=== PATIENT | male | born 1940 | race Caucasian/White ===

== ENCOUNTER → 2023-11-30 10:44 | Outpatient (REF) | payer MEDICARE, OTHER, SELFPAY | LOC: RAD 10:44 | PROVIDERS: ATTENDING PHYSICIAN Nurse Practitioner Family | DX: R42 Dizziness and giddiness (principal) | CPT/HCPCS: 70450 ==

== ENCOUNTER → 2023-12-01 09:49 | Outpatient (REF) | payer MEDICARE, OTHER, SELFPAY ==
[2023-12-01 12:14] LABS: ALT (SGPT) 24 U/L (0-50); AST (SGOT) 34 U/L (17-59); Albumin 4.1 g/dl (3.5-5.0); Alkaline Phosphatase 64 U/L (38-126); Blood Urea Nitrogen 26 mg/dl (9-20); Calcium 9.6 mg/dl (8.4-10.2); Carbon Dioxide 26 mmol/L (22-30); Chloride 104 mmol/L (98-107); Glucose 113 mg/dl (70-99); Potassium 4.1 mmol/L (3.5-5.1); Sodium 138 mmol/L (135-145); Total Bilirubin 2.4 mg/dl (0.2-1.3); Total Protein 6.9 g/dl (6.3-8.2); eGFR > 60.00
[2023-12-01 12:18] LABS: % Basophils 0.7 % (0-2); % Eosinophils 1.9 % (0-6); % Immature Granulocytes 0.2 % (0-0.5); % Lymphocytes 21.1 % (20.5-51.1); % Monocytes 9.7 % (1.7-9.3); % Neutrophils 66.4 % (42.2-75.2); Absolute Eosinophils 0.1 10^3/uL (0-0.7); Absolute Lymphocytes 1.2 10^3/uL (1.2-3.4); Absolute Monocytes 0.6 10^3/uL (0.1-0.6); Absolute Neutrophils 3.8 10^3/uL (1.4-6.5); Hematocrit 44.8 % (39.0-52.0); Mean Corp Hgb Conc. 33.5 g/dL (33.0-37.0); Mean Corpuscular Hgb 30.3 pg (27.0-31.0); Mean Corpuscular Volume 90.5 fL (80.0-94.0); Mean Platelet Volume 9.8 fL (7.4-10.4); Nucleated Red Blood Cells % 0 % (-); Platelet Count 206 10^3/uL (130-400); Red Blood Cell Count 4.95 10^6/uL (4.70-6.10); Red Cell Dist. Width 12.9 % (11.5-14.5); White Blood Cell Count 5.7 10^3/uL (4.8-10.8)
[2023-12-01 12:41] LABS: TSH Reflex To Free T4 1.44 uIU/ml (0.47-4.68)
== END ==
LOC: HWLAB 09:49
PROVIDERS: ATTENDING PHYSICIAN Nurse Practitioner Family
DX: R42 Dizziness and giddiness (principal); E78.2 Mixed hyperlipidemia
CPT/HCPCS: 36415; 80053; 84443; 85025

== ENCOUNTER → 2023-12-06 08:31 | Outpatient (REF) | payer MEDICARE, OTHER, SELFPAY | LOC: RCS 08:31 | PROVIDERS: ATTENDING PHYSICIAN Nurse Practitioner Family | DX: R42 Dizziness and giddiness (principal) | CPT/HCPCS: 93225; 93226 ==

== ENCOUNTER → 2024-04-05 09:59 | Outpatient (REF) | payer MEDICARE, OTHER, SELFPAY ==
[2024-04-05 12:09] LABS: % Basophils 1.1 % (0-2); % Eosinophils 2.2 % (0-6); % Immature Granulocytes 0.2 % (0-0.5); % Lymphocytes 18.7 % (20.5-51.1); % Monocytes 9.3 % (1.7-9.3); % Neutrophils 68.5 % (42.2-75.2); Absolute Basophils 0.1 10^3/uL (0-0.2); Absolute Eosinophils 0.1 10^3/uL (0-0.7); Absolute Monocytes 0.5 10^3/uL (0.1-0.6); Absolute Neutrophils 3.7 10^3/uL (1.4-6.5); Hematocrit 42.8 % (39.0-52.0); Hemoglobin 14.8 g/dL (13.0-18.0); Mean Corp Hgb Conc. 34.6 g/dL (33.0-37.0); Mean Corpuscular Hgb 31.1 pg (27.0-31.0); Mean Corpuscular Volume 89.9 fL (80.0-94.0); Mean Platelet Volume 9.6 fL (7.4-10.4); Nucleated Red Blood Cells % 0 % (-); Platelet Count 193 10^3/uL (130-400); Red Blood Cell Count 4.76 10^6/uL (4.70-6.10); Red Cell Dist. Width 12.9 % (11.5-14.5); White Blood Cell Count 5.4 10^3/uL (4.8-10.8)
[2024-04-05 12:26] LABS: ALT (SGPT) 24 U/L (0-50); AST (SGOT) 30 U/L (17-59); Albumin 4.1 g/dl (3.5-5.0); Alkaline Phosphatase 61 U/L (38-126); Blood Urea Nitrogen 25 mg/dl (9-20); Calcium 9.1 mg/dl (8.4-10.2); Carbon Dioxide 27 mmol/L (22-30); Chloride 102 mmol/L (98-107); Glucose 117 mg/dl (70-99); HDL Cholesterol 78 mg/dl; LDL Cholesterol, Calculated 46 mg/dl; Potassium 4.3 mmol/L (3.5-5.1); Sodium 140 mmol/L (135-145); Total Bilirubin 2.6 mg/dl (0.2-1.3); Total Cholesterol 139 mg/dl (50-199); Total Protein 6.8 g/dl (6.3-8.2); Triglyceride 77 mg/dl (10-149); Very Low Density Lipoprotein 15 mg/dl (0-30); eGFR > 60.00
[2024-04-05 12:56] LABS: PSA, Total - Diagnostic 5.95 ng/ml (0.0-4.0); TSH Reflex To Free T4 1.75 uIU/ml (0.47-4.68)
[2024-04-05 13:14] LABS: Glycohemoglobin (HgbA1c) 5.7 % (4.0-5.6)
== END ==
LOC: HWLAB 09:59
PROVIDERS: ATTENDING PHYSICIAN Nurse Practitioner Family
DX: E78.2 Mixed hyperlipidemia (principal); I25.10 Atherosclerotic heart disease of native coronary artery without angina pectoris; K50.00 Crohn's disease of small intestine without complications; I10 Essential (primary) hypertension; K21.9 Gastro-esophageal reflux disease without esophagitis; I48.0 Paroxysmal atrial fibrillation; I25.2 Old myocardial infarction; E80.4 Gilbert syndrome; H25.13 Age-related nuclear cataract, bilateral; R97.20 Elevated prostate specific antigen [PSA]; R73.01 Impaired fasting glucose
CPT/HCPCS: 36415; 80053; 80061; 83036; 84153; 84443; 85025

== ENCOUNTER → 2024-04-24 08:50 | Outpatient (REF) | payer MEDICARE, OTHER, SELFPAY | LOC: HWRCS 08:50 | PROVIDERS: ATTENDING PHYSICIAN Internal Medicine Cardiovascular Disease; FAMILY PHYSICIAN Nurse Practitioner Family | DX: I48.0 Paroxysmal atrial fibrillation (principal) | CPT/HCPCS: 93306 ==

== ENCOUNTER 2024-07-17 22:52 | Inpatient (IN) | payer MEDICARE, OTHER, SELFPAY ==
[2024-07-17] VITALS (9 sets, daily range): BP systolic 128–183; BP diastolic 60–88; BMI 26.0
[2024-07-17 15:36] LABS: % Basophils 0.5 % (0-2); % Eosinophils 1.2 % (0-6); % Immature Granulocytes 0.2 % (0-0.5); % Lymphocytes 19.4 % (20.5-51.1); % Monocytes 8.6 % (1.7-9.3); % Neutrophils 70.1 % (42.2-75.2); Absolute Eosinophils 0.1 10^3/uL (0-0.7); Absolute Lymphocytes 1.3 10^3/uL (1.2-3.4); Absolute Monocytes 0.6 10^3/uL (0.1-0.6); Absolute Neutrophils 4.6 10^3/uL (1.4-6.5); Hematocrit 42.4 % (39.0-52.0); Hemoglobin 14.3 g/dL (13.0-18.0); Mean Corp Hgb Conc. 33.7 g/dL (33.0-37.0); Mean Corpuscular Volume 89.1 fL (80.0-94.0); Mean Platelet Volume 9.5 fL (7.4-10.4); Nucleated Red Blood Cells % 0 % (-); Platelet Count 207 10^3/uL (130-400); Red Blood Cell Count 4.76 10^6/uL (4.70-6.10); Red Cell Dist. Width 12.8 % (11.5-14.5); White Blood Cell Count 6.6 10^3/uL (4.8-10.8)
[2024-07-17 15:54] LABS: ALT (SGPT) 19 U/L (0-50); AST (SGOT) 28 U/L (17-59); Albumin 4.2 g/dl (3.5-5.0); Alkaline Phosphatase 75 U/L (38-126); Blood Urea Nitrogen 21 mg/dl (9-20); Calcium 9.1 mg/dl (8.4-10.2); Carbon Dioxide 26 mmol/L (22-30); Chloride 100 mmol/L (98-107); Glucose 107 mg/dl (70-99); Potassium 4.2 mmol/L (3.5-5.1); Sodium 136 mmol/L (135-145); Total Bilirubin 2.1 mg/dl (0.2-1.3); eGFR > 60.00
[2024-07-17 16:00] LABS: Troponin I 0.105 ng/ml
[2024-07-17] MEDS: LOW STRENGTH ASPIRIN 324 MG PO (16:42)
--- NOTE | 2024-07-17 17:16 | ED.GENMED ---
History of Present Illness
General
Chief Complaint: Chest Pain
Source: patient and family (Son)
Exam Limitations: none
Time Seen by Provider: 07/17/24 16:36
Nursing documentation reviewed up to this point in time: agreed with
History of Present Illness
History of Present Illness:
84-year-old male with a past medical history of hypertension, hyperlipidemia, CAD status post stent, BPH who presents to the emergency room for evaluation of chest pain. Patient reports onset of symptoms this afternoon around 1 or 2 PM and they
lasted for a few hours and at this point have resolved�he reports that he still had mild chest pain on arrival and has essentially resolved by the time of my assessment. He describes a vague pressure sensation in his chest. No clear triggering
factors today that he reports symptoms started at rest. He does note that last week he had chest pain that started while he was shoveling snow that caused him to stop; he says pain resolved after he stopped. He says that he went out to shovel the
next day he once again had chest pain that limited him from shoveling. Today he says he has had occasional palpitations as well. He denies any associated shortness of breath, nausea, vomiting, diaphoresis. He has not had any recent cough or
fevers. No swelling in the legs. He denies any other complaints. He normally follows with Dr. Eubanks.
Past History
Past History
ED Past Medical History: Arrthythmia, CAD, HTN, Hypercholesterolemia, [place] and Other (Crohn's disease, diverticulitis, BPH)
ED Past Surgical History: Bowel resection, Cardiac (Stents X 3) and Cholecystectomy
Social History
Tobacco: Former smoker
Alcohol: Occasional
Drug: None
Personal:
Living: alone
Employment: Retired
Family History
Family History: CAD; Negative Early CAD
Review of Systems
Review of Systems
All Other Systems: ROS reviewed and negative except as documented in HPI and ROS
Constitutional: Denies fever or chills
Respiratory: Denies trouble breathing
Cardiac: Reports chest pain and palpitations; Denies syncope
ABD/GI: Denies abdominal pain, nausea or vomiting
: Denies flank pain
Musculoskeletal: Denies edema, neck pain or back pain
Neurological: Denies headache
Phy Exam
Physical Exam
Physical Exam:
General: Awake, alert, oriented x3; no acute distress
Head: Normocephalic, atraumatic
Eyes: Conjunctiva normal, EOMI
Throat: Airway intact, handling secretions
Neck: Trachea midline, no JVD
Lungs: Clear to auscultation bilaterally, no wheezing, rales, rhonchi
Heart: Regular rate and rhythm with occasional ectopy, no murmurs, gallops, or rubs
Abd: Soft, non distended, nontender
Neuro: No gross deficits
Skin: no rash
Extremities: No edema in extremities, equal pulses in all extremities
Scores
Heart Failure Risk
Heart Failure Risk Score: Not Applicable
Heart Score for Chest Pain Patients
STEMI patient?: No
History: Highly Suspicious
ECG: Normal
Age: >/= 65 years
Risk Factors: >/= 3 Risk Factors or History of CAD
Troponin: >/= 3 x Normal Limit
Heart Score for Chest Pain Patients: 8
Heart Score Risk: 72.7 % MACE over next 6 weeks
Withdrawal Assessment of Alcohol
Withdrawal Assessment Completed?: Not applicable
Course
Orders/Labs/Results
Orders:
Orders
07/17/24 14:56
Electrocardiogram (*1) Urgent
Reason for Study: Chest Pain
EKG- Treatment ONCE
07/17/24 15:16
Complete Blood Count/With Diff Urgent
Comprehensive Metabolic Panel Urgent
Troponin I Urgent
07/17/24 16:37
Aspirin Chewable [Low Strength Aspirin] 324 mg PO NOW STA
07/17/24 17:13
CARDIOLOGY CONSULT Urgent
Consulting Provider: Patel Eubanks
Was physician already notified: Yes
PTT Urgent
Comment: Obtain baseline before beginning heparin infusion if not already collected
Heparin 4,000 units IV NOW STA
Pharmacy Request to Place See Dose Instructions PO NOW STA
Discontinue all Active Warfarin orders?: Yes
Nursing to Place Non Medication Order As Directed
Physician Order: PTT 6 hours after initial start of Heparin infusion
Above order entered?: Yes
07/17/24 17:15
Heparin 27163 Units/250 ml 25,000 units in 250 ml IV PER PROTOCOL
Weight to be used for heparin protocol in kilograms (kg):: 72.9
Protocol:: Cardiac Tx/Acute Coronary
PTT Goal Range to be used:: PTT 73 to 111 seconds
Order type:: Initial
INITIAL Infusion Dose (UNITS/KG/hr) & then follow protocol:: 12 units/kg/hr
Infusion Dose in UNITS/hr & then follow protocol (UNITS/hr):: 900
INFUSION RATE in mL/hr & then follow protocol (mL/hr):: 9
PTT less than or equal to 64 seconds:: Increase rate by 200 units/hr (+ 2 mL/hr)
PTT 64.1 to 72.9 seconds:: Increase rate by 100 units/hr (+ 1 mL/hr)
PTT 73 to 111 seconds:: Target Range. No change in rate.
PTT 111.1 to 130.9 seconds:: Decrease rate by 100 units/hr (- 1 mL/hr)
PTT 131 to 199.9 seconds:: HOLD for 1 hr. Then decrease rate by 200 units/hr (- 2 mL/hr)
PTT greater than or equal to 200 seconds:: HOLD for 2 hrs & Notify Provider. Then decrease by 200 units/hr (-
2 mL/hr)
Lab follow-up:: Each change, PTT q6h until 2 consecutive are therapeutic. Then PTT
daily.
07/17/24 18:00
Troponin I Urgent
Pharmacy Request to Place See Dose Instructions IV DIRECTED
Abnormal Lab Results
07/17/24
15:16
Lymphocytes % 19.4 L %
(20.5-51.1)
BUN 21 H mg/dl
(9-20)
Glucose 107 H mg/dl
(70-99)
Total Bilirubin 2.1 H mg/dl
(0.2-1.3)
Troponin I 0.105 H* ng/ml
07/17/24 15:16
07/17/24 15:16
Vital Signs
Initial and Last Documented VS:
Initial Vital Signs
Temp Pulse Resp BP Pulse Ox
36.5 C 81 18 183/83 99
07/17/24 15:04 07/17/24 15:04 07/17/24 15:04 07/17/24 15:04 07/17/24 15:04
Last Documented Vital Signs
Temp Pulse Resp BP Pulse Ox
36.5 C 79 14 164/81 97
07/17/24 15:04 07/17/24 16:46 07/17/24 16:46 07/17/24 16:45 07/17/24 16:46
MDM/Problems Addressed
Differential Diagnosis Includes:
Unstable angina, GERD, pericarditis, costochondritis; PE considered very unlikely
MDM/Problems Addressed:
84-year-old male presents to the emergency room for evaluation of typical chest pain--had exertional symptoms while shoveling snow last week today had prolonged resting episode of chest pain that has resolved. EKG shows sinus rhythm with PACs.
Vitals significant for hypertension but otherwise normal. Physical exam as above. He had labs sent in triage including a CBC and a CMP which showed no clinically significant abnormalities. His troponin is elevated to 0.105. Will need to continue
to trend but clinical picture is concerning for unstable angina. Patient given full dose aspirin. Will provide some nitroglycerin for hypertension. Will start heparin infusion. Case discussed with cardiology for consultation. Case discussed
with hospitalist for admission.
Chronic conditions affecting care:
CAD, hypertension
Acute Exacerbation and/or Progression of Chronic Illness:
Acutely hypertensive managed with nitroglycerin
Acute Exacerbation and/or Progression of Chronic Illness: HTN
*Pulse Oximetry
Patient hypoxic: no
*EKG
Interpreted by ED Provider?: Yes
Heart Rate: 72
Rate: normal
Rhythm: sinus and PAC's
[place]: normal axis
Interval: normal interval
QRS Pattern: normal QRS
Ischemia: no ischemia
*Critical Care Note
Total Time (30-74mins, 75-104mins- exclusive of procedures): Not Applicable
Data Reviewed
Review of Other/Old Records Reveals: Labs and Records
Source: patient, records and family
Patient Management
Discussion with other providers: Hospitalist (Discussed with hospitalist) and Groundsman (Discussed with cardiology)
Escalation/DeEscalation of care consider admission/obs:
Admission indicate
ED Attending Note
-
Portions of this chart may have been created with voice recognition software.� Occasional wrong word or��sound alike� substitutions may have occurred due to the inherent limitations of voice recognition software.
Discharge Plan
Departure
Patient Disposition: Admit
Date of Disposition: 07/17/24
Time of Disposition: 17:16
Admit to doctor: Duran
Presentation/result/management discussed w/ accepting MD/DO: Hospitalist
Discharge Problem:
Unstable angina
Prescriptions:
No Action
tamsulosin 0.4 MG capsule
0.8 mg PO DAILY
simvastatin 20 MG tablet
20 mg PO HS
ascorbic acid (vitamin C) 250 MG tablet
250 mg PO DAILY
omeprazole 20 MG capsule,delayed release(DR/EC)
20 mg PO DAILY
cyanocobalamin (vitamin B-12) 1,000 MCG tablet
500 mcg PO DAILY
amlodipine 5 MG tablet
5 mg PO DAILY
aspirin 81 MG tablet,chewable
81 mg PO DAILYPRN PRN (Reason: feels he needs it)
finasteride 5 MG tablet
5 mg PO DAILY
cholestyramine (with sugar) 4 GM powder in packet
4 gm PO BID
omega 5-jwi-vyn-fish oil [Fish Oil] 1 EACH capsule
1 ea PO DAILY
bromfenac [Prolensa] 3 ML drops
1 drp RIGHT EYE DAILY
tamsulosin 0.4 MG capsule
0.4 mg PO DAILY Qty: 5 0RF
ondansetron 4 MG tablet,disintegrating
4 mg PO Q8HPRN PRN (Reason: Nausea/Vomiting) Qty: 5 0RF
naproxen 500 MG tablet
500 mg PO Q6HPRN PRN (Reason: severe pain) Qty: 10 0RF
tramadol 50 MG tablet
50 mg PO QID PRN (Reason: pain) Qty: 12 0RF
meclizine 12.5 mg tablet
12.5 mg PO TID PRN (Reason: dizziness) Qty: 10 0RF
Referrals:
Boogie Martin CRNP [Family Provider] -
Interventions
Interventions:
*Risk Screen - Suicide Last Done: 07/17/24 15:04
*General Assessment Last Done: 07/17/24 15:04
*Neglect/Abuse Screening Last Done: 07/17/24 15:04
ED- Fall Risk Assessment Last Done: 07/17/24 16:53
*ED COVID-19 Vaccine History Last Done: 07/17/24 16:46
ED- Cardiac Assessment Last Done: 07/17/24 16:46
Discharge Date and Time
Print Language: COMORAN
[2024-07-17] MEDS: NITROSTAT (SUBLINGUAL) 0.4 MG SL (17:25)
[2024-07-17] MEDS: HEPARIN 4000 UNITS IV (17:35)
[2024-07-17] MEDS: HEPARIN 25000 UNITS/250 ML IV (17:40)
--- NOTE | 2024-07-17 17:43 | CON.CAR ---
Consultation
Consultation Request
Date/Time Consultation Requested: 07/17/24 5:15pm
Date/Time Consultation Performed: 07/17/24 5:40pm
Requesting Provider: DR Buitrago
Performing Provider: Dr Eubanks
Reason for Consultation: chest pain
Medical History
-
Chief Complaint: chest pain
History of Present Illness:
84-year-old male with past medical history of coronary artery disease status post inferior wall [place] with Cypher stenting of LAD and RCA in 2006, hypertension, hyperlipidemia, paroxysmal atrial fibrillation, Crohn's disease, diverticulitis, and mildly
dilated aortic aneurysm presents with chest pains. He states over the past week he has had chest tightness with exertion during 2 episodes. 1 episode occurred when he was shoveling snow. He had another episode when he exerted himself requiring
him to stop. Today he had more chest discomfort on left side of his chest he rated it 3 out of 10. At that point he stopped what he was doing and came to the emergency room. He was given nitroglycerin and his symptoms resolved. Cardiac troponin
is abnormal at 0.1. He currently is pain-free. He denies any orthopnea, PND, or edema. He has no fevers or chills. He has no coughing or wheezing. He has felt no palpitations or syncope.
Past Medical History
Past Medical History: Arrhythmias (Paroxysmal atrial fibrillation declining anticoagulation), CAD (Inferior wall [place] status post LAD and safer stenting 2006), HTN, Hypercholesterolemia and Other (Crohn's disease, diverticulitis, B12 deficiency,
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
Past Surgical History: Appendectomy, Bowel Resection (1971) and Cholecystectomy
Social History
Tobacco: Non-Smoker
Alcohol: None
Drug: None
Employment: Retired
Family History
Family History: CAD and Hypertension
Allergies / Home Medications
Allergy/AdvReac Type Severity Reaction Status Date / Time
No Known Allergies Allergy Verified 07/17/24 15:04
�Medication �Instructions �Recorded �Confirmed �Type
simvastatin 20 mg tablet 20 mg PO HS 07/26/10 07/17/24 History
tamsulosin 0.4 mg capsule 0.4 mg PO BID 07/26/10 07/17/24 History
ascorbic acid (vitamin C) 250 mg 250 mg PO DAILY 09/21/16 07/17/24 History
tablet
cyanocobalamin (vitamin B-12) 1,000 mcg PO DAILY 09/21/16 07/17/24 History
1,000 mcg tablet
aspirin 81 mg chewable tablet 81 mg PO DAILY 05/22/21 07/17/24 History
cholestyramine (with sugar) 4 gram 4 gm PO HS 05/22/21 07/17/24 History
powder for susp in a packet
finasteride 5 mg tablet 5 mg PO DAILY 05/22/21 07/17/24 History
omega 8-dyp-ejl-fish oil 300 1 ea PO DAILY 05/22/21 07/17/24 History
mg-1,000 mg capsule (Fish Oil)
therapeutic multivitamin 1 tab PO DAILY 07/17/24 07/17/24 History
Review of Systems
-
History Source: Patient and Family
Constitutional: Fatigue
Respiratory: No Symptoms
Cardiac: Chest Pain
Abdomen/GI: Abdominal Pain
: No Symptoms
Musculoskeletal: No Symptoms
Skin: No Symptoms
Neurological: No Symptoms
Endocrine: No Symptoms
Hematologic/Lymphatic: No Symptoms
Physical Exam
Vital Signs
Temp Pulse Resp BP Pulse Ox
97.7 F 79 14 160/88 97
07/17/24 15:04 07/17/24 16:46 07/17/24 16:46 07/17/24 17:25 07/17/24 16:46
Lab Results
07/17/24 15:16
07/17/24 15:16
Troponin I 0.105 ng/ml H* 07/17/24 15:16
Physical Exam
General: Well Developed and Well Nourished
HEENT: Normocephalic and Anicteric
Respiratory: Clear and Non Labored Respirations
Cardiac: S1/S2, Regular Rhythm and Murmur (07/09 syst LSB)
GI: Soft, Non Tender and Non Distended
Genito-urinary: No Costovertebral Tender
Musculoskeletal: No Edema
Skin: Warm and Dry
Neuro: No Motor Deficits
Psych: Calm and Confused
Impression / Plan
-
Assess:
Unstable angina/non-STEMI
Hypertension
Hyperlipidemia
History of CAD status post LAD/RCA stenting 2006/inferior wall [place]
Crohn's disease
Diverticulitis
Orthostasis
Paroxysmal atrial fibrillation declining anticoagulation
Gilbert's disease
Echo 04/26: EF 55 to 60%, mild AI, mildly dilated aortic root.
PLan:
He presents with unstable angina and a non-STEMI. Agree with starting IV heparin. Continue aspirin. He has a known history of multivessel coronary arteries. I will hold off on Plavix for now as he may have three-vessel disease. Keep n.p.o. for
cardiac cath in AM. Continue to trend troponin.
Previous monitor has had some bradycardia. Will add low-dose Toprol 12.5 mg daily and watch on telemetry.
He remains in sinus rhythm from today. He has had some paroxysmal atrial fibrillation a fast but has declined full anticoagulation. He has a history of Crohn's disease.
Check lipids. Switch simvastatin to high-dose atorvastatin 40 mg daily.
Will check repeat echocardiogram to reevaluate LVEF. LVEF was preserved in the fall.
Data Reviewed
-
EKG: Report Reviewed by me
Medical Tests (Nuc Med, Echo etc): Report Reviewed by me
Labs: Labs Reviewed by me
Old Records: Reviewed
[2024-07-17 17:46] LABS: APTT 30.8 Sec (23.4-35.0)
[2024-07-17 17:52] LABS: INR 1.01; PT 13.6 Sec (11.4-14.6)
[2024-07-17 17:53] LABS: Troponin I 0.111 ng/ml
--- NOTE | 2024-07-17 18:00 | HPS.HSE ---
Family Physician
-
Family Physician: JOHN Villanueva
Chief Complaint
-
Chest pain
History of Present Illness
Mr. Ramos is a 84-year-old male with a medical history of Crohn's disease (remote history of partial bowel resection 1971), CAD (prior stents x3 in 2007), mixed hyperlipidemia, and prostate enlargement who presents from home with chest pain. He
reports intermittent chest pain during the past 2 weeks, previously when shoveling snow a week ago at which time his chest discomfort was associated with shortness of breath. Today his chest pain began while at rest and was associated with
palpitations. He denies any aggravating factors and rated the pain 3/10.
In the ED, he was hemodynamically stable. Lab work revealed elevated troponin of 0.111. EKG showed no acute ischemic changes. He was given sublingual nitro with relief of his chest discomfort. He was also loaded with aspirin and started on
anticoagulation with IV heparin drip. He is being admitted for further evaluation and management of NSTEMI.
Medical History
Past Medical History
Past Medical History: Reports CAD
Past Surgical History: Reports Bowel Resection and Cardiac (Stents x 3)
Social History
Tobacco: Former Smoker
Alcohol: Occasional
Family History
Family History: Not pertinent
Allergies / Home Medications
Allergies reflects when Allergies were last updated in [facility].
Home Medications with original date entered in [facility]
Allergy/Medication List:
No known allergies
Review of Systems
-
History Source: Patient
A 12 point ROS was completed and negative except as noted: Yes
Physical Exam
Vital Signs
Vital Signs
Temp Pulse Resp BP Pulse Ox
97.7 F 88 21 160/88 95
07/17/24 15:04 07/17/24 17:45 07/17/24 17:45 07/17/24 17:25 07/17/24 17:45
Physical Exam
General: No Apparent Distress
Laboratory Results
-
07/17/24 15:16
07/17/24 15:16
Laboratory Results
PT 13.6 Sec (11.4-14.6) 07/17/24 17:18
INR 1.01 07/17/24 17:18
APTT 30.8 Sec (23.4-35.0) 07/17/24 17:18
Total Bilirubin 2.1 mg/dl (0.2-1.3) H 07/17/24 15:16
AST 28 U/L (17-59) 07/17/24 15:16
ALT 19 U/L (0-50) 07/17/24 15:16
Alkaline Phosphatase 75 U/L (38-126) 07/17/24 15:16
Troponin I 0.111 ng/ml H* 07/17/24 17:18
Data Reviewed
-
Medical Tests (Nuc Med, Echo, EKG etc): Report Reviewed by me
Lab Data: Labs Reviewed by me
Impression/Plan
-
Gen-AAOx3, NAD
HEENT-NC, AT, anicteric, clear oral mm
Neck-supple
CV-reg, no M, +S1/S2
Lungs-clear B/L
Abd-soft, NT, ND
Musculoskeletal-no edema, no deformity
Skin-warm and dry
Neuro-grossly non-focal
Psych-calm, cooperative
Mr. Ramos is a 84-year-old male with a medical history of Crohn's disease (remote history of partial bowel resection 1971), CAD (prior stents x3 in 2007), mixed hyperlipidemia, and prostate enlargement who presents from home with chest pain. He
reports intermittent chest pain during the past 2 weeks, previously when shoveling snow a week ago at which time his chest discomfort was associated with shortness of breath. Today his chest pain began while at rest and was associated with
palpitations. He denies any aggravating factors and rated the pain 3/10.
In the ED, he was hemodynamically stable. Lab work revealed elevated troponin of 0.111. EKG showed no acute ischemic changes. He was given sublingual nitro with relief of his chest discomfort. He was also loaded with aspirin and started on
anticoagulation with IV heparin drip. He is being admitted for further evaluation and management of NSTEMI.
NSTEMI:
-Loaded with aspirin, started on anticoagulation with IV heparin drip
-Currently chest pain-free following administration of sublingual nitro, continue nitro as needed
-N.p.o. after midnight for planned coronary angiography in the morning
-Continue daily aspirin and statin therapy, will likely need to increase statin dose
-Telemetry monitoring, EKG as needed for chest pain
-Further recommendations per cardiology
Prostate enlargement:
-Continue finasteride and tamsulosin
-No evidence of bladder outlet obstruction, renal function within normal limits
CODE STATUS: Patient confirmed full code (of note, patient does not want to be kept alive on life support for prolonged period of time but is okay with chest compressions and intubation emergently)
[2024-07-17] MEDS: FLOMAX 0.4 MG PO (22:02)
[2024-07-17] MEDS: LIPITOR 10 MG PO (22:02)
[2024-07-17] MEDS: QUESTRAN 4 GRAM PO (22:36)
[2024-07-18] VITALS (17 sets, daily range): BP systolic 94–165; BP diastolic 56–103; BMI 24.8
--- NOTE | 2024-07-18 00:05 | PTCARENOTE ---
Patient arrived from the ED via stretcher. Patient AAOx3, VSS. Ambulated into the room. Patient has no c/o chest pain at this time. Patient arrived with heparin gtt running at 9 units/hr (9ml/hr). Patient educated on plan of care and NPO status for
procedure tomorrow. Call boland is within reach.
[2024-07-18 00:08] LABS: APTT 67.2 Sec (23.4-35.0)
[2024-07-18 07:20] LABS: APTT 84.5 Sec (23.4-35.0)
[2024-07-18] MEDS: LOW STRENGTH ASPIRIN 81 MG PO (07:49)
[2024-07-18] MEDS: FLOMAX 0.4 MG PO ×2 (07:49→19:36)
[2024-07-18] MEDS: VITAMIN B-12 1000 MCG PO (07:49)
[2024-07-18] MEDS: PROSCAR 5 MG PO (07:49)
[2024-07-18 08:22] LABS: Blood Urea Nitrogen 20 mg/dl (9-20); Calcium 8.8 mg/dl (8.4-10.2); Carbon Dioxide 24 mmol/L (22-30); Chloride 103 mmol/L (98-107); Estimated Creatinine Clearance 61 ml/min; Glucose 99 mg/dl (70-99); Magnesium 2.1 mg/dl (1.6-2.3); Phosphorus 3.6 mg/dl (2.5-4.5); Potassium 4.5 mmol/L (3.5-5.1); Sodium 134 mmol/L (135-145); eGFR > 60.00
--- NOTE | 2024-07-18 10:50 | CM ---
Pt seen bedside w/ son, Milton. Initial assessment completed. Admitted for chest pain.
Pt reports that he lives w/ his sig other in a 2ST[address]- 1 step from the porch to the home. Ramp access to enter the home. Pt reports that his son lives across the street.
Pt states that he is independent primarily w/ ambulating but does have 2 walkers and 2 wheelchairs. 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
Pt denies SNF/VN/PT hx
Address, point of contact and insurance verified
PCP: Dr. Martin
Pharmacy: [facility]
Plan: Home; no needs anticipated
CM will cont to follow for d/c planning
[2024-07-18 13:57] LABS: APTT 72.1 Sec (23.4-35.0)
[2024-07-18 15:32] LABS: ACT-LR - POC 234 Seconds (116-155)
[2024-07-18 15:59] LABS: ACT-LR - POC 268 Seconds (116-155)
[2024-07-18 16:04] LABS: Troponin I 0.068 ng/ml
--- NOTE | 2024-07-18 17:00 | W.PN.HOSP.TC ---
Today's Communication/Plan
-
Assessment / Plan
Assessment / Plan
Gen-AAOx3, NAD
HEENT-NC, AT, anicteric, clear oral mm
Neck-supple
CV-reg, no M, +S1/S2
Lungs-clear B/L
Abd-soft, NT, ND
Musculoskeletal-no edema, no deformity
Skin-warm and dry
Neuro-grossly non-focal
Psych-calm, cooperative
Mr. Ramos is a 84-year-old male with a medical history of Crohn's disease (remote history of partial bowel resection 1971), CAD (prior stents x3 in 2007), mixed hyperlipidemia, and prostate enlargement who presented from home with chest pain. He
experienced intermittent chest pain during the past 2 weeks prior to arrival, previously when shoveling snow a week ago at which time his chest discomfort was associated with shortness of breath. On the day of admission, his chest pain began while
at rest and was associated with palpitations. In the ED, he was hemodynamically stable. Lab work revealed elevated troponin of 0.111. EKG showed no acute ischemic changes. He was given sublingual nitro with relief of his chest discomfort. He
was also loaded with aspirin and started on anticoagulation with IV heparin drip. He was admitted for further evaluation and management of NSTEMI.
NSTEMI:
-Loaded with aspirin, continue anticoagulation with IV heparin drip
-Continue sublingual nitro as needed
-N.p.o. after midnight for planned coronary angiography today 07/18
-Continue daily aspirin and statin therapy, will likely need to increase statin dose
-Telemetry monitoring, EKG as needed for chest pain
-Further recommendations per cardiology
Prostate enlargement:
-Continue finasteride and tamsulosin
-No evidence of bladder outlet obstruction, renal function within normal limits
CODE STATUS: Patient confirmed full code (of note, patient does not want to be kept alive on life support for prolonged period of time but is okay with chest compressions and intubation emergently)
Anticipated Discharge: 24 - 48 hours
Subjective/Interval History
-
Date of Service: July 18, 2024
Mr. Ramos was seen and examined at bedside this morning. No chest pain or other complaints. He has been n.p.o. since midnight for planned cardiac cath today. Remains on IV heparin drip for treatment of NSTEMI.
Objective Data
-
Labs:
Laboratory Results
07/18/24 07/18/24 07/18/24
06:56 13:27 20:00
APTT 84.5 H 72.1 H Pending
Sodium 134 L
Potassium 4.5
Chloride 103
Carbon Dioxide 24
BUN 20
Creatinine 0.8
Glucose 99
Calcium 8.8
Vital Signs:
Vital Signs
Temp Pulse Resp BP Pulse Ox
98.3 F 72 17 128/71 97
07/18/24 11:20 07/18/24 16:54 07/18/24 16:54 07/18/24 16:54 07/18/24 16:54
I&O
07/17/24 07/18/24 07/19/24
06:59 06:59 06:59
Intake Total 360 / 360
Balance 360 / 360
Review of Systems
-
History Source: Patient
All other systems: Reviewed and negative
--- NOTE | 2024-07-18 17:11 | ITS.CL.CATH ---
[employer] - Catheterization
Cardiac Catheterization
Procedure Report:
LEFT HEART CATHETERIZATION
Date of Procedure: July 18, 2024
Referring: Abdulaziz Eubanks
PROCEDURES:
1. Left heart catheterization, coronary angiogram.
2. Ultrasound-guided access
INDICATION: Mr. Ramos is a 84-year-old gentleman with past medical history of hypertension, hyperlipidemia, Crohn's disease, diverticulitis, orthostasis, paroxysmal atrial fibrillation, declining anticoagulation, Gilbert's disease, history of
coronary artery disease status post LAD and RCA PCI in 2006 in the setting of an inferior wall CO who presents this admission after an episode of rest angina concerning for possible NSTEMI with mild troponin I elevation of 0.1. Echocardiogram is
pending. He is now being referred for left heart catheterization to rule out obstructive CAD. Upon discussion with patient and the son, patient does live independently with his girlfriend, drives, does his own ADLs, does not use any assisted
walking devices.
ACCESS: Right radial artery, 6 Bhutanese sheath, under ultrasound guidance
Ultrasound was utilized for vascular access. The radial artery was visualized under ultrasound, and the vessel was patent and pulsatile. An image was stored permanently in the patient's medical record. Under direct ultrasound guidance, a 6 Bhutanese
sheath was inserted into the artery using a micropuncture kit through a modified Seldinger technique.
HEMODYNAMICS : (mmHg)
AO (s/d) : 72/40
LV (s/d) : 78/2
LVEDP : 6
CORONARY FINDINGS
DOMINANCE: Right
LEFT MAIN: The left main artery is a large-caliber vessel which gives rise to the left anterior descending artery and the left circumflex artery. Distal left main appears to have hazy, calcified 80 to 85% stenosis extending into the ostial LAD and
ostial left circumflex (Miner 1, 1, 1)
LEFT ANTERIOR DESCENDING: The left anterior descending artery is a medium to large caliber vessel which gives rise to multiple small caliber diagonal branches as it courses through the anterior interventricular groove and wraps around the apex.
Proximal LAD stent and distal LAD stents are patent. Ostial LAD has eccentric, hazy, calcified 85 to 90% stenosis extending from the distal left main. D1 is a small caliber vessel with 70 to 80% ostial stenosis. TIFFANIE-3 flow is noted into the
distal vessel.
CIRCUMFLEX: The left circumflex artery is a medium to large caliber vessel which gives rise to 1 major branching obtuse marginal branch. Ostial left circumflex has eccentric 70% stenosis. Mid left circumflex just proximal to the OM has a hazy 60
to 70% stenosis. TIFFANIE-3 flow is noted into the distal vessel.
RIGHT CORONARY ARTERY: The right coronary artery is a medium to large caliber, dominant vessel which gives rise to the right posterior descending artery and the right posterolateral system. Mid LAD has a hazy up to 8085% stenosis with some haziness
noted at the proximal stent edge, cannot definitively rule out thrombus. Otherwise there is minimal luminal irregularities. TIFFANIE-3 flow was noted into the distal vessels.
SEDATION: 55 minutes of procedural sedation was utilized. An independent medical insurance coder was present to assist with and help manage the patient's level of consciousness and physiologic status.
RADIATION SUMMARY: Fluoro Time (min): 11.8, dose (mGy): 387.73, DAP (Gy.cm2) : 28.3
Closure Device: Vascular band over right radial artery, 10 cc of air.
CONCLUSIONS
1. Significant multivessel coronary artery disease involving distal left main extending into the ostial LAD and ostial left circumflex artery (Miner 1, 1, 1) and mid RCA.
2. Low normal LVEDP
RECOMMENDATIONS
1. Extensive discussion was had with the son in regards to potential treatment options including medical therapy only, versus high risk Impella assisted PCI versus coronary artery bypass grafting. We will consult CT surgery for a heart team
discussion to assess perioperative risk given patient's advanced age and frailty.
2. In the interim continue treatment for ACS with daily baby aspirin, high intensity statin, beta-chantale and IV unfractionated heparin for 48 hours.
3. Echocardiogram to assess biventricular function and rule out any significant valvular abnormalities.
4. Aggressive management of cardiovascular risk factors.
5. Eventual referral for outpatient cardiac rehab.
Copy to: Abdulaziz Eubanks
Sarah Luevano MD, FACC, [facility]
--- NOTE | 2024-07-18 17:23 | CONSULT.CT ---
Addendum entered and electronically signed by Cristofer Alcantar MD 07/19/24 15:40:
I saw and examined the patient.
The PA's note was reviewed and I agree with the note.
Comment:
Given the patient's advanced age, I do believe that PCI is valid option, although he does appear functional, so I would not say that he is prohibitive from a surgical perspective. I will defer to IC to discuss his options and risks of stenting, if
this is a possibility, then PCI would likely be his best option as I believe he would have a prolonged recovery simply due to his age.
Original Note:
Consultation
-
Date/Time Consultation Requested: 07/18/24
Date/Time Consultation Performed: 07/18/24 1730
Requesting Provider: Dr. Sarah Luevano MD.
Performing Provider: Florina Andino PA-C
Reason for Consultation: Multivessel CAD, evaluation for coronary artery revascularization
Patient History
Physicians
Family Physician: JOHN Villanueva
Outpatient Vacuum Bottle Assembler: Dr. Abdulaziz Eubanks MD.
Inpatient Vacuum Bottle Assembler: Dr. Abdulaziz Eubanks MD.
History of Present Illness
Patient is an 84-year-old male with PMH significant for CAD s/p inferior wall RI with Cypher stenting of the LAD and RCA in 2006, HTN, HLD, paroxysmal atrial fibrillation (declining anticoagulation), Crohn's disease, Gilbert's disease (baseline
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
Patient has had 2 episodes of chest pain within the past week. 1 episode was with exertion while shoveling snow. His most recent episode occurred at rest and was so severe it prompted him to seek medical attention via the emergency department.
Patient admitted to associated SOB, PERRY, and palpitations.
Upon presentation to the emergency department patient was ruled in for non-ST elevated myocardial infarction with peak troponin of 0.111. EKG revealed sinus rhythm (72 bpm) with PVCs. Patient was admitted for further workup. He was initiated on a
heparin drip for anticoagulation. And subsequent cardiac catheterization on 07/18/2024 revealed multivessel CAD. Please refer to the summary below:
Cardiac Catheterization: 07/18/24 Luevano
LM: 80-85% distal
LAD: Proximal and distal LAD stents are patent. Ostial LAD with 85-90% stenosis from distal LM.
D1: 70-80% ostial
LCx: 70 % ostial
OM: 60-70% w/ TIFFANIE III flow in distal vessel
RCA: 80-85% mid, cannot rule out thrombus
CT surgery was consulted for coronary artery revascularization evaluation.
Past Medical History
Past Medical History: Other
CAD s/p inferior wall RI with Cypher stenting of the LAD and RCA in 2006
HTN/HLD
Paroxysmal atrial fibrillation (declining anticoagulation)
Crohn's disease
Gilbert's disease (baseline 1.9-2.6)
Diverticulitis
B12 deficiency
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
Past Surgical History
Past Surgical History: Other
Appendectomy 1971
Bowel resection 1971
Cholecystectomy
Dental History
Noncontributory
Family History
Mother: at Age (93) and Cause of (Natural causes)
Father: at Age (78) and Cause of (Unknown)
Family Medical History: Other (Denies family history of CAD)
Social History
Alcohol: Occasional
Drug: None
Tobacco: Former Smoker (Quit 42 years ago)
Personal:
Living: With Roomate (Lives with significant other, has a total of 8 children.)
Employment: Retired (Formally worked for [employer])
Allergies
Allergy/AdvReac Type Severity Reaction Status Date / Time
No Known Allergies Allergy Verified 07/17/24 15:04
Home Medications
�Medication �Instructions �Recorded �Confirmed �Type
simvastatin 20 mg tablet 20 mg PO HS 07/26/10 07/17/24 History
tamsulosin 0.4 mg capsule 0.4 mg PO BID 07/26/10 07/17/24 History
ascorbic acid (vitamin C) 250 mg 250 mg PO DAILY 09/21/16 07/17/24 History
tablet
cyanocobalamin (vitamin B-12) 1,000 mcg PO DAILY 09/21/16 07/17/24 History
1,000 mcg tablet
aspirin 81 mg chewable tablet 81 mg PO DAILY 05/22/21 07/17/24 History
cholestyramine (with sugar) 4 gram 4 gm PO HS 05/22/21 07/17/24 History
powder for susp in a packet
finasteride 5 mg tablet 5 mg PO DAILY 05/22/21 07/17/24 History
omega 6-zlc-trp-fish oil 300 1 ea PO DAILY 05/22/21 07/17/24 History
mg-1,000 mg capsule (Fish Oil)
therapeutic multivitamin 1 tab PO DAILY 07/17/24 07/17/24 History
Review of Systems
-
History Source: Patient
General: Denies Fever, Weight Gain, Weight Loss or Chills
HEENT: Denies Visual Changes, Dysphagia, Hoarseness or Sore Throat
Respiratory: Reports SOB and PERRY; Denies Cough, Asthma or PND
Cardiac: Reports Chest Pain, CAD and Palpitations; Denies Known Vascular Disease, Nausea, Vomiting, Diaphoresis or Edema
Abdomen/GI: Denies Abdominal Pain, Reflux, Indigestion, Diarrhea, Constipation or BRBPR
: Reports Nocturia (At least 1-2 episodes per night); Denies Dysuria, Frequency, Incontinence or Hematuria
Musculoskeletal: Denies Myalgias, Joint Pain or Edema
Skin: Denies Itching or Rash
Neurological: Denies CVA, TIA, Headaches, Syncope, Dizzy, Numbness or Seizures
Vascular: Denies Claudication or PVD
Physical Exam
Vital Signs
Temp 98.3 F 07/18/24 11:20
Temp route: Oral 07/18/24 11:20
Pulse 72 07/18/24 16:54
Rhythm: Sinus bradycardia 07/18/24 08:10
With- Normal sinus rhythm 07/18/24 08:10
Resp Rate 17 07/18/24 16:54
Blood pressure 128/71 07/18/24 16:54
Blood pressure extremity used: Left upper arm 07/18/24 16:50
Position: Sitting 07/18/24 16:50
MAP (cuff-David Monitor) 89 07/18/24 16:54
SaO2 97 07/18/24 16:54
Oxygen Mode of Delivery Room air 07/18/24 16:50
Can the patient verbally communicate their pain? Yes 07/18/24 16:50
Pain scale ratin 07/17/24 21:50
Actual Weight 153 lb 7 oz 07/18/24 00:52
Body Mass Index (BMI) 24.8 07/18/24 00:52
Labs
07/17/24 15:16
07/18/24 06:56
PT 13.6 Sec (11.4-14.6) 07/17/24 17:18
APTT 72.1 Sec (23.4-35.0) H 07/18/24 13:27
Troponin I Cancelled 07/18/24 22:00
Diagnostic Studies
Cardiac Catheterization: 07/18/24 Luevano
LM: 80-85% distal
LAD: Proximal and distal LAD stents are patent. Ostial LAD with 85-90% stenosis from distal LM.
D1: 70-80% ostial
LCx: 70 % ostial
OM: 60-70% w/ TIFFANIE III flow in distal vessel
RCA: 80-85% mid, cannot rule out thrombus
EK07/17/24:
SR (72) w/ PVS's
Exam
General: Well Developed, Well Nourished, No Apparent Distress and Comfortable
HEENT: Normocephalic, Moist Mucous Membranes, Atraumatic, PERRLA and EOMI
Neck: Trachea Midline; Negative Carotid Bruit or Mass
Respiratory: Clear; Negative Wheezes, Crackles, Rhonchi or Accessory Muscle Use
Cardiac: S1/S2 and Regular Rhythm; Negative Murmur, Rub or Gallop
GI: Soft, Non Tender, Non Distended and Normal Bowel Sounds
Rectal: Deferred by Provider
Skin: Warm and Dry; Negative Rash
Neuro: AO x 3, No Motor Deficits and CN X-XII Intact
Extremities: Negative Upper Level Edema, Lower Level Edema, Upper Level Cyanosis, Lower Level Cyanosis, Upper Level Clubbing or Lower Level Clubbing
Psych: Calm
Assessment / Plan
-
Assessment:
84-year-old male with PMH of:
CAD s/p inferior wall RI with Cypher stenting of the LAD and RCA in 2006
HTN/HLD
Paroxysmal atrial fibrillation (declining anticoagulation)
Crohn's disease
Gilbert's disease (baseline 1.9-2.6)
Diverticulitis
B12 deficiency
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
Now with newly diagnosed:
NSTEMI (peak troponin 0.111)
Unstable angina
Progressing multivessel CAD
Plan:
Continue primary management per hospitalist/medicine.
Cardiology consulted, continue heparin drip.
Patient's case will be discussed with attending physician.
Further details regarding patient's plan will be determined after attending physicians full evaluation.
Routine preoperative cardiothoracic surgery orders were initiated.
--- NOTE | 2024-07-18 18:04 | PTCARENOTE ---
Received patient from the pharmaceutical laboratory technician after cardiac cath with access from the right radial artery. Radial band in place which is dry and intact, strong radial pulse palpable. Reinforced post cath restrictions with the patient and monitoring VS.
Patient's son and SO at the bedside.
[2024-07-18] MEDS: TOPROL XL 25 MG PO (19:35)
[2024-07-18 20:06] LABS: APTT 40.8 Sec (23.4-35.0)
[2024-07-18] MEDS: LIPITOR 40 MG PO (22:03)
[2024-07-18] MEDS: HEPARIN 25000 UNITS/250 ML IV (22:11)
[2024-07-18] MEDS: QUESTRAN PO (22:20)
--- NOTE | 2024-07-18 23:38 | PTCARENOTE ---
Received patient at change of shift. SR/SB on the monitor, HR in the 50-60s. Radial band removed and dressing applied, see documentation. Heparin restarted as per order, see MAR. No complaints from pt at this time, call boland within reach.
[2024-07-19 03:04] VITALS: BP 126/59
[2024-07-19 03:46] LABS: Hematocrit 39.1 % (39.0-52.0); Hemoglobin 13.4 g/dL (13.0-18.0); Mean Corp Hgb Conc. 34.3 g/dL (33.0-37.0); Mean Corpuscular Volume 87.5 fL (80.0-94.0); Mean Platelet Volume 9.8 fL (7.4-10.4); Platelet Count 188 10^3/uL (130-400); Red Blood Cell Count 4.47 10^6/uL (4.70-6.10); Red Cell Dist. Width 12.6 % (11.5-14.5); White Blood Cell Count 6.7 10^3/uL (4.8-10.8)
[2024-07-19 04:05] LABS: ALT (SGPT) 16 U/L (0-50); AST (SGOT) 26 U/L (17-59); Albumin 3.4 g/dl (3.5-5.0); Alkaline Phosphatase 61 U/L (38-126); Blood Urea Nitrogen 19 mg/dl (9-20); Calcium 8.4 mg/dl (8.4-10.2); Carbon Dioxide 24 mmol/L (22-30); Chloride 105 mmol/L (98-107); Estimated Creatinine Clearance 61 ml/min; Glucose 96 mg/dl (70-99); Magnesium 2.1 mg/dl (1.6-2.3); Phosphorus 3.6 mg/dl (2.5-4.5); Potassium 4.3 mmol/L (3.5-5.1); Sodium 137 mmol/L (135-145); Total Bilirubin 2.1 mg/dl (0.2-1.3); Total Protein 5.9 g/dl (6.3-8.2); eGFR > 60.00
[2024-07-19 07:14] VITALS: BP 109/45
[2024-07-19] MEDS: FLOMAX 0.4 MG PO ×2 (08:20→19:28)
[2024-07-19] MEDS: LOW STRENGTH ASPIRIN 81 MG PO (08:20)
[2024-07-19] MEDS: VITAMIN B-12 1000 MCG PO (08:20)
[2024-07-19] MEDS: TOPROL XL 25 MG PO (08:20)
--- NOTE | 2024-07-19 08:47 | W.PN.CARDCBS ---
Addendum entered and electronically signed by Bret Ash MD 07/19/24 17:35:
Attending addendum: I personally met with and reviewed catheterization angiogram with patient and family members. We discussed all treatment options including medical therapy, PCI, CABG and risk of each and benefit of each. Mr. Ramos does live
independently. He drives, mows his lawn, and continues to remain very active. Family members in the room say he is 'more like a 74 y/o than an 84 y/o'. However, he is 84 y/o and surgical intervention would carry real risks and potential need for
rehab. Stenting would be complex and would require Impella support given RCA disease and LM / LAD / LCx disease. I quoted risk for 1-3% and major morbidity (most likely from vascular access) around 10-15%. Similar to those estimated by STS
calculator. Two family members were present during my meeting and actively involved in these discussions. At the end of this discussion, Mr. Ramos and his family wanted time to discuss amongst themselves and other family members. I will followup
with them in the morning
Original Note:
Today's Communication / Plan
-
multidisciplinary discussion/evaluation regarding options for treatment of CAD
repeat echo
check lipids
IV heparin, asa, statin, toprol
Impression / Plan
-
Assess:
Presentation with CP
Unstable angina/non-STEMI with peak trop 0.1
Hypertension
Hyperlipidemia
History of CAD status post LAD/RCA stenting 2006/inferior wall IL
Crohn's disease
Diverticulitis
Orthostasis
Paroxysmal atrial fibrillation declining anticoagulation
Gilbert's disease
Echo 04/26: EF 55 to 60%, mild AI, mildly dilated aortic root.
Plan:
He presented with chest pain and ruled in for NSTEMI with peak troponin of 0.1. He underwent cardiac catheterization 07/18/2024 with significant multivessel coronary disease involving the distal left main extending into LAD and circumflex as well as
mid RCA
-CT surgery consulted. Will require multiple disciplinary discussion with CT surgery as well as interventional cardiology. He would potentially be a candidate for high risk Impella assisted PCI versus bypass versus medical therapy. This was
discussed with patient today. At this point he appears to be leaning towards more conservative management, however would like to hear his options and then will discuss with his son
-Continue IV heparin, aspirin, Toprol, statin. holding off on plavix for now while evaluation ongoing
-lipids pending
-for repeat echo, last from April with results as above
-He remains in sinus rhythm from today. He has had some paroxysmal atrial fibrillation in the past but has declined full anticoagulation. He has a history of Crohn's disease.
-d/w nursing. d/w hospitalist
Progress Note - Decorating Consultant
Subjective
Date of Service: July 19, 2024
No issues overnight
Objective
Labs:
07/19/24 03:13
07/19/24 03:13
Labs
Hgb 13.4 g/dL (13.0-18.0) 07/19/24 03:13
Hct 39.1 % (39.0-52.0) 07/19/24 03:13
Plt Count 188 10^3/uL (130-400) 07/19/24 03:13
PT 13.6 Sec (11.4-14.6) 07/17/24 17:18
INR 1.01 07/17/24 17:18
APTT 78.0 Sec (23.4-35.0) H 07/19/24 03:13
Sodium 137 mmol/L (135-145) 07/19/24 03:13
Potassium 4.3 mmol/L (3.5-5.1) 07/19/24 03:13
BUN 19 mg/dl (9-20) 07/19/24 03:13
Creatinine 0.8 mg/dL (0.7-1.3) 07/19/24 03:13
Glucose 96 mg/dl (70-99) 07/19/24 03:13
Troponins
07/17/24 07/17/24 07/18/24
15:16 17:18 15:07
Troponin I 0.105 H* 0.111 H* 0.068 H*
07/18/24
22:00
Troponin I Cancelled
Vital Signs and I&O:
Vital Signs
Temp Pulse Resp BP Pulse Ox
97.8 F 93 20 109/45 97
07/19/24 07:11 07/19/24 07:45 07/19/24 07:11 07/19/24 07:14 07/19/24 07:53
Vital Signs
Temp Pulse Resp BP Pulse Ox
97.8 F 93 20 109/45 97
07/19/24 07:11 07/19/24 07:45 07/19/24 07:11 07/19/24 07:14 07/19/24 07:53
Intake & Output
07/17/24 07/18/24 07/19/24 07/20/24
07:59 07:59 07:59 07:59
Intake Total 360 / 360
Balance 360 / 360
Physical Exam
Physical Exam
GEN: No distress, awake, alert, oriented x3. sitting in chair
HEENT: supple, anicteric, mmm, eomi
LUNGS: CTA B/L, no wheezes/rales
CV: Reg, S1/S2, no murmur
ABD: soft, BS+, NT/ND
EXT: No cyanosis, clubbing, edema
NEURO: Gross non-focal
SKIN: Warm, pink, dry. No rash. R wrist site c/d/i
[2024-07-19 10:05] LABS: APTT 93.3 Sec (23.4-35.0)
[2024-07-19 10:12] LABS: HDL Cholesterol 70 mg/dl; LDL Cholesterol, Calculated 37 mg/dl; Total Cholesterol 121 mg/dl (50-199); Triglyceride 70 mg/dl (10-149); Very Low Density Lipoprotein 14 mg/dl (0-30)
--- NOTE | 2024-07-19 10:36 | CM ---
Chart reviewed. Patient is independent of ADLS, lives with his significant other in a [address], 1 [address], 0 [address]ME. Patient's son lives across the street. Patient waiting on plan of care, CABG vs PCI. Plan is for the patient to return home. CM to follow
--- NOTE | 2024-07-19 10:40 | CM ---
Chart reviewed. PT evaluation recommending Acute Rehab. Patient is agreeable to go to [facility] [place]. Insurance authorization approved, auth# [id number], NRD 07/23,
--- NOTE | 2024-07-19 10:50 | W.PN.UPDATE ---
Update Note
Progress Note Update
Patient met with myself and Dr. Alcantar today about the possibility of surgery. He remains undecided and would like time to discuss with his family. Will continue pre-operative work up and I will follow up in the morning.
[2024-07-19 11:37] VITALS: BP 128/61
--- NOTE | 2024-07-19 14:42 | PTCARENOTE ---
Deferring all pre op testing today as pt awaits plan of care that does not involve CABG.
[2024-07-19 15:15] VITALS: BP 128/65
--- NOTE | 2024-07-19 15:51 | W.PN.HOSP.TC ---
Today's Communication/Plan
-
Assessment / Plan
Assessment / Plan
Gen-AAOx3, NAD
HEENT-NC, AT, anicteric, clear oral mm
Neck-supple
CV-reg, no M, +S1/S2
Lungs-clear B/L
Abd-soft, NT, ND
Musculoskeletal-no edema, no deformity
Skin-warm and dry
Neuro-grossly non-focal
Psych-calm, cooperative
Mr. Ramos is a 84-year-old male with a medical history of Crohn's disease (remote history of partial bowel resection 1971), CAD (prior stents x3 in 2007), mixed hyperlipidemia, and prostate enlargement who presented from home with chest pain. He
experienced intermittent chest pain during the past 2 weeks prior to arrival, previously when shoveling snow a week ago at which time his chest discomfort was associated with shortness of breath. On the day of admission, his chest pain began while
at rest and was associated with palpitations. In the ED, he was hemodynamically stable. Lab work revealed elevated troponin of 0.111. EKG showed no acute ischemic changes. He was given sublingual nitro with relief of his chest discomfort. He
was also loaded with aspirin and started on anticoagulation with IV heparin drip. He was admitted for further evaluation and management of NSTEMI.
NSTEMI:
-Loaded with aspirin, continue anticoagulation with IV heparin drip
-Continue sublingual nitro as needed
-Cardiac cath 07/18 with findings of multivessel disease
-Plan for evaluation by cardiothoracic surgery, patient is not inclined to proceed with surgical interventions even if indicated, prefers more conservative approach with stenting if possible or otherwise medical management alone
-Continue daily aspirin and statin therapy
-Telemetry monitoring, EKG as needed for chest pain
-Further recommendations per cardiology
Prostate enlargement:
-Continue finasteride and tamsulosin
-No evidence of bladder outlet obstruction, renal function within normal limits
CODE STATUS: Patient confirmed full code (of note, patient does not want to be kept alive on life support for prolonged period of time but is okay with chest compressions and intubation emergently)
Anticipated Discharge: 24 - 48 hours
Subjective/Interval History
-
Date of Service: July 19, 2024
Mr. Ramos was seen and examined at bedside this morning. He underwent cardiac catheterization yesterday with findings of multivessel disease. Awaiting further evaluation today by cardiothoracic surgery. No acute events overnight.
Objective Data
-
Labs:
Laboratory Results
07/19/24 07/19/24
03:13 09:38
APTT 78.0 H 93.3 H
Sodium 137
Potassium 4.3
Chloride 105
Carbon Dioxide 24
BUN 19
Creatinine 0.8
Glucose 96
Calcium 8.4
Total Bilirubin 2.1 H
AST 26
ALT 16
Alkaline Phosphatase 61
Vital Signs:
Vital Signs
Temp Pulse Resp BP Pulse Ox
98 F 62 20 128/61 98
07/19/24 15:13 07/19/24 11:37 07/19/24 15:13 07/19/24 11:37 07/19/24 15:13
I&O
07/18/24 07/19/24 07/20/24
06:59 06:59 06:59
Intake Total 360 / 360 240 / 240
Balance 360 / 360 240 / 240
Review of Systems
-
History Source: Patient
All other systems: Reviewed and negative
[2024-07-19] MEDS: HEPARIN 25000 UNITS/250 ML IV (16:38)
--- NOTE | 2024-07-19 18:18 | PTCARENOTE ---
Pt up independently in room without problem .He denies any discomfort, heparin infusion is at therapeutic level, telemetry shows sinus rhythm. Pt seen by Drs. Alcantar and Nilsa regarding plan of care of his CAD.
[2024-07-19 18:40] VITALS: BP 138/62
[2024-07-19] MEDS: PROSCAR 5 MG PO (19:28)
--- NOTE | 2024-07-19 19:36 | PTCARENOTE ---
Received patient at change of shift. Patient sitting on bed, oriented x3. Right radial site clean, dry, and intact. Soft, no hematoma. BP 138/62, NSR 60s-70s, 97% on room air. Heparin running into right forearm @ 1100 units/hr. Denies any chest pain
at this time. Discussed plan of care for evening. Verbalized understanding. Call boland within reach.
[2024-07-19] MEDS: LIPITOR 40 MG PO (21:24)
[2024-07-19 22:51] VITALS: BP 137/63
[2024-07-19] MEDS: QUESTRAN 4 GRAM PO (23:00)
[2024-07-20] VITALS (7 sets, daily range): BP systolic 107–173; BP diastolic 52–159; BMI 24.8
[2024-07-20 04:45] LABS: APTT 98.8 Sec (23.4-35.0)
[2024-07-20 04:51] LABS: Blood Urea Nitrogen 25 mg/dl (9-20); Calcium 8.8 mg/dl (8.4-10.2); Carbon Dioxide 23 mmol/L (22-30); Chloride 104 mmol/L (98-107); Estimated Creatinine Clearance 54 ml/min; Glucose 97 mg/dl (70-99); Phosphorus 3.8 mg/dl (2.5-4.5); Potassium 4.3 mmol/L (3.5-5.1); Sodium 135 mmol/L (135-145); eGFR > 60.00
--- NOTE | 2024-07-20 09:14 | W.PN.CARDCBS ---
Addendum entered and electronically signed by Bret Ash MD 07/20/24 14:17:
Attending addendum: Patient seen and examined. PA note reviewed and findings independently confirmed by me. Family present in the room. Patient is still discussing and considering treatment options including CABG / Impella assisted PCI.
RECOMMENDATIONS:
-Will mentasta back to see patient later this afternoon
-If he and family decide bypass then will let Dr. Alcantar and CT surgical team know
-If he and family decide PCI then will load with clopidogrel and make plans for Impella assisted PCI early next week
-Would continue heparin for now.
Original Note:
Today's Communication / Plan
-
Awaiting patient decision regarding CABG versus high risk PCI versus medical therapy
Impression / Plan
-
Assess:
Presentation with CP
Unstable angina/non-STEMI with peak trop 0.1
Hypertension
Hyperlipidemia
History of CAD status post LAD/RCA stenting 2006/inferior wall [place]
Crohn's disease
Diverticulitis
Orthostasis
Paroxysmal atrial fibrillation declining anticoagulation
Gilbert's disease
Echo 04/26: EF 55 to 60%, mild AI, mildly dilated aortic root.
ECHO 07/19/2024: EF 55 to 60%, mild concentric LVH, mild MR, trace TR, PAP 15 to 20 mmHg, no significant change compared to prior
Plan:
He presented with chest pain and ruled in for NSTEMI with peak troponin of 0.1. He underwent cardiac catheterization 07/18/2024 with significant multivessel coronary disease involving the distal left main extending into LAD and circumflex as well as
mid RCA
-CT surgery and interventional cardiology discussed with patient and family yesterday and reviewed risks versus benefits of CABG versus PCI versus medical therapy. Awaiting patient decision. Preop work up ongoing
-Echo 07/19/2024 as above, stable compared to prior
-Continue IV heparin, aspirin, Toprol. holding off on plavix for now while evaluation ongoing
-LDL 37. continue lipitor
-He remains in sinus rhythm on review of tele overnight. He has had some paroxysmal atrial fibrillation in the past but has declined full anticoagulation. He has a history of Crohn's disease.
-d/w nursing
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
Subjective
Date of Service: July 20, 2024
No issues overnight
Objective
Labs:
07/19/24 03:13
07/20/24 04:10
Labs
Hgb 13.4 g/dL (13.0-18.0) 07/19/24 03:13
Hct 39.1 % (39.0-52.0) 07/19/24 03:13
Plt Count 188 10^3/uL (130-400) 07/19/24 03:13
PT 13.6 Sec (11.4-14.6) 07/17/24 17:18
INR 1.01 07/17/24 17:18
APTT 98.8 Sec (23.4-35.0) H 07/20/24 04:10
Sodium 135 mmol/L (135-145) 07/20/24 04:10
Potassium 4.3 mmol/L (3.5-5.1) 07/20/24 04:10
BUN 25 mg/dl (9-20) H 07/20/24 04:10
Creatinine 0.9 mg/dL (0.7-1.3) 07/20/24 04:10
Glucose 97 mg/dl (70-99) 07/20/24 04:10
Troponins
07/17/24 07/17/24 07/18/24
15:16 17:18 15:07
Troponin I 0.105 H* 0.111 H* 0.068 H*
07/18/24
22:00
Troponin I Cancelled
Vital Signs and I&O:
Vital Signs
Temp Pulse Resp BP Pulse Ox
98.1 F 54 20 107/66 98
07/20/24 07:06 07/20/24 07:30 07/20/24 07:06 07/20/24 07:08 07/20/24 07:59
Vital Signs
Temp Pulse Resp BP Pulse Ox
98.1 F 54 20 107/66 98
07/20/24 07:06 07/20/24 07:30 07/20/24 07:06 07/20/24 07:08 07/20/24 07:59
Intake & Output
07/18/24 07/19/24 07/20/24 07/21/24
07:59 07:59 07:59 07:59
Intake Total 360 / 360 240 / 240
Balance 360 / 360 240 / 240
Physical Exam
Physical Exam
Ambulatory to stretcher without difficulty, no audible wheezes, sinus rhythm on telemetry, no edema
[2024-07-20] MEDS: VITAMIN B-12 1000 MCG PO (10:39)
[2024-07-20] MEDS: FLOMAX 0.4 MG PO ×2 (10:39→20:10)
[2024-07-20] MEDS: TOPROL XL 25 MG PO (10:39)
[2024-07-20] MEDS: LOW STRENGTH ASPIRIN 81 MG PO (10:40)
--- NOTE | 2024-07-20 11:59 | CM ---
Addendum entered by Jennifer Perrin RN 07/20/24 13:47:
Patient is now undecided. I gave the Cardiac Surgery Book to the patient and son. I reviewed preoperative and postoperative teaching, along with showering instructions. Patient is agreeable to a visit by CT Transitional RN. If patient decided on
CABG plan will be to return home with CT Transitional RN.
Original Note:
Chart reviewed. Patient is independent of ADLS, lives with his significant other in a [address] [facility], [address] [place], [address]. Son lives across the street. Patient decided on a CABG. Timing to be decided. Plan is for the patient to return home with CT Transitional
RN vs SNF. CM to follow
[2024-07-20] MEDS: PROSCAR PO (12:28)
[2024-07-20] MEDS: HEPARIN 25000 UNITS/250 ML IV (13:48)
--- NOTE | 2024-07-20 16:21 | W.PN.HOSP.TC ---
Today's Communication/Plan
-
Assessment / Plan
Assessment / Plan
Gen-AAOx3, NAD
HEENT-NC, AT, anicteric, clear oral mm
Neck-supple
CV-reg, no M, +S1/S2
Lungs-clear B/L
Abd-soft, NT, ND
Musculoskeletal-no edema, no deformity
Skin-warm and dry
Neuro-grossly non-focal
Psych-calm, cooperative
Mr. Ramos is a 84-year-old male with a medical history of Crohn's disease (remote history of partial bowel resection 1971), CAD (prior stents x3 in 2007), mixed hyperlipidemia, and prostate enlargement who presented from home with chest pain. He
experienced intermittent chest pain during the past 2 weeks prior to arrival, previously when shoveling snow a week ago at which time his chest discomfort was associated with shortness of breath. On the day of admission, his chest pain began while
at rest and was associated with palpitations. In the ED, he was hemodynamically stable. Lab work revealed elevated troponin of 0.111. EKG showed no acute ischemic changes. He was given sublingual nitro with relief of his chest discomfort. He
was also loaded with aspirin and started on anticoagulation with IV heparin drip. He was admitted for further evaluation and management of NSTEMI.
NSTEMI:
-Status post coronary angiography 07/18 with findings of multivessel disease not amenable to stenting
-Patient and medical teams have discussed his treatment options extensively, current plan is to proceed with CABG which will likely take place early next week
-Continue anticoagulation with IV heparin drip
-Continue sublingual nitro as needed
-Continue daily aspirin and statin therapy
-Telemetry monitoring, EKG as needed for chest pain
Prostate enlargement:
-Continue finasteride and tamsulosin
-No evidence of bladder outlet obstruction, renal function within normal limits
CODE STATUS: Patient confirmed full code (of note, patient does not want to be kept alive on life support for prolonged period of time but is okay with chest compressions and intubation emergently)
Anticipated Discharge: > 48 hours
Subjective/Interval History
-
Date of Service: July 20, 2024
Mr. Ramos was seen and examined at bedside. He has made a decision to proceed with CABG. He has no complaints at this time and is chest free.
Objective Data
-
Labs:
Laboratory Results
07/20/24
04:10
APTT 98.8 H
Sodium 135
Potassium 4.3
Chloride 104
Carbon Dioxide 23
BUN 25 H
Creatinine 0.9
Glucose 97
Calcium 8.8
Vital Signs:
Vital Signs
Temp Pulse Resp BP Pulse Ox
97.7 F 92 20 149/62 97
07/20/24 15:10 07/20/24 11:30 07/20/24 15:10 07/20/24 11:13 07/20/24 15:10
I&O
07/19/24 07/20/24 07/21/24
06:59 06:59 06:59
Intake Total 240 / 240 560 / 560
Balance 240 / 240 560 / 560
Review of Systems
-
History Source: Patient
All other systems: Reviewed and negative
Physical Exam
-
General: No Apparent Distress
--- NOTE | 2024-07-20 16:34 | W.PN.UPDATE ---
Update Note
Progress Note Update
Procedure Type:�Isolated CABG
Perioperative Outcome Estimate %
Operative Mortality 2.92%
Morbidity & Mortality 9.2%
Stroke 0.606%
Renal Failure 1.51%
Reoperation 3.22%
Prolonged Ventilation 4.79%
Deep Sternal Wound Infection 0.076%
Long Hospital Stay (>14 days) 7.41%
Short Hospital Stay (<6 days)* 22.5%
Clinical Summary
Planned Surgery: Isolated CABG, Urgent, First cardiovascular surgery
Demographics: 84 year old, White, male, 69.5kg, 168cm, BMI: 24.6 kg/m�
Lab Values: Creatinine: 0.9 mg/dL, Hematocrit: 13.4%, WBC Count: 6.7 10�/�L, Platelet Count: 830673 cells/�L
Substance Abuse: Former smoker, Alcohol use: 2-7 drinks/week
Risk Factors / Comorbidities: Hypertension
Pulmonary RF: Severity Unknown CLD
Cardiac Status: NYHA Class II, Ejection Fraction = 55%
Coronary Artery Disease: 3 vessels diseased, Left Main Stenosis >=50%, Unstable Angina, UT: > 21 Days
Valve Disease: Mild AR, Trivial/Trace MR, Trivial/Trace TR
Arrhythmia: Remote A-fib, Remote V. Tach / V. Fib
Prev. Cardiac Interv: Previous PCI: Not during this episode of care
--- NOTE | 2024-07-20 18:42 | PTCARENOTE ---
Pt denies any discomfort, up walking in halls without problem. Pt had pre op testing completed. Heparin infusion is at a therapeutic level. Telemetry shows sinus rhythm. Pt states he will have bypass surgery.
[2024-07-20] MEDS: QUESTRAN 4 GRAM PO (22:11)
[2024-07-21] VITALS (7 sets, daily range): BP systolic 131–175; BP diastolic 58–88
[2024-07-21] MEDS: PROSCAR 5 MG PO ×2 (02:17→22:51)
[2024-07-21] MEDS: LIPITOR 40 MG PO ×2 (02:17→22:51)
[2024-07-21 03:01] LABS: APTT 138.6 Sec (23.4-35.0)
--- NOTE | 2024-07-21 04:08 | PTCARENOTE ---
Tele remains Sinus ernesto-NSR, HR in the 50-60's at rest. Patient denies any pain or SOB. Right radial dressing C/D/I, pt aware of activity restrictions. IV heparin gtt infusing at 9ml/hr. Next ptt due at approx 10:07. POC ongoing, call boland within
reach.
[2024-07-21] MEDS: TOPROL XL 25 MG PO (09:22)
[2024-07-21] MEDS: LOW STRENGTH ASPIRIN 81 MG PO (09:22)
[2024-07-21] MEDS: FLOMAX 0.4 MG PO ×2 (09:22→20:10)
--- NOTE | 2024-07-21 09:22 | W.PN.CARDCBS ---
Addendum entered and electronically signed by Cristofer Goldberg MD 07/21/24 11:31:
Patient seen, interviewed and examined by me.
He tells me he has had no chest pain shortness of breath palpitations or dizziness overnight and into today.
Well-appearing, no acute distress
Regular rate and rhythm with normal S1 and S2, no S3 no S4. There is a grade 1/6 apical holosystolic murmur and no rubs. PMI is normally placed.
Lungs are clear to auscultation bilaterally without wheezes rales or rhonchi.
Abdomen soft nontender nondistended with normoactive bowel sounds
Extremities show trace pretibial edema bilaterally no clubbing or cyanosis.
Neurologic exam is grossly nonfocal.
Assessment and plan
Known coronary artery disease with non-ST segment elevation myocardial infarction, acute and unstable angina.
cardiac catheterization 07/18/2024 with significant multivessel coronary disease involving the distal left main extending into LAD and circumflex as well as mid RCA
Evaluated by CT surgery and is planned for coronary artery bypass grafting surgery on July 24.
Maintain heparin drip, aspirin, statin, beta-chantale (Plavix on hold )
Original Note:
Today's Communication / Plan
-
Awaiting high risk CABG 07/24/2024
Continues heparin drip, aspirin, statin, beta-chantale
Impression / Plan
-
Assess:
Presentation with CP
Unstable angina/non-STEMI with peak trop 0.1
Hypertension
Hyperlipidemia
History of CAD status post LAD/RCA stenting 2006/inferior wall [place]
Crohn's disease
Diverticulitis
Orthostasis
Paroxysmal atrial fibrillation declining anticoagulation
Gilbert's disease
Echo 04/26: EF 55 to 60%, mild AI, mildly dilated aortic root.
ECHO 07/19/2024: EF 55 to 60%, mild concentric LVH, mild MR, trace TR, PAP 15 to 20 mmHg, no significant change compared to prior
Plan:
He presented with chest pain and ruled in for NSTEMI with peak troponin of 0.1. He underwent cardiac catheterization 07/18/2024 with significant multivessel coronary disease involving the distal left main extending into LAD and circumflex as well as
mid RCA
-CT surgery and interventional cardiology discussed with patient and family yesterday and reviewed risks versus benefits of CABG versus PCI versus medical therapy. Plan for high risk CABG on 07/24/[address] Alcantar
-Echo 07/19/2024 as above, stable compared to prior
-Continue IV heparin, aspirin, Toprol. Plavix on hold
-LDL 37. continue lipitor
-He remains in sinus rhythm on review of tele overnight, HRs 60-70s.. He has had some paroxysmal atrial fibrillation in the past but has declined full anticoagulation. He has a history of Crohn's disease.
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
Subjective
Date of Service: July 21, 2024
Plan for high risk CABG on 07/24/2024
No chest pain, shortness of breath
In sinus rhythm
Objective
Labs:
07/19/24 03:13
07/20/24 04:10
Labs
Hgb 13.4 g/dL (13.0-18.0) 07/19/24 03:13
Hct 39.1 % (39.0-52.0) 07/19/24 03:13
Plt Count 188 10^3/uL (130-400) 07/19/24 03:13
PT 13.6 Sec (11.4-14.6) 07/17/24 17:18
INR 1.01 07/17/24 17:18
APTT 138.6 Sec (23.4-35.0) H 07/21/24 02:37
Sodium 135 mmol/L (135-145) 07/20/24 04:10
Potassium 4.3 mmol/L (3.5-5.1) 07/20/24 04:10
BUN 25 mg/dl (9-20) H 07/20/24 04:10
Creatinine 0.9 mg/dL (0.7-1.3) 07/20/24 04:10
Glucose 97 mg/dl (70-99) 07/20/24 04:10
Troponins
07/18/24 07/18/24
15:07 22:00
Troponin I 0.068 H* Cancelled
Vital Signs and I&O:
Vital Signs
Temp Pulse Resp BP Pulse Ox
97.7 F 55 18 131/83 95
07/21/24 07:33 07/21/24 08:00 07/21/24 07:33 07/21/24 07:35 07/21/24 07:35
Vital Signs
Temp Pulse Resp BP Pulse Ox
97.7 F 55 18 131/83 95
07/21/24 07:33 07/21/24 08:00 07/21/24 07:33 07/21/24 07:35 07/21/24 07:35
Intake & Output
07/19/24 07/20/24 07/21/24 07/22/24
06:59 06:59 06:59 06:59
Intake Total 240 / 240 915 / 915
Output Total 950 / 950
Balance 240 / 240 -35 / -35
Physical Exam
Physical Exam
GEN: No distress, awake, Ox3
HEENT: supple, anicteric, mmm
LUNGS: CTA, no wheezes/rales
CV: Reg, S1/S2, no murmur
ABD: soft, BS+, NT/ND
EXT: No edema
NEURO: Gross non-focal
SKIN: No rash
[2024-07-21] MEDS: VITAMIN B-12 1000 MCG PO (09:23)
--- NOTE | 2024-07-21 09:38 | PTCARENOTE ---
Received patient this morning oob ambulating in his room after using the bathroom. IV heparin infusing at 900 units/hr. Dressing removed from the right radial cath site. No bleeding or hematoma noted, pulse palpable. Patient ordering breakfast.
[2024-07-21 10:27] LABS: APTT 68.8 Sec (23.4-35.0)
[2024-07-21] MEDS: HEPARIN 25000 UNITS/250 ML IV (13:33)
--- NOTE | 2024-07-21 16:50 | W.PN.HOSP.TC ---
Today's Communication/Plan
-
Assessment / Plan
Assessment / Plan
Gen-AAOx3, NAD
HEENT-NC, AT, anicteric, clear oral mm
Neck-supple
CV-reg, no M, +S1/S2
Lungs-clear B/L
Abd-soft, NT, ND
Musculoskeletal-no edema, no deformity
Skin-warm and dry
Neuro-grossly non-focal
Psych-calm, cooperative
Mr. Ramos is a 84-year-old male with a medical history of Crohn's disease (remote history of partial bowel resection 1971), CAD (prior stents x3 in 2007), mixed hyperlipidemia, and prostate enlargement who presented from home with chest pain. He
experienced intermittent chest pain during the past 2 weeks prior to arrival, previously when shoveling snow a week ago at which time his chest discomfort was associated with shortness of breath. On the day of admission, his chest pain began while
at rest and was associated with palpitations. In the ED, he was hemodynamically stable. Lab work revealed elevated troponin of 0.111. EKG showed no acute ischemic changes. He was given sublingual nitro with relief of his chest discomfort. He
was also loaded with aspirin and started on anticoagulation with IV heparin drip. He was admitted for further evaluation and management of NSTEMI.
NSTEMI:
-Status post coronary angiography 07/18 with findings of multivessel disease not amenable to stenting
-Patient and medical teams have discussed his treatment options extensively, current plan is to proceed with CABG which will likely take place early next week
-Continue anticoagulation with IV heparin drip
-Continue sublingual nitro as needed
-Continue daily aspirin and statin therapy
-Telemetry monitoring, EKG as needed for chest pain
Prostate enlargement:
-Continue finasteride and tamsulosin
-No evidence of bladder outlet obstruction, renal function within normal limits
CODE STATUS: Patient confirmed full code (of note, patient does not want to be kept alive on life support for prolonged period of time but is okay with chest compressions and intubation emergently)
Anticipated Discharge: > 48 hours
Subjective/Interval History
-
Date of Service: July 21, 2024
Mr. Ramos was seen and examined at bedside this morning. No acute distress. Has decided to proceed with CABG. Plan tentatively for early this week.
Objective Data
-
Labs:
Laboratory Results
07/21/24 07/21/24
10:08 16:40
APTT 68.8 H Pending
Vital Signs:
Vital Signs
Temp Pulse Resp BP Pulse Ox
97.5 F 68 16 146/74 97
07/21/24 15:30 07/21/24 16:00 07/21/24 15:30 07/21/24 15:23 07/21/24 15:30
I&O
07/20/24 07/21/24 07/22/24
06:59 06:59 06:59
Intake Total 240 / 240 915 / 915 240 / 240
Output Total 950 / 950
Balance 240 / 240 -35 / -35 240 / 240
Review of Systems
-
History Source: Patient
All other systems: Reviewed and negative
Physical Exam
-
General: No Apparent Distress
[2024-07-21 17:37] LABS: APTT 71.5 Sec (23.4-35.0)
--- NOTE | 2024-07-21 18:27 | W.PN.UPDATE ---
Update Note
Progress Note Update
Met with patient this morning and discussed that his tentative surgery date will be July [address] Alcantar. Type and screen ordered for Tuesday and consent was obtained. Anesthesia consult pending.
[2024-07-21] MEDS: QUESTRAN 4 GRAM PO (23:51)
[2024-07-22 00:24] LABS: APTT 94.7 Sec (23.4-35.0)
[2024-07-22 03:57] VITALS: BP 127/56
--- NOTE | 2024-07-22 05:03 | PTCARENOTE ---
Patient remains CP free. VSS, Tele monitor shows NSR-Sinus Nikos, HR in the 50-60's at rest. IV Heparin gtt infusing, next ptt level due at 06:05. Right radial site WILL, no hematoma noted. POC ongoing.
[2024-07-22 06:35] LABS: APTT 116.1 Sec (23.4-35.0)
[2024-07-22 07:16] VITALS: BP 122/57
--- NOTE | 2024-07-22 07:48 | W.PN.CARDCBS ---
Today's Communication / Plan
-
Overall stable with no recurrent angina on intravenous heparin and awaiting coronary artery bypass grafting surgery on Tuesday after adequate Plavix washout.
Impression / Plan
-
Assess:
Presentation with CP
Unstable angina/non-STEMI with peak trop 0.1
Hypertension
Hyperlipidemia
History of CAD status post LAD/RCA stenting 2006/inferior wall [place]
Crohn's disease
Diverticulitis
Orthostasis
Paroxysmal atrial fibrillation declining anticoagulation
Gilbert's disease
Echo 04/26: EF 55 to 60%, mild AI, mildly dilated aortic root.
ECHO 07/19/2024: EF 55 to 60%, mild concentric LVH, mild MR, trace TR, PAP 15 to 20 mmHg, no significant change compared to prior
Assessment and plan
NSTEMI
Known coronary artery disease with non-ST segment elevation myocardial infarction, acute and unstable angina.
cardiac catheterization 07/18/2024 with significant multivessel coronary disease involving the distal left main extending into LAD and circumflex as well as mid RCA
Evaluated by CT surgery and is planned for coronary artery bypass grafting surgery on July 24 (Plavix washout).
Maintain heparin drip, aspirin, statin, beta-chantale (Plavix on hold )
Maintain Toprol-XL 25 mg daily
Maintain aspirin 81 mg daily
Maintain atorvastatin 40 mg daily
He has h/o paroxysmal atrial fibrillation in the past but has declined full anticoagulation. He has a history of Crohn's disease.
Consideration for left atrial appendage clipping at time of his bypass surgery
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
Subjective
Date of Service: July 22, 2024
No chest pain shortness of breath palpitations or dizziness
Objective
Labs:
07/19/24 03:13
07/20/24 04:10
Labs
Hgb 13.4 g/dL (13.0-18.0) 07/19/24 03:13
Hct 39.1 % (39.0-52.0) 07/19/24 03:13
Plt Count 188 10^3/uL (130-400) 07/19/24 03:13
PT 13.6 Sec (11.4-14.6) 07/17/24 17:18
INR 1.01 07/17/24 17:18
APTT 116.1 Sec (23.4-35.0) H 07/22/24 06:11
Sodium 135 mmol/L (135-145) 07/20/24 04:10
Potassium 4.3 mmol/L (3.5-5.1) 07/20/24 04:10
BUN 25 mg/dl (9-20) H 07/20/24 04:10
Creatinine 0.9 mg/dL (0.7-1.3) 07/20/24 04:10
Glucose 97 mg/dl (70-99) 07/20/24 04:10
Vital Signs and I&O:
Vital Signs
Temp Pulse Resp BP Pulse Ox
97.8 F 50 20 127/56 97
07/22/24 07:12 07/22/24 06:00 07/22/24 07:12 07/22/24 03:57 07/22/24 07:12
Vital Signs
Temp Pulse Resp BP Pulse Ox
97.8 F 50 20 127/56 97
07/22/24 07:12 07/22/24 06:00 07/22/24 07:12 07/22/24 03:57 07/22/24 07:12
Intake & Output
07/20/24 07/21/24 07/22/24 07/23/24
06:59 06:59 06:59 06:59
Intake Total 240 / 240 915 / 915 612 / 612
Output Total 950 / 950
Balance 240 / 240 -35 / -35 612 / 612
Physical Exam
Physical Exam
Well-appearing, no acute distress
Regular rate and rhythm with normal S1 and S2, no S3 no S4. There is a grade 1/6 apical holosystolic murmur and no rubs. PMI is normally placed.
Lungs are clear to auscultation bilaterally without wheezes rales or rhonchi.
Abdomen soft nontender nondistended with normoactive bowel sounds
Extremities show trace pretibial edema bilaterally no clubbing or cyanosis.
Neurologic exam is grossly nonfocal.
[2024-07-22] MEDS: FLOMAX 0.4 MG PO ×2 (09:42→21:25)
[2024-07-22] MEDS: LOW STRENGTH ASPIRIN 81 MG PO (09:42)
[2024-07-22] MEDS: VITAMIN B-12 1000 MCG PO (09:43)
[2024-07-22] MEDS: TOPROL XL 25 MG PO (09:43)
--- NOTE | 2024-07-22 10:39 | PTCARENOTE ---
Received patient this morning resting in bed, offers no complaints. IV heparin infusing at 1000 units/hr, still not at a therapeutic level x 2. Will repeat PTT at 1250 and check CBC as per protocol.
[2024-07-22 11:25] VITALS: BP 157/65
--- NOTE | 2024-07-22 11:39 | PTCARENOTE ---
Assumed care of patient at aprox 1100. Pt in bed. Heparin infusing at 1000 units per hour. Next PTT due at 1250. Assisted to bathroom to do some hygiene. Son visiting. Pt to order lunch now and has no complaints at this time.
[2024-07-22] MEDS: HEPARIN 25000 UNITS/250 ML IV (12:00)
[2024-07-22 13:00] LABS: % Basophils 0.7 % (0-2); % Eosinophils 1.9 % (0-6); % Immature Granulocytes 0.4 % (0-0.5); % Lymphocytes 19.5 % (20.5-51.1); % Monocytes 10.4 % (1.7-9.3); % Neutrophils 67.1 % (42.2-75.2); Absolute Eosinophils 0.1 10^3/uL (0-0.7); Absolute Lymphocytes 1.1 10^3/uL (1.2-3.4); Absolute Monocytes 0.6 10^3/uL (0.1-0.6); Absolute Neutrophils 3.8 10^3/uL (1.4-6.5); Hematocrit 39.2 % (39.0-52.0); Hemoglobin 13.7 g/dL (13.0-18.0); Mean Corp Hgb Conc. 34.9 g/dL (33.0-37.0); Mean Corpuscular Hgb 30.7 pg (27.0-31.0); Mean Corpuscular Volume 87.9 fL (80.0-94.0); Mean Platelet Volume 9.7 fL (7.4-10.4); Nucleated Red Blood Cells % 0 % (-); Platelet Count 193 10^3/uL (130-400); Red Blood Cell Count 4.46 10^6/uL (4.70-6.10); Red Cell Dist. Width 12.7 % (11.5-14.5); White Blood Cell Count 5.7 10^3/uL (4.8-10.8)
[2024-07-22 13:13] LABS: APTT 79.7 Sec (23.4-35.0)
--- NOTE | 2024-07-22 14:31 | W.PN.HOSP.TC ---
Today's Communication/Plan
-
Planning CABG this week, potentially including left atrial appendage clipping
Assessment / Plan
Assessment / Plan
Gen-AAOx3, NAD
HEENT-NC, AT, anicteric, clear oral mm
Neck-supple
CV-reg, no M, +S1/S2
Lungs-clear B/L
Abd-soft, NT, ND
Musculoskeletal-no edema, no deformity
Skin-warm and dry
Neuro-grossly non-focal
Psych-calm, cooperative
Mr. Ramos is a 84-year-old male with a medical history of Crohn's disease (remote history of partial bowel resection 1971), CAD (prior stents x3 in 2007), mixed hyperlipidemia, and prostate enlargement who presented from home with chest pain. He
experienced intermittent chest pain during the past 2 weeks prior to arrival, previously when shoveling snow a week ago at which time his chest discomfort was associated with shortness of breath. On the day of admission, his chest pain began while
at rest and was associated with palpitations. In the ED, he was hemodynamically stable. Lab work revealed elevated troponin of 0.111. EKG showed no acute ischemic changes. He was given sublingual nitro with relief of his chest discomfort. He
was also loaded with aspirin and started on anticoagulation with IV heparin drip. He was admitted for further evaluation and management of NSTEMI.
NSTEMI:
-Status post coronary angiography 07/18 with findings of multivessel disease not amenable to stenting
-Patient and medical teams have discussed his treatment options extensively, current plan is to proceed with CABG which will likely take place early next week
-Continue anticoagulation with IV heparin drip
-Continue sublingual nitro as needed
-Continue daily aspirin and statin therapy
-Telemetry monitoring, EKG as needed for chest pain
Prostate enlargement:
-Continue finasteride and tamsulosin
-No evidence of bladder outlet obstruction, renal function within normal limits
CODE STATUS: Patient confirmed full code (of note, patient does not want to be kept alive on life support for prolonged period of time but is okay with chest compressions and intubation emergently)
Anticipated Discharge: > 48 hours
Subjective/Interval History
-
Date of Service: July 22, 2024
Mr. Ramos was seen and examined at bedside this morning. No acute events overnight. Comfortable. Continuing preoperative workup for planned CABG this week.
Objective Data
-
Labs:
Laboratory Results
07/22/24 07/22/24 07/22/24
06:11 12:50 17:50
WBC 5.7
Hgb 13.7
Hct 39.2
Plt Count 193
APTT 116.1 H 79.7 H Cancelled
07/22/24
18:50
WBC
Hgb
Hct
Plt Count
APTT Pending
Vital Signs:
Vital Signs
Temp Pulse Resp BP Pulse Ox
97.6 F 60 20 157/65 98
07/22/24 11:22 07/22/24 11:25 07/22/24 11:22 07/22/24 11:25 07/22/24 11:22
I&O
07/21/24 07/22/24 07/23/24
06:59 06:59 06:59
Intake Total 915 / 915 612 / 612
Output Total 950 / 950
Balance -35 / -35 612 / 612
Review of Systems
-
History Source: Patient
All other systems: Reviewed and negative
Physical Exam
-
General: No Apparent Distress
[2024-07-22 14:46] VITALS: BP 118/52
--- NOTE | 2024-07-22 16:34 | PTCARENOTE ---
at 1250 PTT therapeutic at 79.7. Next PTT due at 1850.
[2024-07-22 19:16] LABS: APTT 65.3 Sec (23.4-35.0)
[2024-07-22 19:51] VITALS: BP 146/66
--- NOTE | 2024-07-22 19:59 | PTCARENOTE ---
Pt PTT result is 65.3 and heparin GTT increased to 1100 units per hour. Next PTT due at 0130.
[2024-07-22] MEDS: LIPITOR 40 MG PO (21:25)
[2024-07-22] MEDS: PROSCAR 5 MG PO (21:25)
[2024-07-22] MEDS: QUESTRAN 4 GRAM PO (22:27)
[2024-07-22 23:48] VITALS: BP 136/68
[2024-07-23] VITALS (7 sets, daily range): BP systolic 120–153; BP diastolic 54–70; BMI 23.8
[2024-07-23 01:54] LABS: APTT 100.3 Sec (23.4-35.0)
--- NOTE | 2024-07-23 06:01 | W.PN.CT ---
Today's Communication / Plan
-
Plan:
-Cont. current medical management per primary team
-Cont. current meds (ASA, Heparin gtt, Lipitor, Toprol XL, Flomax, Finasteride)
-Avoid SERA-I/ARBs in preparation for OR
-Ongoing preop workup
-For CABG/JUAN clip by Dr. Alcantar tomorrow 07/24/24
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
-Will cont. to closely monitor
Assessment / Plan
-
Assessment:
-Severe 3v CAD/80-85% distal LM
-[place]
-NSTEMI (peak trop 0.111)
-Hx SC S/P with Cypher RORY to LAD and RCA, 2006
-LVEF 55-60%
-Mild MR
-HTN
-HLD
-Prediabetes (A1C 6.0)
-Paroxysmal atrial fibrillation (declining anticoagulation)
-Crohn's disease
-Gilbert's syndrome
-B12 deficiency
-Diverticulitis
-Hx of orthostasis (likely from Flomax/Finasteride)
-S/P Appendectomy, 1971
-S/P Bowel resection, 1971
-S/P Cholecystectomy
Discussed patient care with: Cardiology, Nursing, Respiratory Therapy, Pharmacy and Care Team
Subjective
-
Date of Service: July 23, 2024
No issues overnight. Denies CP/SOB
Objective Data
-
Lab Results
07/22/24 12:50
07/20/24 04:10
PT 13.6 Sec (11.4-14.6) 07/17/24 17:18
INR 1.01 07/17/24 17:18
APTT 100.3 Sec (23.4-35.0) H 07/23/24 01:33
Vital Signs
Vital Signs
Temp Pulse Resp BP Pulse Ox
97.7 F 64 20 140/63 97
07/23/24 04:27 07/23/24 04:27 07/23/24 04:27 07/23/24 04:27 07/23/24 04:27
CT Intake/Output/Weight
07/22/24 07/22/24 07/23/24
06:59 18:59 06:59
Intake Total 372 / 612 560 / 560
Output Total 475 / 475
Balance 372 / 612 560 / 85 -475 / 85
SaO2: 97 (RA)
Physical Exam
-
General: Awake, Oriented and AOx3
Cardiovascular: Irregular rate & rhythm, No Murmurs and No Rub
Respiratory: Clear
Extremities: No Edema
Data Reviewed
-
Lab Results: Results Reviewed
Medications: Active Meds Reviewed
Chest X-Ray: Report Reviewed and Image Reviewed
ECG: Report Reviewed and Image Reviewed
--- NOTE | 2024-07-23 07:09 | W.PN.HOSP.TC ---
Today's Communication/Plan
-
c/w IV heparin gtt
Plan for surgery 07/24
Assessment / Plan
Assessment / Plan
Gen-AAOx3, NAD
HEENT-NC, AT, anicteric, clear oral mm
Neck-supple
CV-reg, no M, +S1/S2
Lungs-clear B/L
Abd-soft, NT, ND
Musculoskeletal-no edema, no deformity
Skin-warm and dry
Neuro-grossly non-focal
Psych-calm, cooperative
Mr. Ramos is a 84-year-old male with a medical history of Crohn's disease (remote history of partial bowel resection 1971), CAD (prior stents x3 in 2007), mixed hyperlipidemia, and prostate enlargement who presented from home with chest pain. He
experienced intermittent chest pain during the past 2 weeks prior to arrival, previously when shoveling snow a week ago at which time his chest discomfort was associated with shortness of breath. On the day of admission, his chest pain began while
at rest and was associated with palpitations. In the ED, he was hemodynamically stable. Lab work revealed elevated troponin of 0.111. EKG showed no acute ischemic changes. He was given sublingual nitro with relief of his chest discomfort. He
was also loaded with aspirin and started on anticoagulation with IV heparin drip. He was admitted for further evaluation and management of NSTEMI.
NSTEMI:
-Status post coronary angiography 07/18 with findings of multivessel disease not amenable to stenting
-Patient and medical teams have discussed his treatment options extensively, current plan is to proceed with CABG which will likely take place early next week
-Continue anticoagulation with IV heparin drip
-Continue sublingual nitro as needed
-Continue daily aspirin and statin therapy
-Telemetry monitoring, EKG as needed for chest pain
Per CT: CABG/JUAN clip by Dr. Alcantar tomorrow 07/24/24. Avoid SERA pre-op
Prostate enlargement:
-Continue finasteride and tamsulosin
-No evidence of bladder outlet obstruction, renal function within normal limits
CODE STATUS: Patient confirmed full code (of note, patient does not want to be kept alive on life support for prolonged period of time but is okay with chest compressions and intubation emergently)
Total time spent to see the patient, examine the patient, review data and lab results, discuss treatment plan with patient and nursing staff around 55 minutes
Anticipated Discharge: > 48 hours
Subjective/Interval History
-
Date of Service: July 23, 2024
Objective Data
-
Labs:
Laboratory Results
07/22/24 07/23/24 07/23/24
18:52 01:33 08:00
WBC Pending
Hgb Pending
Hct Pending
Plt Count Pending
APTT 65.3 H 100.3 H Pending
Sodium Pending
Potassium Pending
Chloride Pending
Carbon Dioxide Pending
BUN Pending
Creatinine Pending
Glucose Pending
Calcium Pending
Vital Signs:
Vital Signs
Temp Pulse Resp BP Pulse Ox
97.7 F 64 20 140/63 97
07/23/24 04:27 07/23/24 04:27 07/23/24 04:27 07/23/24 04:27 07/23/24 06:42
I&O
07/22/24 07/23/24 07/24/24
06:59 06:59 06:59
Intake Total 612 / 612 560 / 560
Output Total 475 / 475
Balance 612 / 612 85 / 85
[2024-07-23] MEDS: LOW STRENGTH ASPIRIN 81 MG PO (08:09)
[2024-07-23] MEDS: FLOMAX 0.4 MG PO ×2 (08:09→20:42)
[2024-07-23] MEDS: VITAMIN B-12 1000 MCG PO (08:09)
[2024-07-23] MEDS: VITAMIN C 250 MG PO (08:09)
[2024-07-23] MEDS: TOPROL XL 25 MG PO (08:09)
[2024-07-23 08:32] LABS: Hematocrit 39.4 % (39.0-52.0); Hemoglobin 13.5 g/dL (13.0-18.0); Mean Corp Hgb Conc. 34.3 g/dL (33.0-37.0); Mean Corpuscular Hgb 30.1 pg (27.0-31.0); Mean Corpuscular Volume 87.9 fL (80.0-94.0); Mean Platelet Volume 9.8 fL (7.4-10.4); Platelet Count 184 10^3/uL (130-400); Red Blood Cell Count 4.48 10^6/uL (4.70-6.10); Red Cell Dist. Width 12.9 % (11.5-14.5); White Blood Cell Count 5.7 10^3/uL (4.8-10.8)
[2024-07-23 08:43] LABS: APTT 106.1 Sec (23.4-35.0)
[2024-07-23 08:54] LABS: Blood Urea Nitrogen 22 mg/dl (9-20); Carbon Dioxide 24 mmol/L (22-30); Chloride 102 mmol/L (98-107); Estimated Creatinine Clearance 49 ml/min; Glucose 123 mg/dl (70-99); Magnesium 2.1 mg/dl (1.6-2.3); Potassium 4.5 mmol/L (3.5-5.1); Sodium 135 mmol/L (135-145); eGFR > 60.00
[2024-07-23] MEDS: HEPARIN 25000 UNITS/250 ML IV (09:54)
--- NOTE | 2024-07-23 10:21 | PTCARENOTE ---
Heparin gtt infusing at 11 ml/hr and is therapeutic per protocol. Pt has no complaints pain/discomfort at this time. Plan of care discussed w/ pt. Verbalizes understanding. Assessment completed as documented. Tele- SR. Currently sitting on side of
bed eating breakfast. Call krystian w/in reach.
--- NOTE | 2024-07-23 10:26 | W.PN.CARDCBS ---
Addendum entered and electronically signed by Kole Rodriguez DO 07/23/24 12:28:
I saw and examined the patient.
The Solderer Assembler's note was reviewed and I agree with the note.
Comment:
Plan:
Cont IV heparin
Cont Plavix wash out.
Cont ASA, beta chantale and statin
For CABG Jul 24 2024.
EF is preserved
He appears euvolemic.
Discussed with family at bedside.
Original Note:
Today's Communication / Plan
-
awaiting CABG 07/24/2024
Impression / Plan
-
Assess:
Presentation with CP
Unstable angina/non-STEMI with peak trop 0.1
Hypertension
Hyperlipidemia
History of CAD status post LAD/RCA stenting 2006/inferior wall [place]
Crohn's disease
Diverticulitis
Orthostasis
Paroxysmal atrial fibrillation declining anticoagulation
Gilbert's disease
Echo 04/26: EF 55 to 60%, mild AI, mildly dilated aortic root.
ECHO 07/19/2024: EF 55 to 60%, mild concentric LVH, mild MR, trace TR, PAP 15 to 20 mmHg, no significant change compared to prior
telemetry personally reviewed: SB/NSR 50s-60s, drops to 40s with sleep
Assessment and plan
NSTEMI
Known coronary artery disease with non-ST segment elevation myocardial infarction, acute and unstable angina.
cardiac catheterization 07/18/2024 with significant multivessel coronary disease involving the distal left main extending into LAD and circumflex as well as mid RCA
Evaluated by CT surgery and is planned for coronary artery bypass grafting surgery on July 24 (Plavix washout).
Maintain heparin drip, aspirin, statin, beta-chantale (Plavix on hold )
Maintain Toprol-XL 25 mg daily
Maintain aspirin 81 mg daily
Maintain atorvastatin 40 mg daily
He has h/o paroxysmal atrial fibrillation in the past but has declined full anticoagulation. He has a history of Crohn's disease.
Consideration for left atrial appendage clipping at time of his bypass surgery
Progress Note - Immunochemist
Subjective
Date of Service: July 23, 2024
feels good, no chest pain
CABG scheduled for tomorrow with Dr Alcantar
in NSR
Objective
Labs:
07/23/24 08:18
07/23/24 08:18
Labs
Hgb 13.5 g/dL (13.0-18.0) 07/23/24 08:18
Hct 39.4 % (39.0-52.0) 07/23/24 08:18
Plt Count 184 10^3/uL (130-400) 07/23/24 08:18
PT 13.6 Sec (11.4-14.6) 07/17/24 17:18
INR 1.01 07/17/24 17:18
APTT 106.1 Sec (23.4-35.0) H 07/23/24 08:18
Sodium 135 mmol/L (135-145) 07/23/24 08:18
Potassium 4.5 mmol/L (3.5-5.1) 07/23/24 08:18
BUN 22 mg/dl (9-20) H 07/23/24 08:18
Creatinine 1.0 mg/dL (0.7-1.3) 07/23/24 08:18
Glucose 123 mg/dl (70-99) H 07/23/24 08:18
Vital Signs and I&O:
Vital Signs
Temp Pulse Resp BP Pulse Ox
97.3 F 56 18 120/63 97
07/23/24 07:39 07/23/24 08:00 07/23/24 07:39 07/23/24 07:41 07/23/24 07:41
Vital Signs
Temp Pulse Resp BP Pulse Ox
97.3 F 56 18 120/63 97
07/23/24 07:39 07/23/24 08:00 07/23/24 07:39 07/23/24 07:41 07/23/24 07:41
Intake & Output
07/21/24 07/22/24 07/23/24 07/24/24
06:59 06:59 06:59 06:59
Intake Total 915 / 915 612 / 612 560 / 560
Output Total 950 / 950 475 / 475 100 / 100
Balance -35 / -35 612 / 612 85 / 85 -100 / -100
Physical Exam
Physical Exam
GEN: No distress, awake, Ox3
HEENT: supple, anicteric, mmm
LUNGS: CTA, no wheezes/rales
CV: Reg, S1/S2, no murmur
ABD: soft, BS+, NT/ND
EXT: No edema
NEURO: Gross non-focal
SKIN: No rash
[2024-07-23] MEDS: FERRLECIT 110 MG IV (14:22)
--- NOTE | 2024-07-23 16:36 | CM ---
plan is for CABG tomorrow, cm following
--- NOTE | 2024-07-23 20:30 | PTCARENOTE ---
Assumed care of pt from IVU nurse. Pt to room 2262. Pt AAOx3. Slightly forgetful. Hard of hearing. Pt sinus ernesto to sinus rhythm on the tele monitor. HR 50-60s. BP stable. Palpable pulses throughout. No edema. Pt 97% on RA. Lung sounds audible.
Deep breathing and IS encouraged. Abdomen soft/nontender. +BS. Pt voiding w/o issue. Right radial cath site intact and WILL. PIV x2 C/D/I. Denies pain at this time. Heparin infusing. See worklist for full nursing assessment and interventions. Call
boland within reach.
[2024-07-23] MEDS: PROSCAR 5 MG PO (22:17)
[2024-07-23] MEDS: LIPITOR 40 MG PO (22:17)
[2024-07-23] MEDS: QUESTRAN 4 GRAM PO (22:17)
[2024-07-24] VITALS (21 sets, daily range): BP systolic 95–121; BP diastolic 47–75; BMI 23.8
--- NOTE | 2024-07-24 00:37 | PTCARENOTE ---
Pt clipped and prepped for CVOR tomorrow. Right/left arm BP obtained. CHG bath #1 completed. Pt educated on NPO status starting at midnight. HR remains 50-60. BP stable. Pt 98% on RA. Heparin infusing as ordered. Call boland within reach.
--- NOTE | 2024-07-24 05:23 | PTCARENOTE ---
No acute change in assessment. Pt sinus ernesto to sinus rhythm on the tele monitor. HR 50-60s. BP stable. Pt on RA. POX 97%. Pt given 2nd CHG soap bath and wiped with CHG wipes. Gown and linens changed. VS & weight obtained. PTT drawn and sent.
Heparin infusing. Denies pain at this time. Call boland within reach.
[2024-07-24 05:58] LABS: APTT 178.1 Sec (23.4-35.0)
[2024-07-24] MEDS: LOPRESSOR 12.5 MG PO (06:07)
[2024-07-24] MEDS: PROTONIX 40 MG PO (06:07)
[2024-07-24] MEDS: BACTROBAN 2% OINTMENT 1 APPLIC NASAL ×2 (06:07→22:58)
[2024-07-24] MEDS: MAGNESIUM OXIDE 500 MG PO (06:07)
--- NOTE | 2024-07-24 06:25 | W.CVOR.SURPR ---
CVOR Surgeon Immed Pre Op
-
I have examined this patient prior to performance of the scheduled procedure.
The patient's condition is unchanged from the time of the dictated/written History and
Physical and the patient is able to undergo the scheduled procedure.
CABG + MAZE + JUAN Clip
[2024-07-24 07:32] LABS: ACT+ - POC 98 Seconds (82-134)
[2024-07-24 07:34] LABS: B.E. - POC -1.2 mmol/L; Glucose - POC 115 mg/dl (70-99); HCO3 - POC 23 mmol/L (21-28); Hematocrit - POC 32 % PCV (42-52); Hemodilution- POC No; Hemoglobin Calculated - POC 10.8; Ionized Calcium - POC 1.22 mmol/L (1.15-1.33); Lactate - POC 0.37 mmol/L (0.36-0.75); O2 Saturation %Calculated-POC 99.8 % (94-98); PCO2 - POC 38 mmHg (35-48); PO2 - POC 248 mmHg (83-108); Potassium - POC 4.2 mmol/L (3.5-5.1); Sodium - POC 136 mmol/L (136-145); Specimen Type - POC Arterial
[2024-07-24 09:04] LABS: Urine Albumin Negative (Neg - Trace); Urine Bilirubin Negative (Negative); Urine Character Slightly Cloudy (Clear); Urine Color Straw; Urine Glucose Negative (Negative); Urine Ketone Negative (Negative); Urine Leukocyte Trace (Negative); Urine Nitrite Negative (Negative); Urine Occult Blood Negative (Negative); Urine Urobilinogen Negative (Neg - 1+)
[2024-07-24 09:08] LABS: ACT+ - POC 468 Seconds (82-134)
[2024-07-24 09:18] LABS: Urine Bacteria Few (Negative); Urine Red Blood Cell 0-2 /HPF (0-2); Urine Squamous Cell >30 /LPF (Few)
[2024-07-24 09:42] LABS: ACT+ - POC 699 Seconds (82-134)
[2024-07-24 10:00] LABS: B.E. - POC 0.3 mmol/L; Glucose - POC 204 mg/dl (70-99); HCO3 - POC 24 mmol/L (21-28); Hematocrit - POC 29 % PCV (42-52); Hemodilution- POC Yes; Ionized Calcium - POC 1.09 mmol/L (1.15-1.33); Lactate - POC 0.55 mmol/L (0.36-0.75); O2 Saturation %Calculated-POC 99.9 % (94-98); PCO2 - POC 35 mmHg (35-48); PO2 - POC 273 mmHg (83-108); Potassium - POC 5.6 mmol/L (3.5-5.1); Sodium - POC 134 mmol/L (136-145); Specimen Type - POC Arterial; pH - POC 7.45 (7.35-7.45)
[2024-07-24] MEDS: LOW STRENGTH ASPIRIN PO (10:02)
[2024-07-24] MEDS: FLOMAX PO (10:02)
[2024-07-24 10:03] LABS: ACT+ - POC 596 Seconds (82-134)
[2024-07-24 10:18] LABS: B.E. - POC 1.2 mmol/L; Glucose - POC 193 mg/dl (70-99); HCO3 - POC 25 mmol/L (21-28); Hematocrit - POC 29 % PCV (42-52); Hemodilution- POC Yes; Ionized Calcium - POC 1.12 mmol/L (1.15-1.33); Lactate - POC 0.72 mmol/L (0.36-0.75); O2 Saturation %Calculated-POC 99.8 % (94-98); PCO2 - POC 38 mmHg (35-48); PO2 - POC 234 mmHg (83-108); Potassium - POC 5.8 mmol/L (3.5-5.1); Sodium - POC 134 mmol/L (136-145); Specimen Type - POC Arterial; pH - POC 7.43 (7.35-7.45)
--- NOTE | 2024-07-24 10:20 | W.PN.UPDATE ---
Update Note
Progress Note Update
Addendum
Patient is going for CT surgery and will be under cardiothoracic surgery service.
Hospitalist service will sign off, please feel free to contact hospitalist service if needed
Thank you
End
[2024-07-24 10:24] LABS: ACT+ - POC 615 Seconds (82-134)
[2024-07-24 10:38] LABS: ACT+ - POC 115 Seconds (82-134)
[2024-07-24 10:57] LABS: B.E. - POC -1.1 mmol/L; Glucose - POC 184 mg/dl (70-99); HCO3 - POC 23 mmol/L (21-28); Hematocrit - POC 28 % PCV (42-52); Hemodilution- POC Yes; Hemoglobin Calculated - POC 9.4; O2 Saturation %Calculated-POC 99.8 % (94-98); PCO2 - POC 33 mmHg (35-48); PO2 - POC 201 mmHg (83-108); Potassium - POC 4.7 mmol/L (3.5-5.1); Sodium - POC 136 mmol/L (136-145); Specimen Type - POC Arterial; pH - POC 7.45 (7.35-7.45)
--- NOTE | 2024-07-24 11:14 | W.PN.CT.SURG ---
CT Surgery Operative Note
-
CARDIAC SURGERY OPERATIVE REPORT
Preoperative Diagnosis: Multivessel Coronary Artery Disease with left main disease, NSTEMI
Postoperative Diagnosis: Same
Procedure(s) Performed:
1. Standard sternotomy with aortic and right atrial cannulation
2. Coronary artery bypass grafting x 3 (In situ UNDERWOOD to LAD, Ao to RSVG to OM, Ao to RSVG to distal RCA)
3. Left atrial maze [posterior wall isolation with encompass clamp]
4. Left atrial appendage exclusion [35 mm clip]
5. Endoscopic vein harvesting of right lower extremity
6. Placement of temporary ventricular pacing wire
7. Transesophageal echocardiography
Date of Surgery: 07/24/2024
Comorbidities:
1. NSTEMI with multivessel coronary artery disease catheter this admission
2. History of CAD status post PCI with stents x 3
3. Crohn's disease history of bowel obstruction
4. Hyperlipidemia
5. Hypertension
6. BPH
7. Paroxysmal atrial fibrillation
Attending Surgeon: Cristofer Alcantar MD, MS
Assistants: Gale Arteaga PA-C (present and necessary to cafe assistant, endoscopic vein harvest, retraction, suction, exposure, suture management, and wound closure under my direction)
Anesthesiology: Obed Chau MD and Jeanna Hannah CRNA
Scrub and Circulating RNs: Shruthi Causey RN, Bruce Pickering RN
Animal Health Technician: Anderson Ac CCP
Anesthesia: GETA
EBL: per perfusion records
Products: None
CPB Time: 73 minutes
Aortic Cross Clamp Time: 57 minutes
Indication(s) for Procedures: This is an 84-year male with an NSTEMI. He was found to have distal left main disease that was complex. Multidiscipline team discussion between PCI versus high risk surgery. Patient ultimately decided on going
forward surgery. His STS risk was reviewed. Given his history of atrial fibrillation I plan to manage that time of surgery in the form of a posterior wall isolation and left atrial appendage exclusion.
Conduit(s) Quality:
UNDERWOOD -excellent/skeletonized
RSVG -good/minor varicosities and thickening
Target(s) Quality:
RCA/PDA -excellent/good sized target accommodating a 1.5 to 2 mm probe easily, test dosing antegrade yielded a good mean flow and flow probe assessment had a mean flow of 47 cc a minute with a pulsatile index of 1.7
OM -excellent/large sized target, flow probe assessment yielded a mean flow of 50 cc a minute into low pulsatility index
LAD -excellent/good size target, flow probe assessment with a mean flow of 26 cc a minute with a low pulsatility index
Findings: Left ventricular ejection fraction preoperatively was 60% with no significant regional wall motion abnormalities. He did have some diastolic dysfunction that was notable. Following surgery his EF was the same at 65 to perhaps 70% with no
new regional wall motion abnormalities. His left atrial appendage was verified to be free of any thrombus or debris preoperatively and found to be totally occlusive postoperatively. Left atrial maze was performed using the encompass clamp
resulting in a posterior wall isolation. The ligament Chris was also divided. The UNDERWOOD was harvested in a skeletonized fashion. Following bypass grafting, test dose cardioplegia was given down each distal and confirmed patency and hemostasis.
Flow probe was used to assess all grafts which demonstrated excellent mean flows and pulsatility indices.
Description of Procedure: The patient was taken to the operating room. Their identity and procedure to be performed were verified and they were positioned supine on the operating table. Induction via general anesthesia with endotracheal intubation
was performed and central venous access and arterial monitoring were inserted. A preoperative transesophageal echocardiogram was performed to assess cardiac function and valvular function. The patient was then prepped and draped from chin to feet in
a sterile fashion. A preoperative time-out was performed with all members of the team present. A midline chest incision was performed along with median sternotomy. Simultaneous endoscopic access of the right lower extremity for saphenous vein
harvest was obtained along with administration of an initial 5,000 units of IV heparin. A RulTract sternal retractor was positioned to exposure the left internal mammary bed. The mammary was harvested and found to have good flow. A bulldog clamp was
applied to the distal end of the mammary after dividing it. It was wrapped in a papaverine soaked RayTec and replaced back into the left hemithorax. The RulTract was exchanged for a median sternal retractor. The innominate vein was isolated. Full
heparinization was given (a total of 50,000 units). We created a pericardial well. The aortic cannulation site was chosen where it was soft, pliable, and free of calcium. Cannulation was performed with an arterial cannula in the ascending aorta and
a triple-stage venous cannula through the right atrial appendage. The arterial cannula line had an appropriate bounce and correlating pressures with test dosing. Next, a root vent/antegrade cannula was inserted into the ascending aorta. The ACT was
confirmed to be over 400 and retrograde autologous priming was performed before commencing cardiopulmonary bypass. At this point the SVC was then away from the right pulmonary artery. The oblique sinus was then developed. The encompass
clamp was passed underneath the SVC and IVC across the transverse and oblique sinuses. 3 successful pairs of ablation were performed. The pulmonary artery was away from the aorta to facilitate a clamp site. The aortic cross-clamp was
placed after decreasing the flow on the bypass and mean arterial pressure. A total of 1.0L initial dose of antegrade Del-Nido cardioplegia solution was given and planned for re-dosing every 75 minutes as necessary. There was rapid electro-mechanical
arrest of the heart at 400 cc of cardioplegia. The left ventricle was observed for distention on echocardiogram and manual palpation. Cold slush was placed into a sponge and topically on the RV while we systemically cooled to 34 degrees centigrade.
Once the heart was fully arrested, it was rotated medially and the left atrial appendage was sized to a 35 mm device. Ligament Chris was also divided.
I positioned the heart to expose the distal right coronary at the posterior descending artery. A confederated salish blade was used to expose the coronary and perform the arteriotomy. Coronary Ordonez scissors were used to enlarge the incision. The saphenous vein
was trimmed and beveled to an appropriate size. The distal anastomosis was performed using 7-0 prolene in an end-to-side fashion. Antegrade cardioplegia was administered into the graft. Appropriate hemostasis and flow were confirmed. The graft was
measured for length to the aorta and cut. A suitable site on the major obtuse marginal was chosen. We dissected and prepared the distal target in a similar fashion. An end-to-side anastomosis was created with a 7-0 prolene. Antegrade cardioplegia
was administered into the graft. Appropriate hemostasis and flow were confirmed. The graft was measured for length to the aorta and cut. A suitable target on the mid/distal left anterior descending was identified. We dissected and prepared the
distal target in a similar fashion. We retrieved the UNDERWOOD from the chest and created a pericardial opening while being cognizant of the phrenic nerve to facilitate the course of the mammary. The distal end of the mammary was prepped and beveled to
size. We verified orientation and length of the BALDO and found brisk flow. An end-to-side anastomosis was created with a 7-0 prolene. We temporarily released the bulldog clamp on the mammary to inspect flow. Perfusion to the LAD territory was
visualized and hemostasis was confirmed. The bull clamp was replaced on the mammary. The heart was filled and the root was distended with antegrade cardioplegia to make final assessment of graft length and orientation. We created 2 aortotomies using
a #11 blade then a 4.0mm aortic punch. The proximal anastomoses were created in an end-to-side fashion using 6-0 prolene. At the the same time, we re-warmed to 36.5 degrees centigrade. The bulldog clamp was removed from the mammary. Temporary
bipolar ventricular pacing wires were placed on the base of the right ventricle. The patient was placed in a Trendelenburg position and flows on bypass were lowered. The aortic cross clamp was removed and flows were slowly brought back up. All
bypass grafts were inspected and were free from kinking or twisting. The distal and proximal anastomoses appeared hemostatic. Once transesophageal echocardiography appeared satisfactory for de-airing, the flows were temporarily lowered for root
vent removal. After verifying acceptable parameters, we initiated weaning from cardiopulmonary bypass. Once we were off cardiopulmonary bypass, the venous cannula was clamped and removed. A test dose of protamine was administered and the patient was
monitored for any adverse reaction before resuming protamine. Once half of the protamine dose was delivered, pump suckers were turned off and the systolic blood pressure was lowered for aortic decannulation. The aortic cannula was removed and
pursestrings were tied down. All cannulation sites were oversewn with a 4-0 prolene. The mammary bed was inspected and hemostasis was confirmed. Once the mediastinum was hemostatic, 19Fr Salvatore drain was placed in the left pleural cavity and two 24Fr
Salvatore drains were placed within the pericardium. The sternum was approximated with 4 #7 single and 3 #8 double stainless steel wires. Fascia was approximated with #1 vicryl suture. The subcutaneous, dermis and epidermis were closed in layers in a
running fashion. The skin wound was cleansed and dressed.
All instrument, sponge, and needle counts were confirmed to be correct x 2 at the end of the operation. The patient was transferred to the cardiac intensive care unit in critical but stable condition.
I, Dr. Cristofer Alcantar, was present, scrubbed for, and performed all critical elements of this procedure.
Cristofer Alcantar MD, MS
Cardiothoracic Surgeon
[facility]
This operative dictation was created using the Dispatch dictation system. Please excuse any grammatical, typographical, or 'sound alike' errors
--- NOTE | 2024-07-24 11:20 | PTCARENOTE ---
Patient received from CVOR @ 1120 on Levo @14, insulin @2, Precedex @0.5. Pt unresponsive, RAAS -5, PERRLA 2mm sluggish. POX 99% on SIMV 40% 12 500 5/5. ETT 8.0 25cm at lip. Left pleural chest tube and 2 mediastinal chest tubes. Suction set to 20
mmHg and draining red fluid output WNL. Bilateral anterior breath sounds audible. NSR with rates in the 60s-70s. BP supported with levophed. Labile upon arrival. CVP 4. Heart tones audible. Bilateral radial and DP pulses palpable. No edema noted.
Epicardial v-wire intact, disconnected from temp pacer box. Abdomen soft. Hypoactive BS. Bellamy draining clear yellow urine. Sternal incision approximated with skin glue, WILL. Chest tube sites covered, CDI. Right groin puncture site approximated with
skin glue, WILL. Right SVG harvest site approximated with skin glue, covered with SERA-CDI. R radial A-Line intact. Right IJ cordis and slick intact with CVP. All lines flushed, zeroed, and leveled. [place] 10mL/hr KVO, R Cordis 10mL/hr KVO, 20 PIV in R
forearm and 20g L AC. LR bolus and 500mg CaCl given per orders. Post-op EKG, labs, and CXR completed.
--- NOTE | 2024-07-24 11:21 | CON.INTV ---
Consultation
Consultation Request
Date/Time Consultation Requested: 07/24/2024 - 105
Date/Time Consultation Performed: 07/24/2024 - 1110
Requesting Provider: Luther Posey PA-C
Performing Provider: Dr. Gilman
Reason for Consultation: s/p CABG x3
Medical History
-
Chief Complaint: Chest pain
History of Present Illness:
84-year-old male with a past medical history of CAD s/p stents x 3, hypercholesterolemia, hypertension, A-fib, history of NSVT, carotid arterial disease, Crohn's disease, history of diverticulitis complicated by small intramural abscess,
nephrolithiasis, chronic back pain, GERD, glaucoma, BPH and TAA without rupture who presented with left-sided chest pain. He also had noticed an irregular heartbeat prior to arrival. Initial troponin slightly elevated at 0.105. Initial EKG showed
NSR with PVCs. He was admitted to telemetry as an NSTEMI. Cardiology was consulted, heparin drip was started and aspirin also started. Left heart catheterization performed on 07/18/2024 showing significant multivessel CAD involving the distal left
main extending into the ostial LAD and ostial left circumflex artery, as well as the mid RCA. LVEDP was normal at 6 mmHg. Cardiothoracic surgery was consulted for surgical revascularization. Today he underwent a CABG x 3 with left atrial MAZE and
left atrial appendage exclusion with 35mm clip. There were no complications and he was transferred to the CVICU with a left pleural chest tube + mediastinal chest tubes x 2. Hearing Examiner service is now consulted for additional
management/recommendations.
When I saw the patient he was in bed, intubated on SIMV 12/500/40%/5, with PIP: 14 cmH2O, VTe 530 mL and breathing at 22 breaths/min. PS was 5. He is on insulin drip at 0.8 units/hr, Levophed at 9mcg/min. Heart rate 71, BP via right radial
A-line: 94/48, BP via NIBP: 107/61 and SpO2 was 98%. He was awakening to verbal stimuli and following commands.
PMHx: CAD s/p stents x3, Atrial fibrillation, Hypertension, High cholesterol, Short Runs of Nonsustained VT, Carotid arterial disease, Crohn's Dx (1972), Colonic polyps, Hemorrhoids, diverticulitis with several bouts and noted small intramural
abscess 09/2016, Nephrolithiasis - cystoscopy, Back pain - pinched nerve, GERD, Dysphagia, B12 deficiency, Thoracic aortic aneurysm without rupture, Anastomotic stricture of colorectal region, Family history of colon cancer, Gilbert's disease,
glaucoma, cataracts, enlarged prostate, BPH, Elevated PSA
PSHx: Appendectomy, cholecystectomy, cardiac stents x 3, colon resection, right entropion
Past Medical History
Past Medical History: Other (Above as per HPI)
Past Surgical History: Other (Above as per HPI)
Social History
Tobacco: Former Smoker (Quit 35 years ago, smoked 2 PPD x 25 years)
Alcohol: Occasional
Drug: None
Family History
Family History: Cancer (Father: ?Colon cancer) and Other (Sister: Nephrectomy)
Allergies / Home Medications
Allergies
Allergy/AdvReac Type Severity Reaction Status Date / Time
No Known Allergies Allergy Verified 07/17/24 15:04
Home Medications
�Medication �Instructions �Recorded �Confirmed �Last Taken �Type
simvastatin 20 mg tablet 20 mg PO HS 07/26/10 07/17/24 09/20/16 History
tamsulosin 0.4 mg capsule 0.4 mg PO BID 07/26/10 07/17/24 09/21/16 History
ascorbic acid (vitamin C) 250 mg 250 mg PO DAILY 09/21/16 07/17/24 09/21/16 History
tablet
cyanocobalamin (vitamin B-12) 1,000 mcg PO DAILY 09/21/16 07/17/24 09/21/16 History
1,000 mcg tablet
aspirin 81 mg chewable tablet 81 mg PO DAILY 05/22/21 07/17/24 Unknown History
cholestyramine (with sugar) 4 gram 4 gm PO HS 05/22/21 07/17/24 Unknown History
powder for susp in a packet
finasteride 5 mg tablet 5 mg PO DAILY 05/22/21 07/17/24 Unknown History
omega 2-zbk-rvs-fish oil 300 1 ea PO DAILY 05/22/21 07/17/24 Unknown History
mg-1,000 mg capsule (Fish Oil)
therapeutic multivitamin 1 tab PO DAILY 07/17/24 07/17/24 Unknown History
Review of Systems
-
Unable to Obtain full review of systems at this time due to: Patient Intubation
Vitals / Labs / Diagnostic Testing
Vital Signs
Temp Pulse Resp BP Pulse Ox
98.6 F 84 19 113/64 99
07/24/24 15:00 07/24/24 15:00 07/24/24 15:00 07/24/24 15:00 07/24/24 15:00
Lab Data
07/24/24 11:33
Laboratory Results
07/24/24 07/24/24 07/24/24
05:02 11:33 15:29
PT 16.7 H
INR 1.33
APTT 178.1 H*
pH 7.39 7.52 H
pCO2 38 25 L
pO2 124 H 151 H
HCO3 23.0 20.4 L
O2 Delivery Level vent
Diagnostic Testing:
Physical Exam
-
HEENT: Normocephalic, Anicteric and Other (ETT in place)
Cardiovascular: S1/S2 and Peripheral Edema (negative)
Respiratory: Wheeze (negative), Rales (negative), Rhonchi (negative) and Other (Mechanical breath sounds heard bilaterally)
GI: Soft, Non Distended, Non Tender and Normal Bowel Sounds
Neurology: Tremors (negative) and Other (Sedated but easily arousable to voice and tactile stimulation and following commands)
Skin: Warm and Dry
General: Respiratory Distress (negative), Comfortable, Fever (negative) and Chills (negative)
Assessment
-
Assessment: 84-year-old male with a past medical history of CAD s/p stents x 3, hypercholesterolemia, hypertension, A-fib, history of NSVT, carotid arterial disease, Crohn's disease, history of diverticulitis complicated by small intramural
abscess, nephrolithiasis, chronic back pain, GERD, glaucoma, BPH and TAA without rupture who presented with left-sided chest pain. He also had noticed an irregular heartbeat prior to arrival. Initial troponin slightly elevated at 0.105. Initial
EKG showed NSR with PVCs. He was admitted to telemetry as an NSTEMI. Cardiology was consulted, heparin drip was started and aspirin also started. Left heart catheterization performed on 07/18/2024 showing significant multivessel CAD involving the
distal left main extending into the ostial LAD and ostial left circumflex artery, as well as the mid RCA. LVEDP was normal at 6 mmHg. Cardiothoracic surgery was consulted for surgical revascularization. Today he underwent a CABG x 3 with left
atrial MAZE and left atrial appendage exclusion with 35mm clip. There were no complications and he was transferred to the CVICU with a left pleural chest tube + mediastinal chest tubes x 2. Hearing Examiner service is now consulted for additional
management/recommendations.
Chronic conditions CHAIN PERSON: CAD s/p stents x3, Atrial fibrillation, Hypertension, High cholesterol, Short Runs of Nonsustained VT, Carotid arterial disease, Crohn's Dx (1972), Colonic polyps, Hemorrhoids, diverticulitis with several bouts and noted
small intramural abscess 09/2016, Nephrolithiasis - cystoscopy, Back pain - pinched nerve, GERD, Dysphagia, B12 deficiency, Thoracic aortic aneurysm without rupture, Anastomotic stricture of colorectal region, Family history of colon cancer,
Gilbert's disease, glaucoma, cataracts, enlarged prostate, BPH, Elevated PSA
Impression:
#Multivessel CAD involving distal left main artery extending into the ostial LAD, ostial LCx and mid RCA with NSTEMI s/p CABG x 3 (POD #0)
#Left atrial MAZE + left atrial appendage exclusion with 35mm clip (POD #0)
#Acute anemia due to above
#Acute respiratory alkalosis
#Hyperglycemia (prediabetes with HbA1c: 6 on 07/19/2024)
#Hypercholesterolemia
#A-fib
#CAD s/p stents x 3
#History of NSVT
#History of Crohn's disease
#GERD
#Thoracic aortic aneurysm without rupture
#Former tobacco use ([id number] history, quit 35 years ago)
Plan:
Ventilator settings reviewed
FiO2 will be weaned to maintain SpO2 >90-94%
Minute ventilation will be adjusted
Arterial blood gases will be monitored
Spontaneous breathing trial will be attempted with hopeful extubation after anesthesia/sedation wear off
prn nebulized bronchodilators
Pulmonary artery catheter parameters will be followed
Pressors/antihypertensive/inotropes/diuretics will be provided as needed
Maintain MAP>65
Replete electrolytes with K>4, Mg>2
Monitor chest tube output (left pleural + mediastinal chest tubes x 2)
Monitor hemoglobin
Monitor platelet count and coags
Transfuse blood products as needed to maintain Hb>7g/dL, plt>50k (given post-operative status)
CT surgery managing chest tubes
Monitor blood sugar to maintain euglycemia with goal BG 140-180
Insulin drip per protocol
Aspiration precautions
VAP prevention protocol
DVT prophylaxis
Early nutrition
Early mobilization
Critical care statement: A total of 46 minutes of critical care time was provided for this patient today. This includes management of ventilator, spontaneous breathing trial, arterial blood gases, pressors, of unstable vital signs, evaluation of the
patient at bedside, reviewing the patient's pertinent medical records including radiographs, microbiology, laboratory evaluations, and discussion with primary team and critical care nursing.
[2024-07-24] MEDS: CALCIUM CHLORIDE 10% SYRINGE 500 MG IV (11:30)
[2024-07-24] MEDS: LR 250 ML IV ×4 (11:30→12:32)
[2024-07-24 11:33] LABS: Glucose - Point of Care 163 mg/dl (70-99)
--- NOTE | 2024-07-24 11:33 | W.PN.UPDATE ---
Update Note
Progress Note Update
4-year-old male was admitted 07/17/2024 with chest pain and ruled in for non-STEMI. Left heart cath reported significant multivessel coronary artery disease involving distal left main extending into the ostial LAD and ostial left
circumflex artery, and mid RCA. Patient was hesitant to proceed with CABG and was ultimately agreeable on 07/21/2024.
IV fluids: 1200
U.O.:� 525
Blood:� none
Wires:� bipolar v-wire
Inotropes:� none
Pressors:� Levophed @ 12
Sedatives:� Precedex @ 0.6
�
NEURO: sedated on Precedex, pupils +Xmm B/L
RESP: #8OT @24cm> 500/60%/14/11. Lungs clear B/L. 2 mediastinal (20cc on arrival) and L pleural (10cc on arrival) chest tubes to -20cm suction. Sanguineous drainage
CV: RRR +S1, S2, no S3, no�rub, no murmur. Dermabond to median sternotomy. RIJ w/slick
ABD: round, soft, no BS
EXT: no edema, +2/4 DP pulses B/L, no femoral bruit, RLE SERA wrap intact; right radial A-line intact
: Bellamy with clear yellow urine
�
A/P: POD #0 s/p 3 CABG x 3 (UNDERWOOD to LAD, RSVG to OM, RSVG to distal RCA), left atrial maze [posterior wall isolation with encompass clamp], left atrial appendage exclusion [#35 mm clip]
JULIANN: EF�>75%, tr MR/TR/AI
- wean and extubate
# CAD
- will require beta chantale (as HR permits), ASA/Plavix and statin
# Paroxysmal atrial fibrillation (declining anticoagulation)
- currently sinus rhythm
- continue prophylactic amiodarone
�
# acute surgical blood loss anemia-expected
- trend CBC
�
�
# pre-diabetes (A1C 6)
- insulin infusion x 24h
- transition to moderate SSI when off infusion
�
# BPH
- resume� Flomax/Proscar as BP permits
[2024-07-24 11:50] LABS: B.E. -1.7 mmol/L; Ionized Calcium 1.49 mMOL/L (1.15-1.33); O2 Saturation % 98.8 % (94-98); PCO2 38 mmHg (35-48); PO2 124 mmHg (83-108); Potassium 4.5 mMOL/L (3.5-5.1); Sodium 131 mMOL/L (136-145); pH 7.39 (7.35-7.45)
[2024-07-24 11:52] LABS: O2 Therapy vent
[2024-07-24 11:57] LABS: Hematocrit 30.9 % (39.0-52.0); Hemoglobin 10.9 g/dL (13.0-18.0); Platelet Count 143 10^3/uL (130-400)
--- NOTE | 2024-07-24 12:02 | CM ---
Chart reviewed. Patient is in the OR today. Patient is independent of ADLS, lives with his significant other, 2 STH, 1 RASHIDA, 0 DME. Patient's son lives across the street. Plan is for the patient to return home with CT Transitional RN. CM to
follow
[2024-07-24 12:06] LABS: Blood Urea Nitrogen 19 mg/dl (9-20); Estimated Creatinine Clearance 61 ml/min; Glucose 159 mg/dl (70-99); Magnesium 2.8 mg/dl (1.6-2.3)
[2024-07-24 12:08] LABS: INR 1.33; PT 16.7 Sec (11.4-14.6)
[2024-07-24] MEDS: NEURONTIN PO ×2 (12:30→15:16)
[2024-07-24] MEDS: ANCEF 10 IV ×2 (12:30)
[2024-07-24] MEDS: NSS 500 IV (12:32)
[2024-07-24 12:41] LABS: B.E. - POC 1.5 mmol/L; Glucose - POC 179 mg/dl (70-99); HCO3 - POC 25 mmol/L (21-28); Hematocrit - POC 29 % PCV (42-52); Hemodilution- POC Yes; Ionized Calcium - POC 1.03 mmol/L (1.15-1.33); Lactate - POC < 0.30 mmol/L (0.36-0.75); O2 Saturation %Calculated-POC 99.9 % (94-98); PCO2 - POC 37 mmHg (35-48); PO2 - POC 339 mmHg (83-108); Potassium - POC 5.7 mmol/L (3.5-5.1); Sodium - POC 134 mmol/L (136-145); Specimen Type - POC Arterial; pH - POC 7.45 (7.35-7.45)
[2024-07-24 12:44] LABS: Glucose - Point of Care 139 mg/dl (70-99)
--- NOTE | 2024-07-24 13:14 | W.PN.CARDCBS ---
Addendum entered and electronically signed by Andreas Thakur MD 07/24/24 15:09:
I saw and examined the patient.
The Plant Taxonomy Teacher's note was reviewed and I agree with the note.
Comment: Briefly, 84-year-old man presenting with chest discomfort found a mildly elevated troponin consistent with NSTEMI. Underwent coronary angiography showing multivessel CAD. Now status post CABG x 3 earlier today.
Postoperatively he remains in the CVICU where he is intubated and sedated
Requiring norepinephrine for pressor support
CVP was low initially based on invasive hemodynamics, would consider further IV fluid resuscitation
Maintaining sinus rhythm on telemetry
Agree with current cardiac meds�aspirin/Plavix, high intensity statin. Eventual beta-chantale as blood pressure allows.
We will continue to follow with you
Original Note:
Today's Communication / Plan
-
Continue postoperative care
Impression / Plan
-
Assess:
Presentation with CP
Unstable angina/non-STEMI with peak trop 0.1
CAD
status post LAD/RCA stenting 2006/inferior wall HI
Multivessel CAD by cath 07/18/2024
Status post CABG x 3 in situ UNDERWOOD to LAD, ao to RSVG to OM, ao to RSVG to distal RCA, maze, JUAN clip 07/24/2024
Hypertension
Hyperlipidemia
Crohn's disease
Diverticulitis
Orthostasis
Paroxysmal atrial fibrillation declining anticoagulation
Gilbert's disease
Echo 04/26: EF 55 to 60%, mild AI, mildly dilated aortic root.
ECHO 07/19/2024: EF 55 to 60%, mild concentric LVH, mild MR, trace TR, PAP 15 to 20 mmHg, no significant change compared to prior
Plan:
-Patient presented with chest pain and ruled in for NSTEMI with peak troponin of 0.1. By cardiac catheterization 07/18/2024 patient had evidence of multivessel CAD including distal left main. Options were discussed with both patient and family and
he opted for CABG.
-Status post CABG x 3 in situ UNDERWOOD to LAD, ao to RSVG to OM, ao to RSVG to distal RCA, maze, JUAN clip 07/24/2024
-Remains intubated and sedated
-Blood pressures have been labile thus far postoperatively. Currently on levo at 6, wean as able. Also getting 1 L of IV fluid
-Follow hemoglobin postoperatively. As presented with NSTEMI will need dual antiplatelet therapy postoperatively
-EKG sinus rhythm with incomplete right bundle branch block, follow. Follow on telemetry
-He has history of paroxysmal atrial fibrillation, however has declined full anticoagulation. He has history of Crohn's disease. He is now status post left atrial appendage clip. Continue beta-chantale/amiodarone postop as indicated
-Continue statin
-Will follow postoperatively
-Discussed with nursing
Progress Note - Profiling Machine Set Up Operator
Subjective
Date of Service: July 24, 2024
Intubated, sedated
Objective
Labs:
07/24/24 11:33
Labs
Hgb 10.9 g/dL (13.0-18.0) L 07/24/24 11:33
Hct 30.9 % (39.0-52.0) L 07/24/24 11:33
Plt Count 143 10^3/uL (130-400) D 07/24/24 11:33
PT 16.7 Sec (11.4-14.6) H 07/24/24 11:33
INR 1.33 07/24/24 11:33
APTT 178.1 Sec (23.4-35.0) H* 07/24/24 05:02
Sodium 135 mmol/L (135-145) 07/23/24 08:18
Potassium 4.5 mmol/L (3.5-5.1) 07/23/24 08:18
BUN 19 mg/dl (9-20) 07/24/24 11:33
Creatinine 0.8 mg/dL (0.7-1.3) 07/24/24 11:33
Glucose 159 mg/dl (70-99) H 07/24/24 11:33
Vital Signs and I&O:
Vital Signs
Temp Pulse Resp BP Pulse Ox
95.8 F L 63 12 112/50 99
07/24/24 12:00 07/24/24 12:00 07/24/24 12:00 07/24/24 12:00 07/24/24 12:00
Vital Signs
Temp Pulse Resp BP Pulse Ox
95.8 F L 63 12 112/50 99
07/24/24 12:00 07/24/24 12:00 07/24/24 12:00 07/24/24 12:00 07/24/24 12:00
Intake & Output
07/22/24 07/23/24 07/24/24 07/25/24
07:59 07:59 07:59 07:59
Intake Total 612 / 612 560 / 560 110 / 110 1099.6 / 1099.6
Output Total 475 / 475 250 / 250 270 / 270
Balance 612 / 612 85 / 85 -140 / -140 829.6 / 829.6
Physical Exam
Physical Exam
GEN: No distress, intubated
HEENT: supple, mmm
LUNGS: Rhonchi on L, no wheezes
CV: Reg, S1/S2, no murmur
ABD: soft, BS+, NT/ND
EXT: No clubbing, cyanosis, edema. Right lower extremity with Kwan wrap in place
NEURO: Sedated
SKIN: Warm, pink, dry. No rash. Sternotomy incision clean dry and intact. Chest tubes in place
--- NOTE | 2024-07-24 13:20 | PTCARENOTE ---
Increasing levophed requirements, CT SENIOR SOFTWARE QUALITY ENGINEER notified. Orders for 5% Albumin. Administered.
[2024-07-24] MEDS: ALBUMIN 5% 250 IV ×2 (13:24→17:04)
[2024-07-24] MEDS: TYLENOL PO (13:52)
[2024-07-24 14:05] LABS: Glucose - Point of Care 96 mg/dl (70-99)
--- NOTE | 2024-07-24 14:55 | PTCARENOTE ---
Pt breathing over the ventilator. Follows commands to squeeze hands, wiggle toes, and shake head appropriately. RT at bedside and pt placed on cpap trial. POX 99%, pt tolerating.
[2024-07-24] MEDS: LEVOPHED 250 IV (15:00)
[2024-07-24 15:11] LABS: Glucose - Point of Care 109 mg/dl (70-99)
[2024-07-24] MEDS: PACERONE PO (15:16)
[2024-07-24 15:38] LABS: B.E. -1.3 mmol/L; HCO3 20.4 mmol/L (21-28); Ionized Calcium 1.23 mMOL/L (1.15-1.33); O2 Saturation % 99.4 % (94-98); PCO2 25 mmHg (35-48); PO2 151 mmHg (83-108); Potassium 4.3 mMOL/L (3.5-5.1); pH 7.52 (7.35-7.45)
[2024-07-24 16:00] LABS: Hematocrit 31.1 % (39.0-52.0); Hemoglobin 11.1 g/dL (13.0-18.0); Platelet Count 180 10^3/uL (130-400)
--- NOTE | 2024-07-24 16:00 | PTCARENOTE ---
Patient extubated @ 1550. AOx4, NSR w/ occasional PAC's, BP 116/75, supported with levo gtt. HR 89 POX 98% 6L NC, IS [address] output WNL, Bellamy draining clear yellow urine WNL. Sternal incision dry and intact w/ no drainage. Groin puncture
wound dry and intact w/ no drainage. CT dressing dry and intact w/ no drainage. Patient cleaned with CHG wipes. Levo and insulin titrated per protocol. Patient resting with call boland in reach.
[2024-07-24 16:01] LABS: Glucose - Point of Care 108 mg/dl (70-99)
[2024-07-24] MEDS: LOW STRENGTH ASPIRIN 81 MG PO (17:01)
[2024-07-24 17:06] LABS: Mixed Venous O2 Saturation 72.5 %
[2024-07-24] MEDS: FLEXERIL 5 MG PO (17:07)
[2024-07-24] MEDS: ANCEF 5 IV (17:56)
[2024-07-24 18:07] LABS: Glucose - Point of Care 112 mg/dl (70-99)
[2024-07-24] MEDS: OFIRMEV 100 IV (18:19)
[2024-07-24 19:55] LABS: Glucose - Point of Care 89 mg/dl (70-99)
--- NOTE | 2024-07-24 21:00 | PTCARENOTE ---
Patient reassessed. NSR BP 117/60 HR 80 POX 100% 4L NC. Chest tubes draining red fluid WNL. Bellamy draining clear yellow urine WNL. Levo and Insulin titrated per protocol.
[2024-07-24 22:08] LABS: Glucose - Point of Care 117 mg/dl (70-99)
[2024-07-24] MEDS: PROSCAR 5 MG PO (22:57)
[2024-07-24] MEDS: TYLENOL 1000 MG PO (22:57)
[2024-07-24] MEDS: SENOKOT-S PO ×2 (22:57→23:05)
[2024-07-24] MEDS: LIPITOR 40 MG PO (22:58)
[2024-07-24] MEDS: PACERONE 200 MG PO (22:58)
[2024-07-24] MEDS: NEURONTIN 100 MG PO (22:58)
[2024-07-24] MEDS: SODIUM BICARBONATE 50 MEQ IV (23:40)
[2024-07-24 23:56] LABS: Glucose - Point of Care 109 mg/dl (70-99)
[2024-07-25] VITALS (25 sets, daily range): BP systolic 78–133; BP diastolic 38–76; PULSE 74; O2SAT 94–96; BMI 24.8
[2024-07-25] MEDS: CALCIUM GLUCONATE 100 IV (00:19)
[2024-07-25] MEDS: QUESTRAN PO ×2 (00:24→21:56)
--- NOTE | 2024-07-25 00:27 | W.PN.CT ---
Today's Communication / Plan
-
Plan:
-No major issues overnight. Hemodynamically and neurologically intact
-Pt successfully extubated yesterday 07/24/24 @ 1600
-Weaned off Levophed last night, remains on insulin gtt per protocol
-No swan, U/O since OR: 975 mL
-Monitor chest tube output: 2meds 80/200, L pleural 60/155
-AM cxr looks clear, no ptx on my review. F/U official report
-Cont. current meds (ASA, Plavix, Lipitor, Amiodarone; will hold AM dose of Lopressor given soft BP postop)
-D/C'd a-line and SLIC @ 0600
-Consider D/C rothman catheter tomorrow given BPH hx on both Finasteride and Flomax @ home to avoid acute urinary retention
-Transfer to [facility] phase when off insulin gtt per protocol
-Maintain cordis
-Will pull temporary PW likely tomorrow
-Wean off of O2 as tolerated
-Encourage use of IS
-OOB into chair/Ambulate
Assessment / Plan
-
Assessment:
-S/P Sternotomy with aortic and right atrial cannulation/CABG x 3 (In situ UNDERWOOD to LAD, Ao to RSVG to OM, Ao to RSVG to distal RCA)/Endoscopic vein harvesting of right lower extremity/Left atrial maze [posterior wall isolation/ with encompass
clamp]/Left atrial appendage exclusion [35 mm clip], by Dr. Alcantar, 07/24/24, pod#1
-Severe 3v CAD/80-85% distal LM
-USA
-LVEF 55-60% preop, > 75% postop per intraop JULIANN
-NSTEMI (peak trop 0.111)
-Hx OK S/P with Cypher RORY to LAD and RCA, 2006
-LVEF 55-60%
-Mild MR
-HTN
-HLD
-Prediabetes (A1C 6.0)
-Paroxysmal atrial fibrillation (declining anticoagulation)
-Crohn's disease
-Gilbert's syndrome
-B12 deficiency
-Diverticulitis
-BPH (on Finasteride and Flomax @ home)
-Hx of orthostasis (likely from Flomax/Finasteride)
-S/P Appendectomy, 1971
-S/P Bowel resection, 1971
-S/P Cholecystectomy
-Acute postop blood loss/Anemia (stable without transfusion)
-Acute postop atelectasis
-Acute postop hypovolemia with subsequent hypervolemia
Discussed patient care with: Cardiology, Nursing, Respiratory Therapy, Pharmacy and Care Team
Subjective
Procedure
-S/P Sternotomy with aortic and right atrial cannulation/CABG x 3 (In situ UNDERWOOD to LAD, Ao to RSVG to OM, Ao to RSVG to distal RCA)/Endoscopic vein harvesting of right lower extremity/Left atrial maze [posterior wall isolation/ with encompass
clamp]/Left atrial appendage exclusion [35 mm clip], by Dr. Alcantar, 07/24/24
-
Date of Service: July 25, 2024
Pt c/o incisional pain, otherwise feels well
Objective Data
-
PT 16.7 Sec (11.4-14.6) H 07/24/24 11:33
INR 1.33 07/24/24 11:33
APTT 178.1 Sec (23.4-35.0) H* 07/24/24 05:02
Vital Signs
Vital Signs
Temp Pulse Resp BP Pulse Ox
98.9 F 76 17 105/48 98
07/25/24 00:00 07/25/24 00:20 07/25/24 00:20 07/25/24 00:00 07/25/24 00:[address] Intake/Output/Weight
07/24/24 07/24/24 07/25/24
06:59 18:59 06:59
Intake Total 110 / 110 2519.4 / 2754.2 234.8 / 2754.2
Output Total 150 / 250 765 / 1045 280 / 1045
Balance -40 / -140 1754.4 / 1709.2 -45.2 / 1709.2
SaO2: 98 (RA)
Physical Exam
-
General: Awake, Oriented and AOx3
Cardiovascular: Regular rate & rhythm, No Murmurs, No Rub and No Gallop
Respiratory: Decreased Breath Sounds (at bases, otherwise clear)
Sternum: Stable
Incision: Clean, Dry, Intact and Dressing Intact
Extremities: Other (+trace edema)
Data Reviewed
-
Lab Results: Results Reviewed
Medications: Active Meds Reviewed
Chest X-Ray: Report Reviewed and Image Reviewed
ECG: Report Reviewed and Image Reviewed
[2024-07-25 02:08] LABS: Glucose - Point of Care 92 mg/dl (70-99)
[2024-07-25] MEDS: ANCEF 5 IV ×2 (02:22→11:48)
[2024-07-25] MEDS: LR 250 ML IV (02:30)
--- NOTE | 2024-07-25 02:46 | DOWNTIME ---
There was a [employer] Client Masonry Instructor Downtime on 07/25/2024 from 0100 to 07/25/2023 at 0205 . Downtime documentation of patient's care, including medication administrations, has been reconciled in the electronic record per guidelines. Refer to the
patient's paper chart under the miscellaneous tab to see printed paper medication records and downtime forms.
[2024-07-25 03:30] LABS: Hematocrit 26.5 % (39.0-52.0); Hemoglobin 9.4 g/dL (13.0-18.0); Mean Corp Hgb Conc. 35.5 g/dL (33.0-37.0); Mean Corpuscular Hgb 30.9 pg (27.0-31.0); Mean Corpuscular Volume 87.2 fL (80.0-94.0); Mean Platelet Volume 10.3 fL (7.4-10.4); Platelet Count 134 10^3/uL (130-400); Red Blood Cell Count 3.04 10^6/uL (4.70-6.10); Red Cell Dist. Width 13.1 % (11.5-14.5); White Blood Cell Count 10.2 10^3/uL (4.8-10.8)
[2024-07-25 03:32] LABS: Blood Urea Nitrogen 23 mg/dl (9-20); Calcium 8.6 mg/dl (8.4-10.2); Carbon Dioxide 24 mmol/L (22-30); Chloride 103 mmol/L (98-107); Estimated Creatinine Clearance 54 ml/min; Glucose 97 mg/dl (70-99); Magnesium 2.3 mg/dl (1.6-2.3); Potassium 4.3 mmol/L (3.5-5.1); Sodium 134 mmol/L (135-145); eGFR > 60.00
[2024-07-25 04:20] LABS: Glucose - Point of Care 91 mg/dl (70-99)
[2024-07-25 06:06] LABS: Glucose - Point of Care 94 mg/dl (70-99)
--- NOTE | 2024-07-25 07:15 | PTCARENOTE ---
SLIC and A line removed per order. Pt stood to scale and to chair with unsteady gait, dizzy while ambulating but BP stable.
[2024-07-25] MEDS: TYLENOL 1000 MG PO ×3 (07:32→21:56)
[2024-07-25] MEDS: FLEXERIL 5 MG PO ×2 (07:32→21:56)
--- NOTE | 2024-07-25 08:00 | PTCARENOTE ---
Pt hypotensive in chair, 250 ml LR administered, CT BACKEND PYTHON DEVELOPER ordered midodrine to start. BB and amio held. Pt recovered w/o issue.
--- NOTE | 2024-07-25 08:00 | PTCARENOTE ---
Assumed care of patient from rn night RN, AAO x 3, drowsy but easily arousable. NSR on monitor. . Epicardal wire to back VVI . No pacing noted at present. 2 L NC 97&, Using IS to 1000. Chest tubes x 3 to - 20 cm suction. No air leak or
crepitus noted. Abdomen soft and non tender. Denies nausea at present. Rt groin/SVG site c,d,i. Kwan wrap intact. Pulses palpable. Plan for day discussed.
[2024-07-25 08:19] LABS: Glucose - Point of Care 96 mg/dl (70-99)
--- NOTE | 2024-07-25 08:28 | W.PN.INTV ---
Today's Communication / Plan
Recommendations
Up OOB as tolerated
Encourage incentive spirometer use
Pain control
Wean down supplemental O2 while maintaining SpO2 >90-94%
If resting SaO2 is <96% on room air then check ambulatory pulse oximetry prior to discharge
Cardiac rehab
Goal BG >100 and <180
Patient has been downgraded to CVICU�telemetry status. No additional recommendations at this time. Financial Administrative Assistant/Pulmonary service will now sign off. Please reconsult if there are any additional questions/concerns, or if patient's respiratory
status deteriorates.
Assessment
-
Assessment: 84-year-old male with a past medical history of CAD s/p stents x 3, hypercholesterolemia, hypertension, A-fib, history of NSVT, carotid arterial disease, Crohn's disease, history of diverticulitis complicated by small intramural
abscess, nephrolithiasis, chronic back pain, GERD, glaucoma, BPH and TAA without rupture who presented with left-sided chest pain. He also had noticed an irregular heartbeat prior to arrival. Initial troponin slightly elevated at 0.105. Initial
EKG showed NSR with PVCs. He was admitted to telemetry as an NSTEMI. Cardiology was consulted, heparin drip was started and aspirin also started. Left heart catheterization performed on 07/18/2024 showing significant multivessel CAD involving the
distal left main extending into the ostial LAD and ostial left circumflex artery, as well as the mid RCA. LVEDP was normal at 6 mmHg. Cardiothoracic surgery was consulted for surgical revascularization. Today he underwent a CABG x 3 with left
atrial MAZE and left atrial appendage exclusion with 35mm clip. There were no complications and he was transferred to the CVICU with a left pleural chest tube + mediastinal chest tubes x 2. Financial Administrative Assistant service is now consulted for additional
management/recommendations.
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
small intramural abscess 09/2016, Nephrolithiasis - cystoscopy, Back pain - pinched nerve, GERD, Dysphagia, B12 deficiency, Thoracic aortic aneurysm without rupture, Anastomotic stricture of colorectal region, Family history of colon cancer,
Gilbert's disease, glaucoma, cataracts, enlarged prostate, BPH, Elevated PSA
Impression:
#Multivessel CAD involving distal left main artery extending into the ostial LAD, ostial LCx and mid RCA with NSTEMI s/p CABG x 3 (POD #1)
#Left atrial MAZE + left atrial appendage exclusion with 35mm clip (POD #1)
#Acute anemia due to above
#Acute respiratory alkalosis
#Hyperglycemia (prediabetes with HbA1c: 6 on 07/19/2024) - glucose now controlled
#Hypercholesterolemia
#A-fib
#CAD s/p stents x 3
#History of NSVT
#History of Crohn's disease
#GERD
#Thoracic aortic aneurysm without rupture
#Former tobacco use ([id number] history, quit 35 years ago)
Plan:
Patient successfully extubated on 07/24/2024 to nasal cannula, and he is currently on 2 L/min saturating 97% and breathing comfortable
Maintain SpO2 >90-94%
Encourage incentive spirometer q1hr while awake
prn nebulized bronchodilators - not currently bronchospastic
Maintain MAP>65
Replete electrolytes with K>4, Mg>2
Monitor chest tube output (left pleural + mediastinal chest tubes x 2)
Monitor hemoglobin
Monitor platelet count and coags
Transfuse blood products as needed to maintain Hb>7g/dL, plt>50k (given post-operative status)
CT surgery managing chest tubes
Monitor blood sugar to maintain euglycemia with goal BG 140-180
Insulin drip now off - continue SQ ISS to maintain BG goal as above
Aspiration precautions
DVT prophylaxis
Early nutrition
Early mobilization
Patient has been downgraded to CVICU�telemetry status. No additional recommendations at this time. Financial Administrative Assistant/Pulmonary service will now sign off. Thank you for allowing us to be involved in the care of this patient. Please reconsult if there
are any additional questions/concerns, or if patient's respiratory status deteriorates.
Total time spent today was 56 minutes for this encounter. Time includes reviewing laboratory test/imaging results, reviewing pertinent medical records, obtaining and reviewing medical history, performing an appropriate exam, ordering medications,
tests and procedures. Time also includes documentation of this encounter, coordinating patient care and communicating with other healthcare professionals. Total time does not include separately billed tests performed on this date of service.
Subjective Dataa
Subjective Data
Date of Service:
Date of Service: July 25, 2024
Chief Complaint: Financial Administrative Assistant Follow Up
Subjective:
Patient seen and evaluated today at bedside. Laying in bed with family members at bedside and he is in no acute distress. Currently on 2 L/min and saturating 97% with heart rate 70 and BP 120/45. He is pulling 1.5 L from the incentive spirometer.
Denies ALEXANDER, nausea, vomiting, fevers or chills.
Review of Systems
General: Other (Negative unless mentioned above)
Objective Data
Data Reviewed
Vital Signs / I&O / Oxygen:
Vital Signs
Temp Pulse Resp BP Pulse Ox
98.5 F 73 20 104/46 100
07/25/24 06:00 07/25/24 06:00 07/25/24 06:00 07/25/24 06:00 07/25/24 06:00
Intake and Output
07/24/24 07/25/24 07/26/24
06:59 06:59 06:59
Intake Total 110 / 110 2821.2 / 2821.2
Output Total 250 / 250 1320 / 1320
Balance -140 / -140 1501.2 / 1501.2
SaO2 [CPAP/PSV] 99
SaO2 [SIMV] 99
SaO2 100
Nasal Cannula flow liters per 2
minute
Physical Exam
General: Respiratory Distress (negative), Comfortable, Chills (negative) and Sweats (negative)
HEENT: Normocephalic and Anicteric
Cardiovascular: S1-S2, Rub and Peripheral Edema (negative)
Respiratory: Wheeze (negative), Crackles (Bibasilar), Rhonchi (negative), Non-Labored Respirations and Stridor (negative)
GI: Soft, Non Distended, Non Tender and Normal Bowel Sounds
Neurology: AO x 3 and Tremors (negative)
Skin: Warm, Dry, Cyanosis (negative) and Jaundice (negative)
Labs/Micro/Reports
Lab Data
07/25/24 03:11
07/25/24 03:11
Laboratory Results
07/24/24 07/24/24
11:33 15:29
PT 16.7 H
INR 1.33
pH 7.39 7.52 H
pCO2 38 25 L
pO2 124 H 151 H
HCO3 23.0 20.4 L
O2 Delivery Level vent
[2024-07-25] MEDS: NEURONTIN 100 MG PO ×3 (08:30→21:56)
[2024-07-25] MEDS: LIDOCAINE 4% PATCH 1 PATCH TOPICAL (08:30)
[2024-07-25] MEDS: PLAVIX 75 MG PO (08:30)
[2024-07-25] MEDS: ProAmatine 5 MG PO ×3 (08:31→18:00)
[2024-07-25] MEDS: MAGNESIUM OXIDE 500 MG PO ×2 (08:31→20:36)
[2024-07-25] MEDS: PROTONIX 40 MG PO (08:31)
[2024-07-25] MEDS: PACERONE PO (08:31)
[2024-07-25] MEDS: SENOKOT-S 1 TABLET PO ×2 (08:31→20:36)
[2024-07-25] MEDS: LOW STRENGTH ASPIRIN 81 MG PO (08:31)
[2024-07-25] MEDS: BACTROBAN 2% OINTMENT 1 APPLIC NASAL ×2 (08:31→20:37)
[2024-07-25 09:31] LABS: Glucose - Point of Care 99 mg/dl (70-99)
--- NOTE | 2024-07-25 09:58 | W.PN.CARDCBS ---
Addendum entered and electronically signed by Matthew Stringer MD 07/25/24 10:24:
I saw and examined the patient.
The TRUSS MAKER or PA's note was reviewed and I agree with the note.
Comment: General: Well developed, well nourished in NAD.
Neck: Supple, no JVD, HJR, carotids +2 B/L, no bruits bilaterally.
Heart: Non displaced PMI, RRR, no murmurs, No S3, S4, no rubs.
Lungs: Scattered rhonchi
Sternal dressings noted
Extremities: No clubbing, cyanosis or edema bilaterally.
Neuro: Grossly nonfocal, awake, alert and oriented x3.
Stable cardiology status postop. Remains in sinus rhythm. Discussed with nursing at bedside
Original Note:
Today's Communication / Plan
-
continue post op care
in SR
Impression / Plan
-
Assess:
Presentation with CP
Unstable angina/non-STEMI with peak trop 0.1
CAD
status post LAD/RCA stenting 2006/inferior wall MS
Multivessel CAD by cath 07/18/2024
Status post CABG x 3 in situ UNDERWOOD to LAD, ao to RSVG to OM, ao to RSVG to distal RCA, maze, JUAN clip 07/24/2024
Hypertension
Hyperlipidemia
Crohn's disease
Diverticulitis
Orthostasis
Paroxysmal atrial fibrillation declining anticoagulation
Gilbert's disease
Echo 04/26: EF 55 to 60%, mild AI, mildly dilated aortic root.
ECHO 07/19/2024: EF 55 to 60%, mild concentric LVH, mild MR, trace TR, PAP 15 to 20 mmHg, no significant change compared to prior
Plan:
-Patient presented with chest pain and ruled in for NSTEMI with peak troponin of 0.1. By cardiac catheterization 07/18/2024 patient had evidence of multivessel CAD including distal left main. Options were discussed with both patient and family and
he opted for CABG.
-Status post CABG x 3 in situ UNDERWOOD to LAD, ao to RSVG to OM, ao to RSVG to distal RCA, maze, JUAN clip 07/24/2024
-off pressors. BPs stable
-in SR on review of tele. EKG 07/25 SR with resolution of previously noted incomplete RBBB.
-He has history of paroxysmal atrial fibrillation, however has declined full anticoagulation. He has history of Crohn's disease. He is now status post left atrial appendage clip. Continue beta-chantale/amiodarone postop as indicated - BB held this
AM due to relative hypotension
-hgb 9.4. continue asa, plavix
-Continue statin
-OOB/IS as able
-d/w patient and son at bedside
Progress Note - Sales Program Coordinator
Subjective
Date of Service: July 25, 2024
Overall doing well. states he feels 'shitty'. Is surprised at his level of fatigue post op
Objective
Labs:
07/25/24 03:11
07/25/24 03:11
Labs
Hgb 9.4 g/dL (13.0-18.0) L 07/25/24 03:11
Hct 26.5 % (39.0-52.0) L 07/25/24 03:11
Plt Count 134 10^3/uL (130-400) D 07/25/24 03:11
PT 16.7 Sec (11.4-14.6) H 07/24/24 11:33
INR 1.33 07/24/24 11:33
APTT 178.1 Sec (23.4-35.0) H* 07/24/24 05:02
Sodium 134 mmol/L (135-145) L 07/25/24 03:11
Potassium 4.3 mmol/L (3.5-5.1) 07/25/24 03:11
BUN 23 mg/dl (9-20) H 07/25/24 03:11
Creatinine 0.9 mg/dL (0.7-1.3) 07/25/24 03:11
Glucose 97 mg/dl (70-99) 07/25/24 03:11
Vital Signs and I&O:
Vital Signs
Temp Pulse Resp BP Pulse Ox
98.1 F 68 16 108/47 97
07/25/24 08:53 07/25/24 09:10 07/25/24 08:53 07/25/24 09:00 07/25/24 09:18
Vital Signs
Temp Pulse Resp BP Pulse Ox
98.1 F 68 16 108/47 97
07/25/24 08:53 07/25/24 09:10 07/25/24 08:53 07/25/24 09:00 07/25/24 09:18
Intake & Output
07/23/24 07/24/24 07/25/24 07/26/24
07:59 07:59 07:59 07:59
Intake Total 560 / 560 110 / 110 2821.2 / 2821.2 380.6 / 380.6
Output Total 475 / 475 250 / 250 1320 / 1320 140 / 140
Balance 85 / 85 -140 / -140 1501.2 / 1501.2 240.6 / 240.6
Physical Exam
Physical Exam
GEN: No distress, awake, alert, oriented x3. sitting in chair
HEENT: supple, anicteric, mmm, eomi
LUNGS: Diminished BS at bases, no wheezes
CV: Reg, S1/S2, no murmur
ABD: soft, BS+, NT/ND
EXT: No cyanosis, clubbing. trace edema of B/L LE
NEURO: Gross non-focal
SKIN: Warm, pink, dry. No rash. Sternotomy dressing c/d/i. CTs in place
[2024-07-25 11:10] LABS: Glucose - Point of Care 102 mg/dl (70-99)
[2024-07-25] MEDS: NSS IV (11:48)
--- NOTE | 2024-07-25 12:10 | PTCARENOTE ---
Lt pleural chest tube removed. PT tolerated w/o issue. Insulin drip discontinued per protocol. VSS. Assessment otherwise unchanged per protocol
--- NOTE | 2024-07-25 13:01 | W.PN.ANS.POP ---
Anesthesia Post Operative
- Anesthesia Post Op Note
Vital Signs Stable-See Nursing Note: Yes
Airway Patent: Yes
Adequate Pain Control: Yes
Change in Mental Status: No
Current Postoperative Nausea & Vomiting: No
Anesthesia Complications: No
General Anesthetic Recall: No
Unplanned Admission: No
Post Op Hydration Adequate: Yes
[2024-07-25] MEDS: LASIX 40 MG IV (13:22)
[2024-07-25] MEDS: ROXICODONE 2.5 MG PO (13:22)
[2024-07-25] MEDS: FERRLECIT 110 MG IV (14:02)
[2024-07-25 16:59] LABS: Glucose - Point of Care 155 mg/dl (70-99)
--- NOTE | 2024-07-25 17:12 | PTCARENOTE ---
Assist x 2 oob to chair. Passing a lot of flatus this afternoon, Able to nap after pain medication given. VSS. Transitioned to room air. Assessment otherwise unchanged from prior.
--- NOTE | 2024-07-25 21:00 | PTCARENOTE ---
Assumed care of patient. Walking rounds completed. Pt AAOx3. Intermittently forgetful. Easily reoriented. SR on the tele monitor. HR 70-80s. BP stable. Palpable pulses throughout. No edema. Pt 100% on 2 L NC. Mediastinal CTx2 to -20 suction, no
airleak at this time, and output WNL. Pt c/o hard time taking a deep breath. Pt sat up in bed and felt relief. IS encouraged. Abdomen soft/nontender. +BS. Bellamy catheter C/D/I and draining yellow urine. Bellamy care completed. All surgical sites
stable. Right IJ cordis and PIVx2 C/D/I. Pt assisted OOB to the commode to attempt to have a BM. No BM. Pt repositioned back into bed. See worklist for full nursing assessment and interventions. Call boland within reach.
[2024-07-25] MEDS: LOPRESSOR 12.5 MG PO (21:06)
[2024-07-25] MEDS: LIPITOR 40 MG PO (21:56)
[2024-07-25] MEDS: PROSCAR 5 MG PO (21:56)
[2024-07-26] VITALS (23 sets, daily range): BP systolic 99–143; BP diastolic 48–65; PULSE 92; O2SAT 96–98; BMI 24.8
--- NOTE | 2024-07-26 00:19 | PTCARENOTE ---
Assessment unchanged. Pt SR on the tele monitor. HR 70s. BP 109/60. Pt 100% on [address] assessment unchanged. Bellamy catheter C/D/I and draining yellow urine. All surgical sites stable. Pt repositioned in bed. Call boland within reach.
[2024-07-26 03:43] LABS: Hematocrit 26.5 % (39.0-52.0); Hemoglobin 9.2 g/dL (13.0-18.0); Mean Corp Hgb Conc. 34.7 g/dL (33.0-37.0); Mean Corpuscular Hgb 31.2 pg (27.0-31.0); Mean Corpuscular Volume 89.8 fL (80.0-94.0); Mean Platelet Volume 10.3 fL (7.4-10.4); Platelet Count 139 10^3/uL (130-400); Red Blood Cell Count 2.95 10^6/uL (4.70-6.10); Red Cell Dist. Width 13.3 % (11.5-14.5); White Blood Cell Count 10.5 10^3/uL (4.8-10.8)
--- NOTE | 2024-07-26 03:46 | PTCARENOTE ---
No change in assessment. Pt Sinus on the tele monitor. HR 60s. BP 105/52. POX 100% on [address] assessment unchanged. Bellamy catheter C/D/I and draining yellow urine appropriately. Pt repositioned in bed. Denies pain. Labs drawn and sent. Call boland
within reach.
[2024-07-26 04:08] LABS: Blood Urea Nitrogen 34 mg/dl (9-20); Calcium 7.8 mg/dl (8.4-10.2); Carbon Dioxide 28 mmol/L (22-30); Chloride 100 mmol/L (98-107); Estimated Creatinine Clearance 49 ml/min; Glucose 127 mg/dl (70-99); Magnesium 2.2 mg/dl (1.6-2.3); Potassium 4.5 mmol/L (3.5-5.1); Sodium 133 mmol/L (135-145); eGFR > 60.00
--- NOTE | 2024-07-26 05:28 | W.PN.CT ---
Today's Communication / Plan
-
-pod #2
-no issues overnight
-pt was hypotensive postop, improved with IVF, started on Midodrine 5 tid. Amio on hold. BB was restarted
-? some non-conducted PACs on tele. No significant ernesto
-diuresed with 40 IV Lasix on 07/25 (UO 550/1945)
-CT outputs: 2 meds 95/395 in 12/24 hrs
-continue current meds
-encourage IS, OOB
Assessment / Plan
-
Assessment:
-S/P Sternotomy with aortic and right atrial cannulation/CABG x 3 (In situ UNDERWOOD to LAD, Ao to RSVG to OM, Ao to RSVG to distal RCA)/Endoscopic vein harvesting of right lower extremity/Left atrial maze [posterior wall isolation/ with encompass
clamp]/Left atrial appendage exclusion [35 mm clip], by Dr. Alcantar, 07/24/24, pod#2
-Severe 3v CAD/80-85% distal LM
-USA
-LVEF 55-60% preop, > 75% postop per intraop JULIANN
-NSTEMI (peak trop 0.111)
-Hx MT S/P with Cypher RORY to LAD and RCA, 2006
-LVEF 55-60%
-Mild MR
-HTN
-HLD
-Prediabetes (A1C 6.0)
-Paroxysmal atrial fibrillation (declining anticoagulation)
-Crohn's disease
-Gilbert's syndrome
-B12 deficiency
-Diverticulitis
-BPH (on Finasteride and Flomax @ home)
-Hx of orthostasis (likely from Flomax/Finasteride)
-S/P Appendectomy, 1971
-S/P Bowel resection, 1971
-S/P Cholecystectomy
-Acute postop blood loss/Anemia (stable without transfusion)
-Acute postop atelectasis
-Acute postop hypovolemia with subsequent hypervolemia
-Acute postop hyponatremia
Discussed patient care with: Nursing and Care Team
Subjective
Procedure
-S/P Sternotomy with aortic and right atrial cannulation/CABG x 3 (In situ UNDERWOOD to LAD, Ao to RSVG to OM, Ao to RSVG to distal RCA)/Endoscopic vein harvesting of right lower extremity/Left atrial maze [posterior wall isolation/ with encompass
clamp]/Left atrial appendage exclusion [35 mm clip], by Dr. Alcantar, 07/24/24
-
Date of Service: July 26, 2024
Objective Data
-
Lab Results
07/26/24 03:21
07/26/24 03:21
PT 16.7 Sec (11.4-14.6) H 07/24/24 11:33
INR 1.33 07/24/24 11:33
APTT 178.1 Sec (23.4-35.0) H* 07/24/24 05:02
Vital Signs
Vital Signs
Temp Pulse Resp BP Pulse Ox
97.9 F 67 20 105/52 100
07/26/24 03:00 07/26/24 03:15 07/26/24 03:00 07/26/24 03:00 07/26/24 03:00
CT Intake/Output/Weight
07/25/24 07/25/24 07/26/24
06:59 18:59 06:59
Intake Total 301.8 / 2821.2 1101.6 / 1181.6 80 / 1181.6
Output Total 555 / 1320 1705 / 2350 645 / 2350
Balance -253.2 / 1501.2 -603.4 / -1168.4 -565 / -1168.4
SaO2: 100
Physical Exam
-
General: Awake and AOx3 (very hard of hearing)
Cardiovascular: Regular rate & rhythm, No Murmurs and Rub
Respiratory: Decreased Breath Sounds
Sternum: Stable
Incision: Clean, Dry and Intact
Extremities: No Edema
Abdomen: soft, nontender, nondistended, + bowel sounds
Data Reviewed
-
Lab Results: Results Reviewed
Medications: Active Meds Reviewed
Chest X-Ray: Report Reviewed and Image Reviewed
ECG: Report Reviewed and Image Reviewed
[2024-07-26] MEDS: TYLENOL 1000 MG PO ×3 (06:22→22:53)
--- NOTE | 2024-07-26 08:00 | PTCARENOTE ---
Assumed care of patient from dairy husbandry worker RN. AAO x 3 sitting up in the chair. Denies complaint this am. SR w/ first degree AV block on monitor. Epicardial wire insulated. Room air 94%, Using IS to 1250. Occasional BINDING DYER harsh cough. Chest tubes
x 2 to - 20 cm suction. No air leak or crepitus noted. Abdomen soft and non tender, appetite good, passing flatus. Bellamy draining clear jose alejandro urine. Bellamy care preformed. Surgical sites well approximated w/ surgical adhesive. No overt edema
appreciated. Pulses palpable. Plan for day discussed.
[2024-07-26] MEDS: NEURONTIN 100 MG PO ×3 (08:25→22:53)
[2024-07-26] MEDS: PROTONIX 40 MG PO (08:25)
[2024-07-26] MEDS: MAGNESIUM OXIDE 500 MG PO ×2 (08:25→19:33)
[2024-07-26] MEDS: PLAVIX 75 MG PO (08:25)
[2024-07-26] MEDS: FLEXERIL 5 MG PO (08:25)
[2024-07-26] MEDS: SENOKOT-S 1 TABLET PO ×2 (08:25→19:33)
[2024-07-26] MEDS: LOPRESSOR 12.5 MG PO ×2 (08:25→19:32)
[2024-07-26] MEDS: ProAmatine 5 MG PO (08:25)
[2024-07-26] MEDS: LOW STRENGTH ASPIRIN 81 MG PO (08:25)
[2024-07-26] MEDS: LIDOCAINE 4% PATCH TOPICAL (08:26)
[2024-07-26] MEDS: BACTROBAN 2% OINTMENT 1 APPLIC NASAL ×2 (08:26→19:33)
--- NOTE | 2024-07-26 08:47 | W.PN.CARDCBS ---
Addendum entered and electronically signed by Kole Rodriguez DO 07/26/24 18:32:
I saw and examined the patient.
The Catering Convention Services Manager's note was reviewed and I agree with the note.
Comment:
Plan:
Cont post op care
Continues to do well post CABG. HR and bp stable.
Remains in sinus
Cont DAPT
Cont statin
Remains in sinus
Original Note:
Today's Communication / Plan
-
Continue post op care
Impression / Plan
-
PCP: Bin Partida
Instrument Designer: Dr. Eubanks
Impression:
Presented with CP
Unstable angina/NSTEMI with peak trop 0.1
CAD
s/p inferior wall CO, LAD/RCA PCI 2006
s/p CABG x3 (in situ UNDERWOOD to LAD, ao to RSVG to OM, ao to RSVG to distal RCA) 07/24/2024
s/p MAZE, JUAN clip 07/24/2024
Hypertension
Hyperlipidemia
Crohn's disease
Diverticulitis
Orthostasis
Paroxysmal atrial fibrillation declining anticoagulation
Gilbert's disease
Echo 04/2024: EF 55 to 60%, mild AI, mildly dilated aortic root.
ECHO 07/19/2024: EF 55 to 60%, mild concentric LVH, mild MR, trace TR, PAP 15 to 20 mmHg, no significant change compared to prior
Plan:
-Presented with chest pain and ruled in for NSTEMI. Troponin peaked at 0.1. Underwent LHC 07/18 which revealed MV CAD involving the left main.
-Underwent CABG x 3 (in situ UNDERWOOD to LAD, ao to RSVG to OM, ao to RSVG to distal RCA), MAZE, and JUAN clip 07/24/2024. POD #2.
-Doing well. No issues overnight.
-Remains in SR on review of telemetry. He has known h/o paroxysmal atrial fibrillation, however has declined full anticoagulation.
-Continue aspirin, plavix. Hgb 9.2, continue to follow.
-Hypotension noted post-op. BPs improved/stable w/ midodrine 5mg TID.
-Continue metoprolol.
-OOB/IS as able
-Continue lipitor 40mg daily. LDL 37.
Progress Note - Instrument Designer
Subjective
Date of Service: July 26, 2024
No complaints other than occasional dizziness.
Objective
Labs:
07/26/24 03:21
07/26/24 03:21
Labs
Hgb 9.2 g/dL (13.0-18.0) L 07/26/24 03:21
Hct 26.5 % (39.0-52.0) L 07/26/24 03:21
Plt Count 139 10^3/uL (130-400) 07/26/24 03:21
PT 16.7 Sec (11.4-14.6) H 07/24/24 11:33
INR 1.33 07/24/24 11:33
APTT 178.1 Sec (23.4-35.0) H* 07/24/24 05:02
Sodium 133 mmol/L (135-145) L 07/26/24 03:21
Potassium 4.5 mmol/L (3.5-5.1) 07/26/24 03:21
BUN 34 mg/dl (9-20) H 07/26/24 03:21
Creatinine 1.0 mg/dL (0.7-1.3) 07/26/24 03:21
Glucose 127 mg/dl (70-99) H 07/26/24 03:21
Vital Signs and I&O:
Vital Signs
Temp Pulse Resp BP Pulse Ox
97.9 F 78 20 109/60 94
07/26/24 08:28 07/26/24 08:35 07/26/24 03:00 07/26/24 08:25 07/26/24 08:37
Vital Signs
Temp Pulse Resp BP Pulse Ox
97.9 F 78 20 109/60 94
07/26/24 08:28 07/26/24 08:35 07/26/24 03:00 07/26/24 08:25 07/26/24 08:37
Intake & Output
07/24/24 07/25/24 07/26/24 07/27/24
06:59 06:59 06:59 06:59
Intake Total 110 / 110 2821.2 / 2821.2 1211.6 / 1211.6 250 / 250
Output Total 250 / 250 1320 / 1320 2520 / 2520 50 / 50
Balance -140 / -140 1501.2 / 1501.2 -1308.4 / -1308.4 200 / 200
Physical Exam
Physical Exam
GEN: No distress, awake, alert, oriented x3. sitting in chair
HEENT: supple, anicteric, mmm, eomi
LUNGS: Diminished BS at bases, no wheezes
CV: Reg, S1/S2, no murmur
EXT: No cyanosis, clubbing, or edema
NEURO: Gross non-focal
SKIN: Warm, pink, dry. No rash. Sternotomy dressing c/d/i. CTs in place
--- NOTE | 2024-07-26 10:02 | W.PN.UPDATE ---
Update Note
Progress Note Update
Patient has not required pacing wires. There has been no significant bradycardia, arrhythmias, complete heart block, or significant pauses.
Site was cleansed with CHG thoroughly
1 ventricular epicardial pacing wires were pulled. Bedrest x1 hour and VS [id number] x 4.
if CT output is minimal; will plan to remove mediastinal CT
Katherine LOPEZ
Cardiac Surgery
[2024-07-26] MEDS: LASIX 40 MG IV (10:47)
--- NOTE | 2024-07-26 11:34 | PTCARENOTE ---
Epicardial wire removed by CT PADDER CUSHION, VS q 15 minutes per protocol x 1 hour. Chest tubes then removed , pt tolerated w/o issue. Bellamy catheter removed also at this time. Able to void immediately after. VSS. Assessment unchanged from prior.
[2024-07-26] MEDS: NSS IV (12:35)
[2024-07-26] MEDS: FERRLECIT 110 MG IV (13:42)
--- NOTE | 2024-07-26 15:38 | CM ---
Chart reviewed. Patient is independent of ADLS, lives with his significant other, 2 STH, 1 RASHIDA, 0 DME. Patient's son lives across the street. Plan is for the patient to return home with CT Transitional RN. CM to follow
--- NOTE | 2024-07-26 16:36 | PTCARENOTE ---
Napping during rounds, VSS. Denies pain. Voiding in urinal w/o issue. Assessment unchanged from prior.
--- NOTE | 2024-07-26 17:11 | PTCARENOTE ---
Ambulated entire loop around unit w/o issue. gait steady and pace speedy. Discussion with pt and family about help at home on discharge.
[2024-07-26 17:31] LABS: Glucose - Point of Care 147 mg/dl (70-99)
[2024-07-26] MEDS: ProAmatine 2.5 MG PO (17:47)
--- NOTE | 2024-07-26 19:57 | PTCARENOTE ---
Assumed care of patient at 1900. Patient found resting in bed at time of assessment. Patient is AOx4, follows commands appropriately, moves all extremities, reports being QUINAULT. Lung sounds are diminished in the bases, saO2 92% on RA, patient has
harsh, infrequent productive cough. Heart sounds are audible, patient is SR on the monitor, there is a rub present on auscultation, no observable edema with normal palpable pulses. Patient has active BS throughout all four quadrants, patient reports
+flatus, and is voiding in urinal. There is a sternal incision approx with surg adhesive LOOP MACHINE OPERATOR, ABD dressing over CT wounds CDI, R groin puncture approx with surg adhesive LOOP MACHINE OPERATOR, and RLE incision approx with surg adhesive WILL. Patien thas R IJ cordis
receiving KVO, R arm 20G PIV, L arm 20 G PIV. No c/o pain. Call boland within reach.
[2024-07-26] MEDS: PROSCAR 5 MG PO (22:52)
[2024-07-26] MEDS: PACERONE 200 MG PO (22:52)
[2024-07-26] MEDS: LIPITOR 40 MG PO (22:52)
[2024-07-26] MEDS: QUESTRAN PO (22:53)
[2024-07-27] VITALS (9 sets, daily range): BP systolic 108–139; BP diastolic 53–65; PULSE 80; O2SAT 96–98; BMI 24.7
--- NOTE | 2024-07-27 | PTCARENOTE ---
Patient reassessed. VSS. Patient with multiple attempts to at BM only +flatus at this time. Remains SR on the monitor. Pain managed with scheduled medications. Call boland within reach.
[2024-07-27 00:07] LABS: Glucose - Point of Care 142 mg/dl (70-99)
[2024-07-27 02:33] LABS: Hematocrit 28.2 % (39.0-52.0); Hemoglobin 9.7 g/dL (13.0-18.0); Mean Corp Hgb Conc. 34.4 g/dL (33.0-37.0); Mean Corpuscular Hgb 30.8 pg (27.0-31.0); Mean Corpuscular Volume 89.5 fL (80.0-94.0); Mean Platelet Volume 10.3 fL (7.4-10.4); Platelet Count 154 10^3/uL (130-400); Red Blood Cell Count 3.15 10^6/uL (4.70-6.10); Red Cell Dist. Width 13.5 % (11.5-14.5); White Blood Cell Count 9.2 10^3/uL (4.8-10.8)
[2024-07-27 02:48] LABS: Blood Urea Nitrogen 27 mg/dl (9-20); Carbon Dioxide 30 mmol/L (22-30); Chloride 99 mmol/L (98-107); Estimated Creatinine Clearance 54 ml/min; Glucose 120 mg/dl (70-99); Magnesium 2.1 mg/dl (1.6-2.3); Sodium 134 mmol/L (135-145); eGFR > 60.00
--- NOTE | 2024-07-27 04:25 | PTCARENOTE ---
Patient with successful small BM. VSS. AM hygiene care provided. AM labs obtained. Call boland within reach.
[2024-07-27] MEDS: TYLENOL 1000 MG PO ×3 (06:13→23:00)
--- NOTE | 2024-07-27 07:02 | W.PN.CT ---
Today's Communication / Plan
-
-pod #3
-no issues overnight, doing well
-hypotension improving, weaning off Midodrine
-diuresed with 40 IV Lasix on 07/26
-current meds (ASA, Plavix, Lipitor, Midodrine 2.5 bid, Amio, Lopressor, Protonix, iv iron)
-encourage IS, OOB
Assessment / Plan
-
Assessment:
-S/P Sternotomy with aortic and right atrial cannulation/CABG x 3 (In situ UNDERWOOD to LAD, Ao to RSVG to OM, Ao to RSVG to distal RCA)/Endoscopic vein harvesting of right lower extremity/Left atrial maze [posterior wall isolation/ with encompass
clamp]/Left atrial appendage exclusion [35 mm clip], by Dr. Alcantar, 07/24/24, pod#3
-Severe 3v CAD/80-85% distal LM
-USA
-LVEF 55-60% preop, > 75% postop per intraop JULIANN
-NSTEMI (peak trop 0.111)
-Hx [place] S/P with Cypher RORY to LAD and RCA, 2006
-LVEF 55-60%
-Mild MR
-HTN
-HLD
-Prediabetes (A1C 6.0)
-Paroxysmal atrial fibrillation (declining anticoagulation)
-Crohn's disease
-Gilbert's syndrome
-B12 deficiency
-Diverticulitis
-BPH (on Finasteride and Flomax @ home)
-Hx of orthostasis (likely from Flomax/Finasteride)
-S/P Appendectomy, 1971
-S/P Bowel resection, 1971
-S/P Cholecystectomy
-Acute postop blood loss/Anemia (stable without transfusion)
-Acute postop atelectasis
-Acute postop hypovolemia with subsequent hypervolemia
-Acute postop hyponatremia
Discussed patient care with: Nursing and Care Team
Subjective
Procedure
-S/P Sternotomy with aortic and right atrial cannulation/CABG x 3 (In situ UNDERWOOD to LAD, Ao to RSVG to OM, Ao to RSVG to distal RCA)/Endoscopic vein harvesting of right lower extremity/Left atrial maze [posterior wall isolation/ with encompass
clamp]/Left atrial appendage exclusion [35 mm clip], by Dr. Alcantar, 07/24/24
-
Date of Service: July 27, 2024
Objective Data
-
PT 16.7 Sec (11.4-14.6) H 07/24/24 11:33
INR 1.33 07/24/24 11:33
APTT 178.1 Sec (23.4-35.0) H* 07/24/24 05:02
Vital Signs
Vital Signs
Temp Pulse Resp BP Pulse Ox
98.0 F 76 20 118/58 94
07/26/24 23:00 07/27/24 00:40 07/26/24 23:00 07/26/24 22:49 07/26/24 23:00
CT Intake/Output/Weight
07/26/24 07/26/24 07/27/24
06:59 18:59 06:59
Intake Total 110 / 1211.6 410 / 490 80 / 490
Output Total 815 / 2520 1550 / 1850 300 / 1850
Balance -705 / -1308.4 -1140 / -1360 -220 / -1360
SaO2: 94
Physical Exam
-
General: Awake and AOx3 (very hard of hearing)
Cardiovascular: Regular rate & rhythm, No Murmurs and Rub
Respiratory: Decreased Breath Sounds
Sternum: Stable
Incision: Clean, Dry and Intact
Abdomen: soft, nontender, nondistended, + bowel sounds
Extremities: No Edema
Data Reviewed
-
Lab Results: Results Reviewed
Medications: Active Meds Reviewed
Chest X-Ray: Report Reviewed and Image Reviewed
ECG: Report Reviewed and Image Reviewed
[2024-07-27] MEDS: NEURONTIN 100 MG PO ×3 (08:39→23:00)
[2024-07-27] MEDS: LOPRESSOR 12.5 MG PO ×2 (08:39→20:53)
[2024-07-27] MEDS: LIDOCAINE 4% PATCH TOPICAL (08:40)
[2024-07-27] MEDS: PLAVIX 75 MG PO (08:40)
[2024-07-27] MEDS: MAGNESIUM OXIDE 500 MG PO ×2 (08:40→20:53)
[2024-07-27] MEDS: PROTONIX 40 MG PO (08:40)
[2024-07-27] MEDS: LOW STRENGTH ASPIRIN 81 MG PO (08:40)
[2024-07-27] MEDS: PACERONE 200 MG PO ×3 (08:40→23:00)
[2024-07-27] MEDS: BACTROBAN 2% OINTMENT 1 APPLIC NASAL ×2 (08:41→20:52)
[2024-07-27] MEDS: SENOKOT-S PO (08:41)
[2024-07-27] MEDS: ProAmatine PO (08:46)
--- NOTE | 2024-07-27 09:08 | PTCARENOTE ---
Assumed care of patient from film processing shift supervisor RN,. AAO x 3 sitting up in chair, denies complaints. NSR on monitor. Room air 93% Using IS to 1500. Occasional productive cough. Abdomen soft , nontender, able to have a large BM this am. Voiding w/o
issue. Pulses palpable. Surgical sites well approximated. Plan for day discussed.
--- NOTE | 2024-07-27 11:31 | CM ---
Chart reviewed. Patient is independent of ADLS, lives alone [facility], 0 [facility]. Patient's son also lives across the street. Plan is for the patient to return home with CT Transitional RN. CM to follow
[2024-07-27] MEDS: NSS IV (13:01)
--- NOTE | 2024-07-27 13:01 | PTCARENOTE ---
Ambulating in hallway, gait steady. Rt IJ cordis removed. VSS Assessment unchanged from prior
--- NOTE | 2024-07-27 14:55 | W.PN.CARDCBS ---
Addendum entered and electronically signed by Andreas Thakur MD 07/27/24 17:30:
I saw and examined the patient.
The Underwriting Director's note was reviewed and I agree with the note.
Comment: Briefly, 84-year-old man with past medical history of CAD and prior PCI presenting with unstable angina now s/p CABG x3 07/24/24
Doing well post-op
Appears euvolemic on exam
NSR on tele
Agree with current cardiac meds- ASA/plavix, statin, BB
Recommended and discussed cardiac rehab
Discharge planning
Original Note:
Today's Communication / Plan
-
Continue post op care
Impression / Plan
-
PCP: Bin Partida
Electronic Organ Technician: Dr. Eubanks
Impression:
Presented with CP
Unstable angina/NSTEMI with peak trop 0.1
CAD
s/p inferior wall MD, LAD/RCA PCI 2006
s/p CABG x3 (in situ UNDERWOOD to LAD, ao to RSVG to OM, ao to RSVG to distal RCA) 07/24/2024
s/p MAZE, JUAN clip 07/24/2024
Hypertension
Hyperlipidemia
Crohn's disease
Diverticulitis
Orthostasis
Paroxysmal atrial fibrillation declining anticoagulation
Gilbert's disease
Echo 04/2024: EF 55 to 60%, mild AI, mildly dilated aortic root.
ECHO 07/19/2024: EF 55 to 60%, mild concentric LVH, mild MR, trace TR, PAP 15 to 20 mmHg, no significant change compared to prior
Plan:
-Presented with chest pain and ruled in for NSTEMI. Troponin peaked at 0.1. Underwent LHC 07/18 which revealed MV CAD involving the left main.
-Underwent CABG x 3 (in situ UNDERWOOD to LAD, ao to RSVG to OM, ao to RSVG to distal RCA), MAZE, and JUAN clip 07/24/2024. POD #3.
-Continues to do well. Ambulating without SOB or dizziness.
-Remains in SR on review of telemetry. He has known h/o paroxysmal atrial fibrillation, however has previously declined full anticoagulation.
-Continue aspirin, plavix. Hgb stable at 9.7.
-Hypotension noted post op and he was started on midodrine, but BP has improved overnight and midodrine now stopped.
-Continue metoprolol.
-Continue lipitor 40mg daily. LDL 37.
-OOB/IS encouraged
Progress Note - Electronic Organ Technician
Subjective
Date of Service: July 27, 2024
No complaints. Feeling well.
Objective
Labs:
07/27/24 02:20
07/27/24 02:20
Labs
Hgb 9.7 g/dL (13.0-18.0) L 07/27/24 02:20
Hct 28.2 % (39.0-52.0) L 07/27/24 02:20
Plt Count 154 10^3/uL (130-400) 07/27/24 02:20
PT 16.7 Sec (11.4-14.6) H 07/24/24 11:33
INR 1.33 07/24/24 11:33
APTT 178.1 Sec (23.4-35.0) H* 07/24/24 05:02
Sodium 134 mmol/L (135-145) L 07/27/24 02:20
Potassium 4.0 mmol/L (3.5-5.1) 07/27/24 02:20
BUN 27 mg/dl (9-20) H 07/27/24 02:20
Creatinine 0.9 mg/dL (0.7-1.3) 07/27/24 02:20
Glucose 120 mg/dl (70-99) H 07/27/24 02:20
Vital Signs and I&O:
Vital Signs
Temp Pulse Resp BP Pulse Ox
97.8 F 69 18 139/64 94
07/27/24 12:00 07/27/24 13:05 07/27/24 12:00 07/27/24 11:46 07/27/24 12:00
Vital Signs
Temp Pulse Resp BP Pulse Ox
97.8 F 69 18 139/64 94
07/27/24 12:00 07/27/24 13:05 07/27/24 12:00 07/27/24 11:46 07/27/24 12:00
Intake & Output
07/25/24 07/26/24 07/27/24 07/28/24
06:59 06:59 06:59 06:59
Intake Total 2821.2 / 2821.2 1211.6 / 1211.6 490 / 490 750 / 750
Output Total 1320 / 1320 2520 / 2520 1850 / 1850
Balance 1501.2 / 1501.2 -1308.4 / -1308.4 -1360 / -1360 750 / 750
Physical Exam
Physical Exam
GEN: No distress, awake, alert, oriented x3
HEENT: supple, anicteric, mmm, eomi
LUNGS: CTA b/l, no wheezes
CV: Reg, S1/S2, no murmur
EXT: No cyanosis, clubbing, or edema
NEURO: Gross non-focal
SKIN: Warm, pink, dry. No rash. Sternotomy dressing c/d/i.
[2024-07-27] MEDS: FERRLECIT 110 MG IV (16:15)
--- NOTE | 2024-07-27 16:51 | PTCARENOTE ---
AMbulating at singh. Denies pain. VSS. Assessment unchanged from prior.
--- NOTE | 2024-07-27 20:15 | PTCARENOTE ---
Patient received OOB in chair. Patient A+A+Ox3. No neurological deficits noted. Patient assisted to bathroom then to bed with minimal assistance. No c/o headache, dizziness or lightheadedness. Steady gait. Room air. SpO2 97%. Sinus Rhythm
with First Degree AV Block. Heart rate 70's. No c/o chest pain, pressure or discomfort. Voiding. Positive BM. Sternal incision intact - Surgical adhesive - Open to air. Chest tube dressing. Right groin site intact - Open to air - Area
ecchymotic. Right knee incision intact - Surgical adhesive - Open to air. Positive, palpable pulses. No c/o back or flank pain. Assessment as documented.
[2024-07-27] MEDS: SENOKOT-S 1 TABLET PO (20:53)
[2024-07-27] MEDS: LIPITOR 40 MG PO (23:00)
[2024-07-27] MEDS: PROSCAR 5 MG PO (23:01)
[2024-07-27] MEDS: QUESTRAN PO ×2 (23:02→23:07)
[2024-07-28] VITALS (8 sets, daily range): BP systolic 106–160; BP diastolic 54–65; PULSE 67; O2SAT 98; BMI 24.7
--- NOTE | 2024-07-28 | PTCARENOTE ---
Patient given CHG bath and linens changed. Chest tube dressing removed - Three sites open to air. Patient ambulated to bathroom then back to bed. Patient sleeping without difficulty. No c/o pain or discomfort. Assessment/Interventions as
documented.
--- NOTE | 2024-07-28 04:30 | PTCARENOTE ---
Patient A+A+Ox3. No neurological deficits noted. Patient with no c/o pain or discomfort. Resting in bed. AM lab work collected and sent. Patient back to sleep. Assessment/Interventions as documented.
[2024-07-28 04:40] LABS: Hemoglobin 9.9 g/dL (13.0-18.0); Mean Corp Hgb Conc. 34.1 g/dL (33.0-37.0); Mean Corpuscular Volume 90.9 fL (80.0-94.0); Mean Platelet Volume 10.2 fL (7.4-10.4); Platelet Count 174 10^3/uL (130-400); Red Blood Cell Count 3.19 10^6/uL (4.70-6.10); Red Cell Dist. Width 13.5 % (11.5-14.5); White Blood Cell Count 7.2 10^3/uL (4.8-10.8)
[2024-07-28 05:03] LABS: Blood Urea Nitrogen 27 mg/dl (9-20); Calcium 8.4 mg/dl (8.4-10.2); Carbon Dioxide 30 mmol/L (22-30); Chloride 99 mmol/L (98-107); Estimated Creatinine Clearance 49 ml/min; Glucose 111 mg/dl (70-99); Magnesium 2.3 mg/dl (1.6-2.3); Potassium 4.8 mmol/L (3.5-5.1); Sodium 134 mmol/L (135-145); eGFR > 60.00
[2024-07-28] MEDS: TYLENOL PO (06:00)
--- NOTE | 2024-07-28 06:33 | W.PN.CT ---
Today's Communication / Plan
-
-pod #4
-no issues overnight, wants to go home
-follow 2-v CXR
-current meds (ASA, Plavix, Lipitor, Amio, Lopressor, Protonix, iv iron)
-encourage IS, OOB
Assessment / Plan
-
Assessment:
-S/P Sternotomy with aortic and right atrial cannulation/CABG x 3 (In situ UNDERWOOD to LAD, Ao to RSVG to OM, Ao to RSVG to distal RCA)/Endoscopic vein harvesting of right lower extremity/Left atrial maze [posterior wall isolation/ with encompass
clamp]/Left atrial appendage exclusion [35 mm clip], by Dr. Alcantar, 07/24/24, pod#4
-Severe 3v CAD/80-85% distal LM
-USA
-LVEF 55-60% preop, > 75% postop per intraop JULIANN
-NSTEMI (peak trop 0.111)
-Hx [place] S/P with Cypher RORY to LAD and RCA, 2006
-LVEF 55-60%
-Mild MR
-HTN
-HLD
-Prediabetes (A1C 6.0)
-Paroxysmal atrial fibrillation (declining anticoagulation)
-Crohn's disease
-Gilbert's syndrome
-B12 deficiency
-Diverticulitis
-BPH (on Finasteride and Flomax @ home)
-Hx of orthostasis (likely from Flomax/Finasteride)
-S/P Appendectomy, 1971
-S/P Bowel resection, 1971
-S/P Cholecystectomy
-Acute postop blood loss/Anemia (stable without transfusion)
-Acute postop atelectasis
-Acute postop hypovolemia with subsequent hypervolemia
-Acute postop hyponatremia
Discussed patient care with: Care Team
Subjective
Procedure
-S/P Sternotomy with aortic and right atrial cannulation/CABG x 3 (In situ UNDERWOOD to LAD, Ao to RSVG to OM, Ao to RSVG to distal RCA)/Endoscopic vein harvesting of right lower extremity/Left atrial maze [posterior wall isolation/ with encompass
clamp]/Left atrial appendage exclusion [35 mm clip], by Dr. Alcantar, 07/24/24
-
Date of Service: July 28, 2024
Objective Data
-
Lab Results
07/28/24 04:15
07/28/24 04:15
PT 16.7 Sec (11.4-14.6) H 07/24/24 11:33
INR 1.33 07/24/24 11:33
APTT 178.1 Sec (23.4-35.0) H* 07/24/24 05:02
Vital Signs
Vital Signs
Temp Pulse Resp BP Pulse Ox
98.3 F 65 16 109/54 97
07/28/24 04:15 07/28/24 04:25 07/28/24 04:15 07/28/24 04:15 07/28/24 04:15
CT Intake/Output/Weight
07/27/24 07/27/24 07/28/24
06:59 18:59 06:59
Intake Total 80 / 490 750 / 990 240 / 990
Output Total 300 / 1850
Balance -220 / -1360 750 / 990 240 / 990
SaO2: 97
Physical Exam
-
General: Awake and AOx3
Cardiovascular: Regular rate & rhythm, Murmur and Rub
Respiratory: Decreased Breath Sounds
Sternum: Stable
Incision: Clean, Dry and Intact
Extremities: No Edema
Data Reviewed
-
Lab Results: Results Reviewed
Medications: Active Meds Reviewed
Chest X-Ray: Report Reviewed and Image Reviewed
ECG: Report Reviewed and Image Reviewed
--- NOTE | 2024-07-28 08:00 | PTCARENOTE ---
Assumed care of the patient at 0700. Patient OOB to chair, ambulating in room PRN. AOx3, pleasant, [place]. SR on the monitor rates 80's, no edema, pulses palpable. RA, IS encouraged, lungs dim at the bases, occasional productive cough. Patient B/B
voiding without difficulty. All surgical sites intact. PIVx2 in LAC/RA. Call boland within reach, questions encouraged, patient in agreement with plan of care. Assessment of needs ongoing, see nursing worklist for additional intervention details.
[2024-07-28] MEDS: BACTROBAN 2% OINTMENT 1 APPLIC NASAL (08:25)
[2024-07-28] MEDS: LIDOCAINE 4% PATCH TOPICAL (08:25)
[2024-07-28] MEDS: SENOKOT-S 1 TABLET PO (08:26)
[2024-07-28] MEDS: LOW STRENGTH ASPIRIN 81 MG PO (08:26)
[2024-07-28] MEDS: LOPRESSOR 12.5 MG PO (08:26)
[2024-07-28] MEDS: PLAVIX 75 MG PO (08:26)
[2024-07-28] MEDS: NEURONTIN 100 MG PO (08:26)
[2024-07-28] MEDS: MAGNESIUM OXIDE 500 MG PO (08:26)
[2024-07-28] MEDS: PACERONE 200 MG PO (08:26)
[2024-07-28] MEDS: PROTONIX 40 MG PO (08:26)
[2024-07-28] MEDS: NSS IV (08:27)
--- NOTE | 2024-07-28 11:56 | W.DCSUMMARY ---
Discharge Summary
Discharge Data
Date of Admission: 07/17/24
Date of Discharge: 07/28/24
-
Pending Results: No
Hospital Course
Primary care physician: JOHN Early
Outpatient welding machine operator electro gas: Abdulaziz Kay MD
Inpatient consultants: Cardiology, pulmonary intensive care
Procedures:
1. Coronary artery bypass grafting x 3 with left internal mammary artery to left anterior descending, saphenous vein graft obtuse marginal, saphenous vein graft to distal right coronary artery, encompass maze, left atrial appendage exclusion, DrTalia
Cristofer Alcantar
Primary Diagnosis:
1. Multivessel coronary artery disease
Secondary Diagnoses:
1. Acute postoperative blood loss anemia
2. Acute postoperative atelectasis
3. Acute postoperative hypovolemia
4. Acute postoperative hyponatremia
5. Unstable angina
6. Non-ST elevated myocardial infarction
7. Mild mitral digitation
8. Hypertension
9. Hyperlipidemia
10. Prediabetes
11. Crohn's disease
12. Paroxysmal atrial fibrillation (declines anticoagulation)
13. Gilbert's syndrome
14. Benign prostatic hyperplasia
15. Diverticulitis
16. Vitamin B12 deficiency
HPI:
Patient is an 84-year-old male with PMH significant for CAD s/p inferior wall ID with Cypher stenting of the LAD and RCA in 2006, HTN, HLD, paroxysmal atrial fibrillation (declining anticoagulation), Crohn's disease, Gilbert's disease (baseline
1.9-2.6), diverticulitis, B12 deficiency, and mildly dilated aortic aneurysm 4.2 cm, who presents to [facility] emergency department on 07/17/2024 with chief complaints of chest pain.
Patient has had 2 episodes of chest pain within the past week. 1 episode was with exertion while shoveling snow. His most recent episode occurred at rest and was so severe it prompted him to seek medical attention via the emergency department.
Patient admitted to associated SOB, PERRY, and palpitations.
Upon presentation to the emergency department patient was ruled in for non-ST elevated myocardial infarction with peak troponin of 0.111. EKG revealed sinus rhythm (72 bpm) with PVCs. Patient was admitted for further workup. He was initiated on a
heparin drip for anticoagulation. And subsequent cardiac catheterization on 07/18/2024 revealed multivessel CAD. Please refer to the summary below:
Cardiac Catheterization: 07/18/24 [place]
LM: 80-85% distal
LAD: Proximal and distal LAD stents are patent. Ostial LAD with 85-90% stenosis from distal LM.
D1: 70-80% ostial
LCx: 70 % ostial
OM: 60-70% w/ TIFFANIE III flow in distal vessel
RCA: 80-85% mid, cannot rule out thrombus
CT surgery was consulted for coronary artery revascularization evaluation.
Hospital course:
The patient was admitted following cardiac catheterization and ruled in for non-ST elevated myocardial infarction. We were consulted for bypass surgery evaluation. Patient was agreeable to this and ultimately underwent the surgery on July 24,
[address] Cristofer Alcantar. Please refer to his separately dictated operative report for complete details. Postoperatively patient progressed well. He was weaned from vasoactive drips by the morning of postop day 1. He required some fluid
resuscitation following his surgery. He was extubated per usual protocol around 4 PM.
Postoperative day #1: Patient remains off vasoactive drips. Midodrine was added secondary to orthostasis. Patient was transferred to the telemetry phase. He was gently diuresed in the afternoon with good response. He began working with physical
therapy and Occupational Therapy.
Postoperative day #2: Chest tubes and pacing wires were removed. Midodrine was weaned down and beta-blockers were ultimately started. Patient did receive a small dose of intravenous Lasix.
Postoperative #3: Blood pressure remained stable. Midodrine was discontinued. There were no other new significant changes to the patient's postoperative course
Postoperative day #4: The patient was cleared for discharge to home. Discharge structure reviewed in detail with the patient and his questions were answered to his satisfaction prior to him leaving today.
Home medication changes: Simvastatin was changed to atorvastatin secondary to guideline directed therapy following CABG.
Please note the past majority of this dictation was created using voice recognition software. Please excuse any phonetic or grammatical errors as a result.
Discharge Plan
-
Patient Disposition: Home (Routine Discharge)
Discharge Diagnosis/Procedures: -Status post sternotomy with aortic and right atrial cannulation/coronary bypass grafting x 3 (In situ left internal mammary artery to left anterior descending, saphenous vein graft to obtuse marginal, saphenous vein
graft to distal right coronary artery)/Endoscopic vein harvesting of right lower extremity/Left atrial maze [posterior wall isolation/ with encompass clamp]/Left atrial appendage exclusion [35 mm clip], by Dr. Alcantar, 07/24/24
-Multivessel coronary artery disease
-Unstable angina
-Left ventricular ejection fraction 55-60% preop, > 75% postop per intraop transesophageal echocardiogram
-Non-ST elevated myocardial infarction (peak trop 0.111)
-History of myocardial infarction status post with Cypher drug-eluting stent to left anterior descending and right coronary artery, 2006
-Mild mitral digitation
-Hypertension
-Hyperlipidemia
-Prediabetes (A1C 6.0)
-Paroxysmal atrial fibrillation (declining anticoagulation)
-Crohn's disease
-Gilbert's syndrome
-B12 deficiency
-Diverticulitis
-Benign prostatic hyperplasia (on Finasteride and Flomax @ home)
-History of orthostasis (likely from Flomax/Finasteride)
-History appendectomy, 1971
-History bowel resection, 1971
-History cholecystectomy
-Acute postoperative blood loss/Anemia (stable without transfusion)
-Acute postoperative atelectasis
-Acute postoperative hypovolemia with subsequent hypervolemia
-Acute postoperative hyponatremia
Condition: Good
Diet: Low Cholesterol and Low Sodium
Activity: No strenuous activity
Driving Restrictions: Not until seen by your Dr
Bathing Restrictions: OK to Shower
Other Services: Cardiac Rehab
Specialty Instructions: Weigh Daily- Call MD for wt gain/loss 3 lbs overnight/5 lbs in 1 week
Activity Restrictions/Additional Instructions:
ACTIVITY:
-No strenuous activity: no heavy lifting, pushing, pulling anything over 15 pounds for one month
-continue to use stairs as tolerated
DRIVING RESTRICTIONS:
-No driving for one month or until approved by your surgeon
WOUND CARE:
-Shower daily. Use soap & water.
-No lotions, creams or powders on incision area.
DIET:
-continue a low fat/low cholesterol diet.
-IF you are diabetic, continue carb controlled diet.
CARDIAC REHAB:
-Please make appointment to start in 5-6 weeks with your local hospital program. (See Cardiac Rehabilitation Discharge Booklet).
SPECIALTY INSTRUCTIONS:
-Weigh yourself daily. Call your physician for any weight gain/loss of 3 lbs overnight or 5 lbs in one week.
-REPORT any clicking noise or uneven appearance of your sternum to your surgeon immediately.
-If you smoke, you are instructed to quit. The [place] smoking hotline phone number is [phone]
Instructions: Coronary artery bypass graft surgery - Discharge instructions, Caring for a closed surgical wound, Cardiac rehabilitation
Stand Alone Forms: DC Instructions- Cath/EP Lab
Referrals:
CT Transitional Care Nurse [Outside]
[facility] [Outside] - 08/31/24 1:00 pm
(Cardiac Rehab Orientation appointment is on 08/31/2024 at 1:00pm.
The Cardiac Rehab gym is located on the first floor of the [facility].)
Boogie Martin CRNP [Family Provider] -
Debra Acevedo PA-C [Specified Professional Personl] - 09/10/24 10:40 am
Cristofer Alcantar MD [Active] - 08/20/24 3:00 pm
Prescriptions:
New
atorvastatin 40 mg Tablet
40 mg PO HS Qty: 30 2RF
acetaminophen 325 mg Tablet
650 mg PO Q4HPRN PRN (Reason: mild pain,headache,temp >101F ) Qty: 30 0RF
clopidogrel 75 mg Tablet
75 mg PO DAILY Qty: 30 2RF
oxycodone 5 mg Tablet
5 mg PO Q4HPRN PRN (Reason: moderate pain) Qty: 30 0RF
metoprolol tartrate 25 mg Tablet
12.5 mg PO Q12 Qty: 60 2RF
Continued
tamsulosin 0.4 MG capsule
0.4 mg PO BID
ascorbic acid (vitamin C) 250 MG tablet
250 mg PO DAILY
cyanocobalamin (vitamin B-12) 1,000 MCG tablet
1,000 mcg PO DAILY
cholestyramine (with sugar) 4 GM powder in packet
4 gm PO HS
omega 0-sfs-axm-fish oil [Fish Oil] 1 EACH capsule
1 ea PO DAILY
therapeutic multivitamin Tablet
1 tab PO DAILY
aspirin 81 MG tablet,chewable
81 mg PO DAILY Qty: 0 0RF
finasteride 5 MG tablet
5 mg PO DAILY Qty: 0 0RF
Discharge Orders:
Discharge Patient (As Directed); Ordered 07/28/24
Ordered By: Salvador Steinberg
Care Plan Goals
Care Plan Goals:
Problem: Readiness for enhanced knowledge related to diagnosis and treatment plan
Goal: Understand your diagnosis and treatment plan needs, including medications if applicable.
Instructions: Know your diagnosis, underlying causes and treatment plan options, including medications if applicable. Consult with your health care team to learn about your diagnosis and treatment plan, including medications if applicable.
Discharge Date and Time
Print Language: KAZAKH
--- NOTE | 2024-07-28 12:30 | PTCARENOTE ---
Patient had shower in preparation for discharge home. Discharge instructions reviewed in detail with patient and son at bedside. Teach back utilized to assess understanding. Patient and son verbalized understanding and sent with discharge packet
information. Patient escorted via wheelchair to car.
== END 2024-07-28 13:38 | disposition home or self-care (01) | DRG 234 ==
LOC: CVICU 22:52
PROVIDERS: Anesthesiology; Emergency Medicine; Internal Medicine Interventional Cardiology; Nurse Practitioner; Nurse Practitioner Adult Health; Physician Assistant; Physician Assistant Surgical; ADMITTING PHYSICIAN Internal Medicine; ATTENDING PHYSICIAN Thoracic Surgery (Cardiothoracic Vascular Surgery); CONSULT PHYSICIAN Internal Medicine Cardiovascular Disease; EMERGENCY PHYSICIAN Emergency Medicine; FAMILY PHYSICIAN Nurse Practitioner Family; OTHER PHYSICIAN Internal Medicine Critical Care Medicine
PROC: B2151ZZ Fluoroscopy of Left Heart using Low Osmolar Contrast (ICD-10-PCS; 2024-07-18)
PROC: 4A023N7 Measurement of Cardiac Sampling and Pressure, Left Heart, Percutaneous Approach (ICD-10-PCS; 2024-07-18)
PROC: B2111ZZ Fluoroscopy of Multiple Coronary Arteries using Low Osmolar Contrast (ICD-10-PCS; 2024-07-18)
PROC: 5A1221Z Performance of Cardiac Output, Continuous (ICD-10-PCS; 2024-07-24)
PROC: B24BZZ4 Ultrasonography of Heart with Aorta, Transesophageal (ICD-10-PCS; 2024-07-24)
PROC: 02580ZZ Destruction of Conduction Mechanism, Open Approach (ICD-10-PCS; 2024-07-24)
PROC: 021109W Bypass Coronary Artery, Two Arteries from Aorta with Autologous Venous Tissue, Open Approach (ICD-10-PCS; 2024-07-24)
PROC: 06BP4ZZ Excision of Right Saphenous Vein, Percutaneous Endoscopic Approach (ICD-10-PCS; 2024-07-24)
PROC: 02100Z9 Bypass Coronary Artery, One Artery from Left Internal Mammary, Open Approach (ICD-10-PCS; 2024-07-24)
PROC: 02L70CK Occlusion of Left Atrial Appendage with Extraluminal Device, Open Approach (ICD-10-PCS; 2024-07-24)
DX: I21.4 Non-ST elevation (NSTEMI) myocardial infarction (principal); K50.90 Crohn's disease, unspecified, without complications; E87.3 Alkalosis; D62 Acute posthemorrhagic anemia; J98.11 Atelectasis; E87.1 Hypo-osmolality and hyponatremia; I25.10 Atherosclerotic heart disease of native coronary artery without angina pectoris; E78.2 Mixed hyperlipidemia; N40.0 Benign prostatic hyperplasia without lower urinary tract symptoms; I10 Essential (primary) hypertension; I48.0 Paroxysmal atrial fibrillation; I71.20 Thoracic aortic aneurysm, without rupture, unspecified; E80.4 Gilbert syndrome; E53.8 Deficiency of other specified B group vitamins; K21.9 Gastro-esophageal reflux disease without esophagitis; R73.03 Prediabetes; E86.1 Hypovolemia; I34.0 Nonrheumatic mitral (valve) insufficiency; E87.70 Fluid overload, unspecified; I95.81 Postprocedural hypotension; I25.2 Old myocardial infarction; Z79.82 Long term (current) use of aspirin; Z79.899 Other long term (current) drug therapy; Z87.891 Personal history of nicotine dependence; Z90.49 Acquired absence of other specified parts of digestive tract; Z95.5 Presence of coronary angioplasty implant and graft
CPT/HCPCS: 33259; 33285; 71045; 71046; 71250; 76937; 80048; 80053; 80061; 81003; 81015; 82248; 82330; 82565; 82805; 82810; 82947; 82962; 83036; 83735; 84100; 84132; 84302; 84484; 84520; 85014; 85018; 85025; 85027; 85049; 85347; 85610; 85730; 86850; 86900; 86901; 86920; 93005; 93306; 93312; 93320; 93325; 93458; 93880; 93970; 94002; 96374; 96376; 99152; 99153; 99285; C1764; C1894; J2916; P9045; Q9967

== ENCOUNTER → 2024-08-13 10:33 | Outpatient (REF) | payer MEDICARE, OTHER, SELFPAY | LOC: HWRAD 10:33 | PROVIDERS: ATTENDING PHYSICIAN Nurse Practitioner Family | DX: Z95.1 Presence of aortocoronary bypass graft (principal); R06.09 Other forms of dyspnea | CPT/HCPCS: 71046 ==

== ENCOUNTER → 2024-08-29 08:22 | Outpatient (REF) | payer MEDICARE, OTHER, SELFPAY ==
[2024-08-29 10:56] LABS: PSA, Total - Diagnostic 6.73 ng/ml (0.0-4.0)
== END ==
LOC: HWLAB 08:22
PROVIDERS: ATTENDING PHYSICIAN Specialist; FAMILY PHYSICIAN Nurse Practitioner Family
DX: R97.20 Elevated prostate specific antigen [PSA] (principal); J18.9 Pneumonia, unspecified organism
CPT/HCPCS: 36415; 71046; 84153

== ENCOUNTER 2024-08-31 16:47 | Outpatient (RCR) | payer MEDICARE, OTHER, SELFPAY | END 2024-08-31 23:59 | disposition home or self-care (01) | LOC: CRHB 16:47 | PROVIDERS: ATTENDING PHYSICIAN Internal Medicine Cardiovascular Disease | DX: I25.10 Atherosclerotic heart disease of native coronary artery without angina pectoris (principal); Z95.1 Presence of aortocoronary bypass graft | CPT/HCPCS: G0422 ==

== ENCOUNTER 2024-10-01 10:39 | Outpatient (RCR) | payer MEDICARE, OTHER, SELFPAY | END 2024-10-01 23:59 | disposition home or self-care (01) | LOC: CRHB 10:39 | PROVIDERS: ATTENDING PHYSICIAN Internal Medicine Cardiovascular Disease | DX: I25.10 Atherosclerotic heart disease of native coronary artery without angina pectoris (principal); Z95.1 Presence of aortocoronary bypass graft | CPT/HCPCS: G0422; G0423 ==

== ENCOUNTER 2024-10-31 10:35 | Outpatient (RCR) | payer MEDICARE, OTHER, SELFPAY | END 2024-10-31 23:59 | disposition home or self-care (01) | LOC: CRHB 10:35 | PROVIDERS: ATTENDING PHYSICIAN Internal Medicine Cardiovascular Disease | DX: I25.10 Atherosclerotic heart disease of native coronary artery without angina pectoris (principal); Z95.1 Presence of aortocoronary bypass graft | CPT/HCPCS: G0422; G0423 ==

== ENCOUNTER 2024-11-23 10:09 | Outpatient (RCR) | payer MEDICARE, OTHER, SELFPAY | END 2024-11-23 11:58 | disposition home or self-care (01) | LOC: CRHB 10:09 | PROVIDERS: ATTENDING PHYSICIAN Internal Medicine Cardiovascular Disease | DX: I25.10 Atherosclerotic heart disease of native coronary artery without angina pectoris (principal); Z95.1 Presence of aortocoronary bypass graft | CPT/HCPCS: G0422; G0423 ==

== ENCOUNTER → 2024-12-17 07:42 | Outpatient (REF) | payer MEDICARE, OTHER, SELFPAY ==
[2024-12-17 11:04] LABS: HDL Cholesterol 54 mg/dl; LDL Cholesterol, Calculated 34 mg/dl; Total Cholesterol 97 mg/dl (50-199); Triglyceride 47 mg/dl (10-149); Very Low Density Lipoprotein 9 mg/dl (0-30)
== END ==
LOC: HWLAB 07:42
PROVIDERS: ATTENDING PHYSICIAN Nurse Practitioner Family
DX: E78.2 Mixed hyperlipidemia (principal)
CPT/HCPCS: 36415; 80061

== ENCOUNTER → 2025-02-28 08:34 | Outpatient (REF) | payer MEDICARE, OTHER, SELFPAY ==
[2025-02-28 10:44] LABS: PSA, Total - Diagnostic 8.33 ng/ml (0.0-4.0)
== END ==
LOC: HWLAB 08:34
PROVIDERS: ATTENDING PHYSICIAN Specialist; FAMILY PHYSICIAN Nurse Practitioner Family
DX: R97.20 Elevated prostate specific antigen [PSA] (principal)
CPT/HCPCS: 36415; 84153

== ENCOUNTER → 2025-04-02 08:13 | Outpatient (REF) | payer MEDICARE, OTHER, SELFPAY ==
[2025-04-02 09:42] LABS: Hematocrit 38.3 % (39.0-52.0); Hemoglobin 13.0 g/dL (13.0-18.0); Mean Corp Hgb Conc. 33.9 g/dL (33.0-37.0); Mean Corpuscular Volume 88.0 fL (80.0-94.0); Nucleated Red Blood Cells % 0 % (-); Platelet Count 234 10^3/uL (130-400); Red Cell Dist. Width 13.3 % (11.5-14.5)
[2025-04-02 11:06] LABS: ALT (SGPT) 24 U/L (0-50); AST (SGOT) 24 U/L (17-59); Albumin 3.7 g/dl (3.5-5.0); Alkaline Phosphatase 64 U/L (38-126); Blood Urea Nitrogen 24 mg/dl (9-20); Calcium 9.1 mg/dl (8.4-10.2); Carbon Dioxide 27 mmol/L (22-30); Chloride 107 mmol/L (98-107); Glucose 112 mg/dl (70-99); HDL Cholesterol 67 mg/dl; LDL Cholesterol, Calculated 36 mg/dl; Potassium 4.3 mmol/L (3.5-5.1); Sodium 138 mmol/L (135-145); Total Protein 6.6 g/dl (6.3-8.2); Very Low Density Lipoprotein 12 mg/dl (0-30); eGFR > 60.00
== END ==
LOC: HWLAB 08:13
PROVIDERS: ATTENDING PHYSICIAN Nurse Practitioner Family
DX: I25.10 Atherosclerotic heart disease of native coronary artery without angina pectoris (principal); I21.4 Non-ST elevation (NSTEMI) myocardial infarction; Z95.1 Presence of aortocoronary bypass graft; E78.2 Mixed hyperlipidemia; K50.00 Crohn's disease of small intestine without complications; Z95.5 Presence of coronary angioplasty implant and graft; I10 Essential (primary) hypertension; K21.9 Gastro-esophageal reflux disease without esophagitis; I48.0 Paroxysmal atrial fibrillation; E80.4 Gilbert syndrome; R97.20 Elevated prostate specific antigen [PSA]; R73.01 Impaired fasting glucose; R42 Dizziness and giddiness
CPT/HCPCS: 36415; 80053; 80061; 84443; 85025